=== PATIENT | female | born 1955 | race Caucasian/White ===

== ENCOUNTER 2020-09-13 09:58 | Outpatient (REF) | payer OTHER, SELFPAY ==
[2020-09-13 11:35] LABS: Digoxin 0.6 ng/mL (0.8-2.0)
[2020-09-13 11:50] LABS: Cholesterol 143 mg/dL; HDL Cholesterol 44 mg/dL; LDL Cholesterol Calculated 65 mg/dl; Triglycerides 173 mg/dL
[2020-09-13 11:56] LABS: Anion Gap 12 (12-20); Blood Urea Nitrogen 20 mg/dL (9-16); Calcium 8.9 mg/dL (8.4-10.2); Carbon Dioxide 28 mmol/L (22-29); Chloride 105 mmol/L (96-108); Estimated Glomerular Filt Rate 42; Glucose Random 133 mg/dL (60-115); Potassium 4.3 mmol/l (3.3-5.1); Sodium 141 mmol/L (135-145)
[2020-09-13 12:17] LABS: Thyroid Stimulating Hormone 2.43 mIU/mL (0.32-4.0)
== END 2020-09-13 09:59 | disposition home or self-care (01) ==
LOC: HO.HMGCX 09:58
PROVIDERS: PCP Internal Medicine; Referring Provider Internal Medicine Cardiovascular Disease; Visit Provider Internal Medicine
DX: I48.20 Chronic atrial fibrillation, unspecified (principal)
CPT/HCPCS: 80048; 80061; 80162; 84443

== ENCOUNTER 2020-12-04 13:45 | Outpatient (REF) | payer OTHER, SELFPAY ==
[2020-12-04 17:22] LABS: Anion Gap 16 (12-20); Blood Urea Nitrogen 24 mg/dL (9-16); Calcium 9.9 mg/dL (8.4-10.2); Carbon Dioxide 28 mmol/L (22-29); Chloride 105 mmol/L (96-108); Digoxin 0.8 ng/mL (0.8-2.0); Estimated Glomerular Filt Rate 40; Glucose Fasting 120 mg/dL (60-99); Potassium 4.8 mmol/l (3.3-5.1); Sodium 144 mmol/L (135-145)
== END 2020-12-04 13:46 | disposition home or self-care (01) ==
LOC: HO.HMGCLDS 13:45
PROVIDERS: PCP Internal Medicine; Visit Provider Internal Medicine Cardiovascular Disease
DX: I48.0 Paroxysmal atrial fibrillation (principal); E78.5 Hyperlipidemia, unspecified
CPT/HCPCS: 36415; 80048; 80162

== ENCOUNTER → 2020-12-10 13:38 | Outpatient (BNVA) | payer OTHER, SELFPAY | PROVIDERS: PCP Pediatrics; Visit Provider Internal Medicine Cardiovascular Disease | DX: I48.91 Unspecified atrial fibrillation (principal); I50.9 Heart failure, unspecified | CPT/HCPCS: 99212 ==

== ENCOUNTER → 2021-01-10 14:00 | Outpatient (REF) | payer OTHER, SELFPAY ==
--- NOTE | 2021-01-10 14:07 | CA_ITS ---
Transthoracic Echocardiogram Patient (Last, First, Middle): Sunitha Santana, Gender: Female Date of : 1955 Age: 65 Procedure Date: 01/10/2021 Procedure Type: Transthoracic Echocardiogram Location: OP Height: 175.26 cm Weight: 109.77 kg BSA: 2.24 m2 Heart Rate: bpm BP: 124 / 74 mmHg Gate Watchman: ARNALDO Referring MD: Abel Lopez MD Obgyn Hospitalist Physician: Abel Lopez MD Symptoms: I48.91 - Unspecified atrial fibrillation Study Quality: Fair ECG Rhythm: Atrial Fibrillation Conclusions: - 1. [id number] LV systolic dysfunction with LVEF of 40-45% with mild LVH 2. Severely dilated left atrium 3. Mildly dilated ascending aorta 4. Mild mitral regurgitation 5. Normal RV systolic pressure 6. No gross pericardial effusion Findings Left Ventricle Normal left ventricular cavity size. There is mildly increased left ventricular wall thickness. The left ventricular systolic function is mild to moderately decreased. The visually estimated ejection fraction is between 40-45%. Diastolic function is indeterminate on the basis of available data. Right Ventricle Normal right ventricular cavity size and systolic function. Atria The left atrium is severely dilated. Interatrial shunt cannot be excluded. The right atrium is mildly dilated. Aortic Valve There is mild calcification of the aortic valve. There is no aortic valve stenosis. There is no aortic valve regurgitation. Mitral Valve There is mild anterior and posterior mitral leaflet thickening. There is trace mitral valve regurgitation. There is no mitral valve stenosis. Pulmonic Valve The pulmonic valve was not well visualized. Tricuspid Valve Likely normal tricuspid valve structure and function. There is mild tricuspid valve regurgitation. The right ventricular systolic pressure is normal. The right ventricular systolic pressure is 25 mmHg. Normal right atrial pressure. There is no evidence of pulmonary hypertension. Great Vessels The pulmonary artery was not well visualized. There is mild dilatation of the ascending aorta measuring 4.00 cm. Venous The inferior vena cava is normal in size and collapses greater than 50% with inspiration. Pericardium/Pleural There is no evidence of pericardial effusion. Prior Study Comparison No significant change compared to prior study dated: 01/06/2020. Measurements 2D Linear Measurements IVSd: 1.61 0.6-0.9/0.6-1.0 cm LVIDd: 4.54 3.9-5.3/4.2-5.9 cm LVIDd Index: 2.03 2.4-3.2/2.2-3.1 cm/m2 LVIDs: 3.65 2.0-3.6 cm LVPWd: 1.15 0.7-1.1 cm Ao Root: 3.20 2.1-3.5 cm LA Diam: 4.50 2.7-3.8/3.0-4.0 cm LAIDs Index: 2.01 1.5-2.3 cm/m2 LV Mass: 307.26 67-162/88-224 g LV Mass Index: 137.17 43-95/49-115 g/m2 LVOT Diam: 2.10 3.0+(-)1.3 cm 2D Systolic Function EF 4C: 52.20 >55% EF 2C: 47.80 >55% EF BiP: 49.60 >55% Mitral Valve MV Pk E: 0.51 MV Decel Time: 127.00 E'Lateral: 6.97 E'Medial: 6.69 E/E' Med: 7.70 E/E' Lat: 7.30 PHT: 37.00 MVA PHT: 5.95 Decel [place]: 4.16 Aortic Valve AoV Pk Tacho: 0.95 AoV Pk Grad: 4.00 LVOT LVOT Pk Tacho: 0.72 LVOT Mn Tacho: 0.42 LVOT VTI: 0.11 LVOT Pk Grad: 2.00 LVOT Mn Grad: 1.00 LVOT Diam: 2.10 LVOT Area: 3.46 Diastolic Function MV Pk E: 0.51 E'Medial: 6.69 E/E' Med: 7.70 E' Laterial: 6.97 E/E' Lat: 7.30 Tricuspid Valve TR Pk Tacho: 2.35 TR Pk Grad: 22.00 RA Press: 3.00 RVSP: 25.00 Great Vessels Aorta Ao Root-2D: 3.20 2.0-3.7 cm Ao Asc: 4.00 2.1-3.4 cm Updated in Other Vendor System with Status of Final Abel Lopez MD electronically signed on 01/12/2021 10:29:18 AM with status of Final
== END ==
LOC: HO.CARD 14:00
PROVIDERS: PCP Internal Medicine; Visit Provider Internal Medicine Cardiovascular Disease
DX: I48.91 Unspecified atrial fibrillation (principal); I50.9 Heart failure, unspecified
CPT/HCPCS: 93306

== ENCOUNTER 2021-04-04 10:09 | Outpatient (REF) | payer OTHER, SELFPAY ==
[2021-04-04 12:15] LABS: Cholesterol 160 mg/dL; HDL Cholesterol 41 mg/dL; LDL Cholesterol Calculated 72 mg/dl; Triglycerides 237 mg/dL
[2021-04-04 12:19] LABS: Thyroid Stimulating Hormone 2.07 uIU/mL (0.32-4.0)
== END 2021-04-04 10:10 | disposition home or self-care (01) ==
LOC: HO.HMGCLDS 10:09
PROVIDERS: PCP Internal Medicine; Visit Provider Internal Medicine
DX: E11.9 Type 2 diabetes mellitus without complications (principal); E03.9 Hypothyroidism, unspecified
CPT/HCPCS: 36415; 80061; 84443

== ENCOUNTER → 2021-06-04 13:27 | Outpatient (BNVA) | payer OTHER, SELFPAY | PROVIDERS: PCP Internal Medicine; Referring Provider Internal Medicine; Visit Provider Internal Medicine Cardiovascular Disease | DX: I48.91 Unspecified atrial fibrillation (principal); I50.9 Heart failure, unspecified; I42.9 Cardiomyopathy, unspecified | CPT/HCPCS: 93005; 99212 ==

== ENCOUNTER 2021-06-24 09:09 | Outpatient (REF) | payer OTHER, SELFPAY ==
[2021-06-24 11:15] LABS: MANUAL DIFF FLAG NO
[2021-06-24 11:29] LABS: Basophils Absolute Auto 0.1 X10*3/uL (0.0-0.2); Basophils Percent Auto 0.5 % (0-2); Eosinophils Absolute Auto 0.3 X10*3/uL (0.0-0.4); Eosinophils Percent Auto 2.5 % (0-4); Hematocrit 43.4 % (37-47); Hemoglobin 13.5 g/dl (12.0-16.0); Imm Gran Abs Auto 0.05 X10*3/uL (0.00-0.03); Imm Gran Pct Auto 0.5 % (0.0-0.4); Lymphocytes Absolute Auto 2.2 X10*3/uL (1.2-4.9); Lymphocytes Percent Auto 22.6 % (20-40); Mean Corpuscular HGB Conc 31.1 g/dl (31.0-35.0); Mean Corpuscular Volume 83.6 fL (80-98); Mean Platelet Volume 10.4 fL (9.4-12.3); Monocytes Absolute Auto 0.7 X10*3/uL (0.1-1.2); Neutrophils Absolute Auto 6.6 X10*3/uL (2.0-8.3); Neutrophils Percent Auto 66.9 % (45-73); Platelet Count 317 X10*3/uL (160-400); Red Blood Count 5.19 X10*6/uL (4.20-5.50); Red Cell Distribution Width 16.3 % (11.0-16.0); White Blood Count 9.9 X10*3/uL (4.8-10.8)
[2021-06-24 11:34] LABS: B Type Natriuretic Peptide 125 pg/mL (<100)
[2021-06-24 11:35] LABS: Estimated Average Glucose 157 mg/dL; Hemoglobin A1c % 7.1 %
[2021-06-24 12:02] LABS: Thyroid Stimulating Hormone 3.66 uIU/mL (0.32-4.0)
[2021-06-24 12:23] LABS: Digoxin 0.6 ng/mL (0.8-2.0)
[2021-06-24 12:39] LABS: Alanine Aminotransferase 9 U/L (0-31); Alkaline Phosphatase 51 U/L (39-117); Anion Gap 15 (12-20); Aspartate Amino Transferase 17 U/L (5-31); Bilirubin Total 0.6 mg/dL (0.0-1.0); Blood Urea Nitrogen 32 mg/dL (9-16); Calcium 9.9 mg/dL (8.4-10.2); Carbon Dioxide 25 mmol/L (22-29); Chloride 106 mmol/L (96-108); Cholesterol 152 mg/dL; Estimated Glomerular Filt Rate 31; Glucose Fasting 139 mg/dL (60-99); HDL Cholesterol 43 mg/dL; LDL Cholesterol Calculated 74 mg/dl; Potassium 4.6 mmol/L (3.3-5.1); Sodium 141 mmol/L (135-145); Total Protein 6.4 g/dL (6.5-8.0); Triglycerides 175 mg/dL
[2021-06-24 14:36] LABS: Creatinine Urine 101.73 mg/dL; Microalbum/Creatinine Ratio Ur 106.1 ug/mg cr
== END 2021-06-24 09:10 | disposition home or self-care (01) ==
LOC: HO.HMGCLDS 09:09
PROVIDERS: Absent Provider Internal Medicine Cardiovascular Disease; PCP Internal Medicine; Visit Provider Internal Medicine
DX: Z00.00 Encounter for general adult medical examination without abnormal findings (principal); I42.9 Cardiomyopathy, unspecified; E11.9 Type 2 diabetes mellitus without complications; I48.20 Chronic atrial fibrillation, unspecified; E03.9 Hypothyroidism, unspecified
CPT/HCPCS: 36415; 80048; 80053; 80061; 80162; 82043; 83036; 83880; 84443; 85025

== ENCOUNTER 2021-07-24 09:58 | Outpatient (REF) | payer OTHER, SELFPAY ==
[2021-07-24 11:40] LABS: Anion Gap 13 (12-20); Blood Urea Nitrogen 28 mg/dL (9-16); Calcium 10.1 mg/dL (8.4-10.2); Carbon Dioxide 27 mmol/L (22-29); Chloride 106 mmol/L (96-108); Estimated Glomerular Filt Rate 35; Glucose Random 135 mg/dL (60-115); Potassium 4.8 mmol/L (3.3-5.1); Sodium 141 mmol/L (135-145)
== END 2021-07-24 09:59 | disposition home or self-care (01) ==
LOC: HO.HMGCLDS 09:58
PROVIDERS: PCP Internal Medicine; Visit Provider Internal Medicine
DX: N28.9 Disorder of kidney and ureter, unspecified (principal)
CPT/HCPCS: 36415; 80048

== ENCOUNTER 2021-11-21 13:40 | Outpatient (REF) | payer OTHER, SELFPAY ==
[2021-11-21 16:59] LABS: Cholesterol 157 mg/dL; HDL Cholesterol 45 mg/dL; LDL Cholesterol Calculated 67 mg/dl; Triglycerides 226 mg/dL
[2021-11-21 17:19] LABS: Thyroid Stimulating Hormone 2.19 uIU/mL (0.32-4.0)
== END 2021-11-21 13:41 | disposition home or self-care (01) ==
LOC: HO.HMGCLDS 13:40
PROVIDERS: PCP Internal Medicine; Visit Provider Internal Medicine
DX: E03.9 Hypothyroidism, unspecified (principal); E11.9 Type 2 diabetes mellitus without complications
CPT/HCPCS: 36415; 80061; 84443

== ENCOUNTER 2021-12-12 13:27 | Outpatient (REF) | payer OTHER, SELFPAY ==
[2021-12-12 14:51] LABS: MANUAL DIFF FLAG NO
[2021-12-12 15:08] LABS: Basophils Percent Auto 0.4 % (0-2); Eosinophils Absolute Auto 0.3 X10*3/uL (0.0-0.4); Eosinophils Percent Auto 2.6 % (0-4); Hematocrit 44.8 % (37.0-47.0); Imm Gran Abs Auto 0.04 X10*3/uL (0.00-0.03); Imm Gran Pct Auto 0.4 % (0.0-0.4); Lymphocytes Absolute Auto 2.9 X10*3/uL (1.2-4.9); Lymphocytes Percent Auto 25.7 % (20-40); Mean Corpuscular HGB Conc 31.3 g/dl (31.0-35.0); Mean Corpuscular Hemoglobin 27.2 pg (27.0-33.0); Mean Platelet Volume 9.9 fL (9.4-12.3); Monocytes Absolute Auto 0.7 X10*3/uL (0.1-1.2); Monocytes Percent Auto 6.6 % (2-11); Neutrophils Absolute Auto 7.2 x10*3/uL (2.0-8.3); Neutrophils Percent Auto 64.3 % (45-73); Platelet Count 297 X10*3/uL (160-400); Red Blood Count 5.15 X10*6/uL (4.20-5.50); Red Cell Distribution Width 14.5 % (11.0-16.0); White Blood Count 11.1 X10*3/uL (4.8-10.8)
[2021-12-12 15:28] LABS: Alanine Aminotransferase 11 U/L (0-31); Albumin Level 3.9 g/dL (3.5-5.0); Alkaline Phosphatase 54 U/L (39-117); Anion Gap 11 (12-20); Aspartate Amino Transferase 19 U/L (5-31); Bilirubin Total 0.7 mg/dL (0.0-1.0); Blood Urea Nitrogen 27 mg/dL (9-16); Carbon Dioxide 27 mmol/L (22-29); Chloride 107 mmol/L (96-108); Cholesterol 151 mg/dL; Estimated Glomerular Filt Rate 34; Glucose Fasting 105 mg/dL (60-99); HDL Cholesterol 39 mg/dL; LDL Cholesterol Calculated 59 mg/dl; Potassium 4.6 mmol/L (3.3-5.1); Sodium 140 mmol/L (135-145); Total Protein 6.5 g/dL (6.5-8.0); Triglycerides 265 mg/dL
[2021-12-12 15:31] LABS: Digoxin 0.7 ng/mL (0.8-2.0)
== END 2021-12-12 13:28 | disposition home or self-care (01) ==
LOC: HO.LAB 13:27
PROVIDERS: Internal Medicine; PCP Internal Medicine; Referring Provider Internal Medicine; Visit Provider Internal Medicine Cardiovascular Disease
DX: Z00.00 Encounter for general adult medical examination without abnormal findings (principal); I42.9 Cardiomyopathy, unspecified; I48.20 Chronic atrial fibrillation, unspecified; I11.0 Hypertensive heart disease with heart failure; E78.5 Hyperlipidemia, unspecified; E03.9 Hypothyroidism, unspecified; R53.83 Other fatigue; Z13.0 Encounter for screening for diseases of the blood and blood-forming organs and certain disorders involving the immune mechanism; Z87.891 Personal history of nicotine dependence; Z91.018 Allergy to other foods; Z79.84 Long term (current) use of oral hypoglycemic drugs; Z79.899 Other long term (current) drug therapy
CPT/HCPCS: 36415; 80048; 80053; 80061; 80162; 85025; 85027; 99212

== ENCOUNTER → 2022-01-30 12:49 | Outpatient (REF) | payer OTHER, SELFPAY ==
--- NOTE | 2022-01-30 12:52 | CA_ITS ---
Transthoracic Echocardiogram Patient (Last, First, Middle): Sunitha Santana, Gender: Female Date of : 1955 Age: 66 Procedure Date: 01/30/2022 Procedure Type: Transthoracic Echocardiogram Location: OP Height: 175.26 cm Weight: 105.69 kg BSA: 2.20 m2 Heart Rate: bpm BP: 130 / 75 mmHg Insolvency Practitioner: EL Referring MD: Abel Lopez MD Symptoms: I42.9 - Cardiomyopathy, unspecified Study Quality: Fair ECG Rhythm: Atrial Fibrillation Conclusions: - The left ventricular systolic function is low normal. The visually estimated ejection fraction is between 50-55%. - Mildly increased right ventricular cavity size. - The left atrium is severely dilated. Findings Left Ventricle Normal left ventricular cavity size. There is mildly increased left ventricular wall thickness. The left ventricular systolic function is low normal. The visually estimated ejection fraction is between 50-55%. There is no evidence of regional wall motion abnormalities. Diastolic function is indeterminate on the basis of available data. Right Ventricle Mildly increased right ventricular cavity size. There is normal right ventricular systolic function. Atria The left atrium is severely dilated. The right atrium is normal in size. Aortic Valve There is a normal trileaflet aortic valve. There is mild calcification of the aortic valve. There is no aortic valve stenosis. There is no aortic valve regurgitation. Mitral Valve The mitral valve appears normal. There is trace mitral valve regurgitation. There is no mitral valve stenosis. Pulmonic Valve The pulmonic valve was not well visualized. Tricuspid Valve There is mild tricuspid valve regurgitation. The pulmonary artery systolic pressure is normal. Great Vessels The aortic annulus, sinuses of valsalva, and asc aorta are normal in size. Venous The inferior vena cava is normal in size and collapses greater than 50% with inspiration. Pericardium/Pleural There is no evidence of pericardial effusion. Prior Study Comparison Changes noted compared to prior study dated: 01/10/2021. Improvement in LVEF. Measurements 2D Linear Measurements IVSd: 1.54 0.6-0.9/0.6-1.0 cm LVIDd: 4.55 3.9-5.3/4.2-5.9 cm LVIDd Index: 2.07 2.4-3.2/2.2-3.1 cm/m2 LVIDs: 3.29 2.0-3.6 cm LVPWd: 1.10 0.7-1.1 cm LA Diam: 4.60 2.7-3.8/3.0-4.0 cm LAIDs Index: 2.09 1.5-2.3 cm/m2 LV Mass: 288.60 67-162/88-224 g LV Mass Index: 131.18 43-95/49-115 g/m2 LVOT Diam: 2.10 3.0+(-)1.3 cm 2D Systolic Function EF 4C: 53.80 >55% EF 2C: 55.10 >55% EF BiP: 54.50 >55% Mitral Valve MV Pk E: 0.68 MV Decel Time: 231.00 E'Lateral: 12.20 E'Medial: 6.96 E/E' Med: 9.80 E/E' Lat: 5.60 PHT: 68.00 MVA PHT: 3.24 Decel [place]: 2.95 Aortic Valve AoV Pk Tacho: 1.10 AoV Mn Tacho: 0.74 AoV VTI: 0.24 AoV Pk Grad: 5.00 Aov Mn Grad: 3.00 KEIKO Cont.VTI: 2.24 LVOT LVOT Pk Tacho: 0.86 LVOT Mn Tacho: 0.56 LVOT VTI: 0.16 LVOT Pk Grad: 3.00 LVOT Mn Grad: 2.00 LVOT Diam: 2.10 LVOT Area: 3.46 Diastolic Function MV Pk E: 0.68 E'Medial: 6.96 E/E' Med: 9.80 E' Laterial: 12.20 E/E' Lat: 5.60 Right Ventricle TAPSE (mm): 22.60 TVS' Tacho: 10.10 Tricuspid Valve TR Pk Tacho: 2.36 TR Pk Grad: 22.00 RA Press: 3.00 RVSP: 25.00 Great Vessels Aorta Sinus of Valsalva: 3.51 2.0-3.[address] [place]: 3.19 1.7-3.4 cm Ao Asc: 3.70 2.1-3.4 cm Updated in Other Vendor System with Status of Final Mahin Queen MD electronically signed on 02/01/2022 12:01:36 PM with status of Final
== END ==
LOC: HO.CARD 12:49
PROVIDERS: PCP Internal Medicine; Visit Provider Internal Medicine Cardiovascular Disease
DX: I42.9 Cardiomyopathy, unspecified (principal)
CPT/HCPCS: 93306

== ENCOUNTER → 2022-06-10 10:06 | Outpatient (BNVA) | payer OTHER, SELFPAY | PROVIDERS: PCP Internal Medicine; Referring Provider Internal Medicine; Visit Provider Internal Medicine Cardiovascular Disease | DX: I48.20 Chronic atrial fibrillation, unspecified (principal); I48.91 Unspecified atrial fibrillation | CPT/HCPCS: 93005; 99212 ==

== ENCOUNTER 2022-07-17 09:11 | Outpatient (REF) | payer OTHER, SELFPAY ==
[2022-07-17 11:38] LABS: MANUAL DIFF FLAG NO
[2022-07-17 11:50] LABS: Basophils Absolute Auto 0.1 X10*3/uL (0.0-0.2); Basophils Percent Auto 0.7 % (0-2); Eosinophils Absolute Auto 0.2 X10*3/uL (0.0-0.4); Eosinophils Percent Auto 2.6 % (0-4); Hematocrit 45.5 % (37.0-47.0); Hemoglobin 14.6 g/dl (12.0-16.0); Imm Gran Abs Auto 0.04 X10*3/uL (0.00-0.03); Imm Gran Pct Auto 0.4 % (0.0-0.4); Lymphocytes Absolute Auto 2.5 X10*3/uL (1.2-4.9); Lymphocytes Percent Auto 27.3 % (20-40); Mean Corpuscular HGB Conc 32.1 g/dl (31.0-35.0); Mean Corpuscular Hemoglobin 27.7 pg (27.0-33.0); Mean Corpuscular Volume 86.3 fL (80.0-98.0); Mean Platelet Volume 10.3 fL (9.4-12.3); Monocytes Absolute Auto 0.7 X10*3/uL (0.1-1.2); Monocytes Percent Auto 7.2 % (2-11); Neutrophils Absolute Auto 5.7 x10*3/uL (2.0-8.3); Neutrophils Percent Auto 61.8 % (45-73); Platelet Count 271 X10*3/uL (160-400); Red Blood Count 5.27 X10*6/uL (4.20-5.50); Red Cell Distribution Width 14.2 % (11.0-16.0); White Blood Count 9.2 X10*3/uL (4.8-10.8)
[2022-07-17 11:52] LABS: Estimated Average Glucose 154 mg/dL
[2022-07-17 12:00] LABS: Alanine Aminotransferase 10 U/L (0-31); Albumin Level 3.9 g/dL (3.5-5.0); Alkaline Phosphatase 49 U/L (39-117); Anion Gap 17 (12-20); Aspartate Amino Transferase 17 U/L (5-31); Bilirubin Total 0.8 mg/dL (0.0-1.0); Blood Urea Nitrogen 31 mg/dL (9-16); Calcium 9.8 mg/dL (8.4-10.2); Carbon Dioxide 24 mmol/L (22-29); Chloride 106 mmol/L (96-108); Cholesterol 166 mg/dL; Estimated Glomerular Filt Rate 33; Glucose Fasting 146 mg/dL (60-99); HDL Cholesterol 42 mg/dL; LDL Cholesterol Calculated 78 mg/dl; Potassium 4.5 mmol/L (3.3-5.1); Sodium 142 mmol/L (135-145); Total Protein 6.2 g/dL (6.5-8.0); Triglycerides 234 mg/dL
[2022-07-17 12:15] LABS: Digoxin 0.7 ng/mL (0.8-2.0)
[2022-07-17 12:21] LABS: Thyroid Stimulating Hormone 2.88 uIU/mL (0.32-4.0)
[2022-07-17 16:20] LABS: Creatinine Urine 72.19 mg/dL; Microalbum/Creatinine Ratio Ur 23.5 ug/mg cr
== END 2022-07-17 09:12 | disposition home or self-care (01) ==
LOC: HO.HMGCLDS 09:11
PROVIDERS: Absent Provider Internal Medicine Cardiovascular Disease; PCP Internal Medicine; Visit Provider Internal Medicine
DX: Z00.00 Encounter for general adult medical examination without abnormal findings (principal); Z13.0 Encounter for screening for diseases of the blood and blood-forming organs and certain disorders involving the immune mechanism; I48.20 Chronic atrial fibrillation, unspecified; E11.69 Type 2 diabetes mellitus with other specified complication; E66.01 Morbid (severe) obesity due to excess calories; Z79.899 Other long term (current) drug therapy
CPT/HCPCS: 36415; 80048; 80053; 80061; 80162; 82043; 83036; 84443; 85025

== ENCOUNTER 2022-08-04 06:38 | Day surgery (SDC) | payer OTHER, SELFPAY ==
[2022-07-29 13:33] VITALS: BMI 34.1
--- NOTE | 2022-07-31 13:29 | MHC.SHP ---
Pre-Procedural Eval Section A Date of Service: 07/31/22 The patient is an INPATIENT: No Changes since office visit: No Cold of Flu in the past 2 weeks, No New Medical Problems, No Changes in Medication and No Patient answered all questions The History & Physical has been completed within 30 days and I have reviewed it.: Yes Section B Chief Complaint: Age-related nuclear cataract, left eye Allergies: Allergies Allergy/AdvReac Type Severity Reaction Status Date / Time onion [ONIONS] Allergy Mild ITCHING,HIV Verified 07/24/22 08:54 ES Plan Diagnosis/Plan: Unchanged I have reviewed the history and physical and performed a pertinent physical examination on my patient. No changes have occurred unless specified.
--- NOTE | 2022-08-01 09:20 | HO.ANESPROP2 ---
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) Preop exam for internal medicine (Acute) Obesity (Acute) Hypertension (Acute) Cardiomyopathy (Acute) Hyperlipidemia (Acute) Hypothyroidism (Acute) Atrial fibrillation (Acute) Heart failure (Acute) Past Medical History Medical History (Updated 07/29/22 @ 13:45 by Sherrie Lincoln RN) Atrial fibrillation Cardiomyopathy Heart failure History of cardioversion Hyperlipidemia Hypertension Hypothyroidism Obesity Sleep apnea Family History Family History Family/Other Medical history unknown Surgical History Surgical History (Updated 07/29/22 @ 13:39 by Sherrie Lincoln RN) H/O colonoscopy History of esophagogastroduodenoscopy (EGD) History of incisional hernia repair Hx of hernia repair Social History Social History Housing: House Alcohol intake: current Alcohol intake frequency: holidays/special occasions only Patient Tobacco Use Status: Former Tobacco user Tobacco use type: Cigarette e-Cigarette/Vaping Use: Never Used Second Hand Smoke Exposure: No Advance Directives: No Advance Directives Information Provided: Yes (brochure mailed) Advance Directives on File: No service: No Current occupational status: retired Cognitive needs: Yes (cane/ transport chair) Hearing needs: No Vision needs: Yes (reading glasses) Meds Allergies Allergy/AdvReac Type Severity Reaction Status Date / Time onion [ONIONS] Allergy Mild ITCHING,HIV Verified 07/24/22 08:54 ES Exam Exam Date and Time: August 01, 2022 0920 Height,Weight and Vital Signs: Height 5 ft 9 in Weight 104.78 kg Narrative Narrative: EKG 05/2022 atrial fibrillation with nonspecific ST changes ECHO 2021 Conclusions: - The left ventricular systolic function is low normal.? The ? ? visually estimated ejection fraction is between 50-55%.? - Mildly increased right ventricular cavity size.? - The left atrium is severely dilated. ? Assessment and Plan Assessment Anesthesia Assessment: Chart Reviewed Documented by User: Carl Matthew MD 08/04/22 08:16 [facility] Past Medical History Medical History (Updated 07/29/22 @ 13:45 by Sherrie Lincoln RN) Atrial fibrillation Cardiomyopathy Heart failure History of cardioversion Hyperlipidemia Hypertension Hypothyroidism Obesity Sleep apnea Family History Family History Family/Other Medical history unknown Family history of problems with anesthesia: No Surgical History Surgical History (Updated 07/29/22 @ 13:39 by Sherrie Lincoln RN) H/O colonoscopy History of esophagogastroduodenoscopy (EGD) History of incisional hernia repair Hx of hernia repair History of Problems with Anesthesia: No Social History Social History Housing: House Alcohol intake: current Alcohol intake frequency: holidays/special occasions only Patient Tobacco Use Status: Former Tobacco user Tobacco use type: Cigarette e-Cigarette/Vaping Use: Never Used Second Hand Smoke Exposure: No Advance Directives: No Advance Directives Information Provided: Yes (brochure mailed) Advance Directives on File: No service: No Current occupational status: retired Cognitive needs: Yes (cane/ transport chair) Hearing needs: No Vision needs: Yes (reading glasses) Meds Allergies Allergy/AdvReac Type Severity Reaction Status Date / Time onion [ONIONS] Allergy Mild ITCHING,HIV Verified 07/24/22 08:54 ES Exam Airway Mallampati Class: II TM Dist: >3cm Neck ROM: Full Denture: Upper and Lower Loose/Missing/Broken Teeth: Yes Heart: irreg irreg +[id number] Lungs: cta b/l Assessment and Plan Assessment Anesthesia Assessment: Anesthesia Plan Discussed Final Anesthetic Review Family History of Problems with Anesthesia: No History of Problems with Anesthesia: No NPO: Yes ASA Class: III Final Preanesthetic Review: No Changes in Pt Med Stat, Meds/Allgs Chart Reviewed, Consent Obtained/Reviewed and Anes Risks/Benef Reviewed Patient Risk: Intermediate Procedure Risk: Low Assessment/Block/Sedation in SS: Assess/Block/Sedation-SS Anesthetic Plan Anesthetic Plan: MAC: and Agree w/ Assess. and Plan Disposition: Standard PACU
[2022-08-04 07:53] VITALS: BP 114/71; PULSE 69; RESP 17; TEMP 36.4; O2SAT 94
[2022-08-04] MEDS: Tetracaine HCl/PF 0.5% Oph Sol 4 ML DROPS 1 DROP EYE-LEFT (07:58)
[2022-08-04] MEDS: Lactated Ringers 500 ML 50 ML IV (08:02)
[2022-08-04] MEDS: Cyclopentolate 1 % Ophth Sol 2 ML DRPBTL 1 DROP EYE-LEFT ×3 (08:03→08:11)
[2022-08-04] MEDS: Tropicamide 1 % Ophth Sol 3 ML BTL 1 DROP EYE-LEFT ×3 (08:04→08:12)
[2022-08-04 08:06] LABS: Glucose, Whole Blood 147 mg/dL (60-115)
[2022-08-04] MEDS: Phenylephrine HCL 2.5% Oph SoL 2 ML BOTTLE 1 DROP EYE-LEFT ×3 (08:06→08:14)
--- NOTE | 2022-08-04 08:58 | HO.PNOPHT ---
Ophthalmology Procedure Procedure Date of Service: 08/04/22 Ophthalmology Viscoelastic: Healsandy Duet Dual Pack Pro Ophthalmology Lenses: TECGERMÁN [id number] (18) Procedure Notes: PREOPERATIVE DIAGNOSIS: Decreased visual acuity left eye secondary to cataract POSTOPERATIVE DIAGNOSIS: Same PROCEDURE: Left cataract extraction with intraocular lens insertion SURGEON: Felix Wu M.D. ANESTHESIA: Topical/MAC ESTIMATED BLOOD LOSS: None COMPLICATIONS: None After obtaining informed consent, the patient was brought to the operation room suite and placed in the supine position. After adequate sedation per anesthesia, topical drops of Tetracaine were given to the left eye. The eye was then prepped and draped in the usual sterile fashion. The operating room microscope was then positioned over the operative eye and a lid speculum placed. A paracentesis was created. Viscoelastic was then instilled into the anterior chamber. A three plane incision was then created temporally, utilizing a 2.85 mm keratome. Capsulotomy forceps were then utilized to create a circular tear capsulotomy. Hydrodissection and hydrodelineation were carried out until adequate mobilization of the nucleus occurred. Phacoemulsification was then utilized to remove the dense central nucleus followed by removal of the cortical material utilizing the automated aspiration irrigation unit. Viscoat elastic was instilled into the posterior capsular bag followed by placement of a posterior chamber intraocular lens without difficulty. The residual Viscoat elastic was then removed utilizing the automated IA machine. The wound was check and found to be watertight. The patient tolerated the procedure well and the lid speculum was removed. Intracameral injection of Vigamox 0.1 mL followed by a subtenon injection of Kenalog-40 0.2 mL were administered. The patient will be seen in the a.m.
[2022-08-04 09:29] VITALS: PULSE 64; RESP 16; TEMP 36.1; O2SAT 97
== END 2022-08-04 09:36 | disposition home or self-care (01) ==
PROVIDERS: PCP Internal Medicine; Visit Provider Ophthalmology
PROC: (CPT 66985; principal; 2022-08-04 08:40)
DX: H25.12 Age-related nuclear cataract, left eye (principal); H54.7 Unspecified visual loss; I10 Essential (primary) hypertension; E11.9 Type 2 diabetes mellitus without complications; E03.9 Hypothyroidism, unspecified; D64.9 Anemia, unspecified; I48.19 Other persistent atrial fibrillation; Z79.01 Long term (current) use of anticoagulants; Z79.84 Long term (current) use of oral hypoglycemic drugs; Z79.899 Other long term (current) drug therapy; Z87.891 Personal history of nicotine dependence
CPT/HCPCS: 66984; 82947; J3010; J3300; V2632

== ENCOUNTER 2022-08-18 06:30 | Day surgery (SDC) | payer OTHER, SELFPAY ==
[2022-07-29 13:42] VITALS: BMI 34.1
--- NOTE | 2022-08-15 09:02 | MHC.SHP ---
Pre-Procedural Eval Section A Date of Service: 08/15/22 The patient is an INPATIENT: No Changes since office visit: No Cold of Flu in the past 2 weeks, No New Medical Problems, No Changes in Medication and No Patient answered all questions The History & Physical has been completed within 30 days and I have reviewed it.: Yes Section B Chief Complaint: Age-related nuclear cataract, right eye Allergies: Allergies Allergy/AdvReac Type Severity Reaction Status Date / Time onion [ONIONS] Allergy Mild ITCHING,HIV Verified 07/24/22 08:54 ES Plan Diagnosis/Plan: Unchanged I have reviewed the history and physical and performed a pertinent physical examination on my patient. No changes have occurred unless specified.
--- NOTE | 2022-08-15 09:50 | HO.ANESPROP2 ---
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) Preop exam for internal medicine (Acute) Obesity (Acute) Hypertension (Acute) Cardiomyopathy (Acute) Hyperlipidemia (Acute) Hypothyroidism (Acute) Atrial fibrillation (Acute) Heart failure (Acute) Past Medical History Medical History (Updated 07/29/22 @ 13:45 by Sherrie Lincoln RN) Atrial fibrillation Cardiomyopathy Heart failure History of cardioversion Hyperlipidemia Hypertension Hypothyroidism Obesity Sleep apnea Family History Family History Family/Other Medical history unknown Family history of problems with anesthesia: No Surgical History Surgical History (Updated 07/29/22 @ 13:39 by Sherrie Lincoln RN) H/O colonoscopy History of esophagogastroduodenoscopy (EGD) History of incisional hernia repair Hx of hernia repair History of Problems with Anesthesia: No Social History Social History Housing: House Alcohol intake: current Alcohol intake frequency: holidays/special occasions only Patient Tobacco Use Status: Former Tobacco user Tobacco use type: Cigarette e-Cigarette/Vaping Use: Never Used Second Hand Smoke Exposure: No Advance Directives: No Advance Directives Information Provided: Yes (brochure mailed) Advance Directives on File: No service: No Current occupational status: retired Cognitive needs: Yes (cane/ transport chair) Hearing needs: No Vision needs: Yes (reading glasses) Meds Allergies Allergy/AdvReac Type Severity Reaction Status Date / Time onion [ONIONS] Allergy Mild ITCHING,HIV Verified 07/24/22 08:54 ES Exam Exam Date and Time: August 15, 2022 0950 Height,Weight and Vital Signs: Height 5 ft 9 in Weight 104.78 kg Assessment and Plan Assessment Anesthesia Assessment: Chart Reviewed Final Anesthetic Review Family History of Problems with Anesthesia: No History of Problems with Anesthesia: No Documented by User: Angelina Sarmiento MD 08/18/22 07:49 HPI - Anesthesia Eval Consult details Narrative: 67yo F for Right Cataract Extraction IOL Insertion PCP cleared Left eye 08/04/22 with MAC: Fent 50 Eliquis for afib. 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 EF 50-55% Hyperlipidemia (Acute) Hypothyroidism (Acute) Atrial fibrillation (Acute) Heart failure (Acute) Past Medical History Medical History (Updated 07/29/22 @ 13:45 by Sherrie Lincoln RN) Atrial fibrillation Cardiomyopathy Heart failure History of cardioversion Hyperlipidemia Hypertension Hypothyroidism Obesity Sleep apnea Family History Family History Family/Other Medical history unknown Surgical History Surgical History (Updated 07/29/22 @ 13:39 by Sherrie Lincoln, RN) H/O colonoscopy History of esophagogastroduodenoscopy (EGD) History of incisional hernia repair Hx of hernia repair Social History Social History Housing: House Alcohol intake: current Alcohol intake frequency: holidays/special occasions only Patient Tobacco Use Status: Former Tobacco user Tobacco use type: Cigarette e-Cigarette/Vaping Use: Never Used Second Hand Smoke Exposure: No Advance Directives: No Advance Directives Information Provided: Yes (brochure mailed) Advance Directives on File: No service: No Current occupational status: retired Cognitive needs: Yes (cane/ transport chair) Hearing needs: No Vision needs: Yes (reading glasses) Meds Allergies Allergy/AdvReac Type Severity Reaction Status Date / Time onion [ONIONS] Allergy Mild ITCHING,HIV Verified 07/24/22 08:54 ES Exam Height,Weight and Vital Signs: Height 5 ft 9 in Weight 104.78 kg Vital Signs Temp Pulse Resp BP Pulse Ox O2 Del Method 08/18/22 07:19 97.0 F 62 16 127/60 98 Room Air Pertinent Lab Results Pertinent Lab Results: Lab Results 08/18/22 Range/Units 07:23 POC Glucose 142 H (60-115) mg/dL Narrative Narrative: Procedure Date:? 01/30/2022 Procedure Type:? Transthoracic Echocardiogram ECG Rhythm:? ? ? Atrial Fibrillation ?? Conclusions: - The left ventricular systolic function is low normal.? The ? ? visually estimated ejection fraction is between 50-55%.? - Mildly increased right ventricular cavity size.? - The left atrium is severely dilated. ? Airway Mallampati Class: II TM Dist: >3cm Neck ROM: Full Denture: Upper and Lower Heart: Irregularly irregular Lungs: CTAB Assessment and Plan Assessment Anesthesia Assessment: Anesthesia Plan Discussed Final Anesthetic Review NPO: Yes ASA Class: III Final Preanesthetic Review: No Changes in Pt Med Stat, Meds/Allgs Chart Reviewed, Consent Obtained/Reviewed and Anes Risks/Benef Reviewed Patient Risk: Intermediate Procedure Risk: Low Assessment/Block/Sedation in SS: Assess/Block/Sedation- Anesthetic Plan Anesthetic Plan: MAC: Disposition: Standard PACU
[2022-08-18 07:10] VITALS: BMI 34.0
[2022-08-18 07:19] VITALS: BP 127/60; PULSE 62; RESP 16; TEMP 36.1; O2SAT 98
[2022-08-18 07:31] LABS: Glucose, Whole Blood 142 mg/dL (60-115)
[2022-08-18] MEDS: Lactated Ringers 500 ML 50 ML IV (07:31)
[2022-08-18] MEDS: Tetracaine HCl/PF 0.5% Oph Sol 4 ML DROPS 1 DROP EYE-RIGHT (07:32)
[2022-08-18] MEDS: Phenylephrine HCL 2.5% Oph SoL 2 ML BOTTLE 1 DROP EYE-RIGHT ×3 (07:32→07:39)
[2022-08-18] MEDS: Tropicamide 1 % Ophth Sol 3 ML BTL 1 DROP EYE-RIGHT ×3 (07:33→07:39)
[2022-08-18] MEDS: Cyclopentolate 1 % Ophth Sol 2 ML DRPBTL 1 DROP EYE-RIGHT ×3 (07:34→07:40)
--- NOTE | 2022-08-18 08:18 | HO.PNOPHT ---
Ophthalmology Procedure Procedure Date of Service: 08/18/22 Ophthalmology Viscoelastic: Healsandy Duet Dual Pack Pro Ophthalmology Lenses: TECNIS [id number] (17.5) Procedure Notes: PREOPERATIVE DIAGNOSIS: Decreased visual acuity right eye secondary to cataract POSTOPERATIVE DIAGNOSIS: Same PROCEDURE: Right cataract extraction with intraocular lens insertion SURGEON: Felix Wu M.D. ANESTHESIA: Topical/MAC ESTIMATED BLOOD LOSS: None COMPLICATIONS: None After obtaining informed consent, the patient was brought to the operating room suite and placed in the supine position. After adequate sedation per anesthesia, topical drops of Tetracaine were given to the right eye. The eye was then prepped and draped in the usual sterile fashion. The operating room microscope was then positioned over the operative eye and a lid speculum placed. A paracentesis was created. Viscoelastic was then instilled into the anterior chamber. A three plane incision was then created temporally, utilizing a 2.85 mm keratome. Capsulotomy forceps were then utilized to create a circular tear capsulotomy. Hydrodissection and hydrodelineation were carried out until adequate mobilization of the nucleus occurred. Phacoemulsification was then utilized to remove the dense central nucleus followed by removal of the cortical material utilizing the automated aspiration irrigation unit. Viscoelastic was instilled into the posterior capsular bag followed by placement of a posterior chamber intraocular lens without difficulty. The residual Viscoelastic was then removed utilizing the automated IA machine. The wound was checked and found to be watertight. The patient tolerated the procedure well and the lid speculum was removed. Intracameral injection of Vigamox 0.1 mL followed by a subtenon injection of Kenalog-40 0.2 mL were administered. The patient will be seen in the a.m.
[2022-08-18 08:48] VITALS: BP 130/75; PULSE 57; RESP 17; TEMP 36.3; O2SAT 97
== END 2022-08-18 08:56 | disposition home or self-care (01) ==
PROVIDERS: PCP Internal Medicine; Visit Provider Ophthalmology
PROC: (CPT 66985; principal; 2022-08-18 08:20)
DX: H25.11 Age-related nuclear cataract, right eye (principal); H54.7 Unspecified visual loss; G47.33 Obstructive sleep apnea (adult) (pediatric); I42.9 Cardiomyopathy, unspecified; I50.9 Heart failure, unspecified; E78.5 Hyperlipidemia, unspecified; I10 Essential (primary) hypertension; E03.9 Hypothyroidism, unspecified; E11.69 Type 2 diabetes mellitus with other specified complication; E66.9 Obesity, unspecified; Z68.34 Body mass index [BMI] 34.0-34.9, adult; I48.91 Unspecified atrial fibrillation; Z79.01 Long term (current) use of anticoagulants; Z79.84 Long term (current) use of oral hypoglycemic drugs; Z79.899 Other long term (current) drug therapy; Z87.891 Personal history of nicotine dependence
CPT/HCPCS: 66984; 82947; J3010; J3300; V2632

== ENCOUNTER → 2022-12-11 13:14 | Outpatient (BNVA) | payer OTHER, SELFPAY | PROVIDERS: PCP Internal Medicine; Referring Provider Internal Medicine; Visit Provider Internal Medicine Cardiovascular Disease | DX: I48.91 Unspecified atrial fibrillation (principal); I50.9 Heart failure, unspecified | CPT/HCPCS: 93005; 99212 ==

== ENCOUNTER 2023-03-03 09:44 | Outpatient (REF) | payer OTHER, SELFPAY ==
[2023-03-03 12:10] LABS: Estimated Average Glucose 143 mg/dL; Hemoglobin A1c % 6.6 %
[2023-03-03 12:23] LABS: Digoxin 0.9 ng/mL (0.8-2.0)
[2023-03-03 12:35] LABS: Anion Gap 13 (12-20); Blood Urea Nitrogen 38 mg/dL (9-16); Calcium 9.5 mg/dL (8.4-10.2); Carbon Dioxide 25 mmol/L (22-29); Chloride 111 mmol/L (96-108); Cholesterol 147 mg/dL; Estimated Glomerular Filt Rate 21; Glucose Fasting 125 mg/dL (60-99); Glucose Random 126 mg/dL (60-115); HDL Cholesterol 36 mg/dL; LDL Cholesterol Calculated 67 mg/dl; Potassium 4.6 mmol/L (3.3-5.1); Sodium 144 mmol/L (135-145); Triglycerides 223 mg/dL
[2023-03-03 12:38] LABS: Thyroid Stimulating Hormone 1.32 uIU/mL (0.32-4.0)
== END 2023-03-03 09:45 | disposition home or self-care (01) ==
LOC: HO.HMGCLDS 09:44
PROVIDERS: Absent Provider Internal Medicine; PCP Internal Medicine; Visit Provider Internal Medicine Cardiovascular Disease
DX: E78.5 Hyperlipidemia, unspecified (principal); E03.9 Hypothyroidism, unspecified; I48.20 Chronic atrial fibrillation, unspecified; E11.65 Type 2 diabetes mellitus with hyperglycemia; Z79.899 Other long term (current) drug therapy
CPT/HCPCS: 36415; 80048; 80061; 80162; 82947; 83036; 84443

== ENCOUNTER 2023-03-06 14:46 | Outpatient (REF) | payer OTHER, SELFPAY ==
[2023-03-06 16:36] LABS: Hematocrit 43.8 % (37.0-47.0); Mean Corpuscular Hemoglobin 27.8 pg (27.0-33.0); Mean Corpuscular Volume 86.9 fL (80.0-98.0); Platelet Count 285 X10*3/uL (160-400); Red Blood Count 5.04 X10*6/uL (4.20-5.50); Red Cell Distribution Width 14.4 % (11.0-16.0); White Blood Count 9.2 X10*3/uL (4.8-10.8)
[2023-03-06 16:36] LABS: Appearance Urine Turbid; Color Urine Yellow; Glucose Urine UA Negative (Negative); Leukocyte Esterase Urine Moderate (2+) (Negative); Nitrite Urine Negative (Negative); Specific Gravity - Urine 1.015 (1.005-1.025); UMIC TRIGGER UACC YES; Urine Blood Large (3+) (Negative); Urine Ketones Negative (Negative); Urine Protein 30 (1+) mg/dL (Neg-Trace)
[2023-03-06 16:44] LABS: Alanine Aminotransferase 10 U/L (0-31); Albumin Level 3.7 g/dL (3.5-5.0); Alkaline Phosphatase 43 U/L (39-117); Aspartate Amino Transferase 19 U/L (5-31); Bilirubin Direct 0.3 mg/dL (0.0-0.5); Bilirubin Total 1.1 mg/dL (0.0-1.0)
[2023-03-06 16:48] LABS: Bacteria Urine None Seen (None Seen); Hyaline Casts Urine 0-2 /LPF (0-2); UACC Culture Trigger YES; WBC Urine 21-50 /HPF (0-5)
== END 2023-03-06 14:47 | disposition home or self-care (01) ==
LOC: HO.HMGCLDS 14:46
PROVIDERS: Absent Provider Internal Medicine; PCP Internal Medicine; Visit Provider Internal Medicine
DX: I10 Essential (primary) hypertension (principal); N39.0 Urinary tract infection, site not specified
CPT/HCPCS: 36415; 80076; 81001; 85027; 87086

== ENCOUNTER 2023-03-13 10:22 | Outpatient (REF) | payer OTHER, SELFPAY ==
[2023-03-13 12:32] LABS: Anion Gap 13 (12-20); Blood Urea Nitrogen 29 mg/dL (9-16); Calcium 9.6 mg/dL (8.4-10.2); Carbon Dioxide 26 mmol/L (22-29); Chloride 109 mmol/L (96-108); Estimated Glomerular Filt Rate 34; Glucose Random 106 mg/dL (60-115); Potassium 4.6 mmol/L (3.3-5.1); Sodium 143 mmol/L (135-145)
== END 2023-03-13 10:23 | disposition home or self-care (01) ==
LOC: HO.HMGCLDS 10:22
PROVIDERS: Absent Provider Internal Medicine Cardiovascular Disease; PCP Internal Medicine; Visit Provider Internal Medicine
DX: I42.9 Cardiomyopathy, unspecified (principal); N28.9 Disorder of kidney and ureter, unspecified
CPT/HCPCS: 36415; 80048

== ENCOUNTER 2023-04-08 11:14 | Outpatient (REF) | payer OTHER, SELFPAY ==
--- NOTE | ~2023-04-08 | MM_ITS ---
EXAMINATION: MM SCREENING DIGITAL BREAST TOMOSYNTHESIS, BILATERAL CLINICAL INFORMATION: Screening. Asymptomatic. The lifetime risk of breast cancer based on the Tyrer-Cuzick Model is 4%. COMPARISON: Outside mammography: 05/05/2019 ([facility]) TECHNIQUE: Digital breast tomosynthesis is performed in both the craniocaudal and mediolateral oblique views along with computer-aided detection (CAD). Synthesized 2D images are generated from the tomosynthesis. FINDINGS: There are scattered areas of fibroglandular density (ACR BI-RADS breast composition Category b). There are no significant masses, abnormal calcifications, or other abnormalities. Parenchymal pattern is similar to prior outside exam. There is no developing density or architectural abnormality. The axilla and skin contours are unremarkable. No significant changes. MM/MM tomosynthesis screening BI IMPRESSION: No mammographic evidence of malignancy. ASSESSMENT: BI-RADS 1: Negative RECOMMENDATION: Routine annual mammography screening. This patient's information was entered into a reminder system with a target due date for their next mammogram.
== END 2023-04-08 11:15 | disposition home or self-care (01) ==
LOC: HO.MAMMO 11:14
PROVIDERS: PCP Internal Medicine; Visit Provider Internal Medicine
DX: Z12.31 Encounter for screening mammogram for malignant neoplasm of breast (principal)
CPT/HCPCS: 77063; 77067

== ENCOUNTER → 2023-05-21 07:51 | Outpatient (REF) | payer OTHER, SELFPAY | LOC: HO.CARD 07:51 | PROVIDERS: PCP Internal Medicine; Visit Provider Internal Medicine Cardiovascular Disease | DX: I50.9 Heart failure, unspecified (principal) | CPT/HCPCS: 93306 ==

== ENCOUNTER 2023-06-02 13:40 | Outpatient (AMB) | payer OTHER, SELFPAY ==
[2023-06-02 13:46] VITALS: BP 118/72; PULSE 84; BMI 31.9
--- NOTE | 2023-06-02 13:46 | MHC.OFFVIS ---
Intake Vital Signs 06/02/23 13:46 Height 5 ft 9 in Weight 216 lb 0.848 oz BMI 31.9 BP 118/72 Blood Pressure Location Lt brachial Position Sitting Pulse 84 Intake Visit Reasons: 6 mth f/up echo Intake Note: 6 month follow-up feeling Virtual Recruiter Required: No Allergies onion [ONIONS] Allergy (Mild, Verified 04/28/23 13:57) ITCHING,HIVES Medication List - Last Reconciled 06/02/23 by Abel Lopez MD apixaban (Eliquis) 5 mg PO BID 90 days atorvastatin 40 mg PO DAILY betamethasone valerate 0.1% appl topical 2 times a day; blood sugar diagnostic (FreeStyle Test strips) To check blood sugars twice a day carvedilol 3.125 mg PO BID digoxin 125 mcg PO DAILY fenofibrate 160 mg PO DAILY furosemide 20 mg PO DAILY lancets (FreeStyle Lancets) To check blood sugars twice a day levothyroxine 125 mcg PO QAM 90 days lorazepam 1 mg PO BEDTIME PRN metformin 1,000 mg PO BID valsartan 40 mg PO QPM HPI HPI Comments History of Present Illness Details Tyra comes for follow-up. Recently she had elevated creatinine add digoxin and Lasix was discontinued. Since then her creatinine is improved again. She notices occasionally elevated heart rate when she noticed fast heart rate. Otherwise she denies any worsening symptoms of heart failure. No worsening leg edema, weight gain, orthopnea, PND. Denies lightheadedness, syncope. Denies bleeding issues or neurologic events. No exertional chest pain. Recent echocardiogram showed LVEF of 45% with mildly dilated ascending aorta and severely dilated left atrium without major valvular abnormality. [facility] Medical History Atrial fibrillation Cardiomyopathy Heart failure History of cardioversion Hyperlipidemia Hypertension Hypothyroidism Obesity Sleep apnea Surgical History H/O colonoscopy History of cataract surgery History of esophagogastroduodenoscopy (EGD) History of incisional hernia repair Hx of hernia repair Family History Family/Other Medical history unknown Social History Housing: House Alcohol intake: current Alcohol intake frequency: holidays/special occasions only Patient Tobacco Use Status: Former Tobacco user Tobacco use type: Cigarette e-Cigarette/Vaping Use: Never Used Second Hand Smoke Exposure: No service: No Current occupational status: retired Cognitive needs: Yes (cane/ transport chair) Hearing needs: No Vision needs: Yes (reading glasses) Review of Systems Const Denies chills, Denies fatigue, Denies fever(s), Denies frequent falls, Denies weakness, Denies weight gain and Denies weight loss ENT Denies dizziness Card Denies chest pain, Denies leg edema, Denies lightheadedness, Denies palpitations, Denies dyspnea, Denies dyspnea on exertion, Denies orthopnea and Denies other (loss of consciousness) Resp Denies cough, Denies dyspnea and Denies dyspnea on exertion GI Denies hematochezia and Denies change in stool character Musc Denies abnormal gait, Denies muscle weakness, Denies numbness, Denies radiating pain into limb and Denies tingling Neuro Denies abnormal gait, Denies dizziness, Denies frequent falls, Denies numbness, Denies tingling and Denies weakness Endo Denies fatigue and Denies palpitations Physical Exam Vital Signs: Last Vital Signs Pulse 84 06/02/23 13:46 BP 118/72 06/02/23 13:46 BMI result Body Mass Index 31.9 Const General: cooperative, comfortable, no acute distress, alert, awake and well groomed Nutritional Appearance: obese Orientation/consciousness: patient oriented x3 Limitations: ambulation with walker Neck Neck: Yes trachea midline, Yes supple and Yes no JVD Resp Effort & Inspection: normal respiratory effort Auscultation: clear to auscultation bilaterally Cardio Jugular venous distension: no JVD Rhythm: abnormal rhythm irregularly irregular Heart sounds: S1 normal heart sound present and S2 normal heart sound present GI Auscultation: normal bowel sounds Skin General skin exam: no rashes or lesions noted Neuro General: patient oriented x3 and no focal motor deficits Extrem General: Yes no clubbing, cyanosis or edema Psych Appearance: grossly normal Assessment & Plan Assessment & Plan (1) Atrial fibrillation: Code(s): I48.91 - Unspecified atrial fibrillation Plan: Chronic atrial fibrillation has failed rhythm control approach. She has significant left atrial enlargement unlikely to pursue rhythm control approach. Continue rate control. She is having intermittent symptoms of rapid heart rate after stopping digoxin. Whilst restart digoxin at 0.125 mg 3 times a week. Follow-up digoxin assay in 2 weeks along with BMP. Continue full oral anticoagulation, currently on Eliquis 5 mg b.i.d.. Renal function test should be pursued every couple months. (2) Cardiomyopathy: Comment: LVEF of 40-45% by echocardiogram, December 2020. Nonischemic most likely related to atrial fibrillation as well as untreated sleep apnea Code(s): I42.9 - Cardiomyopathy, unspecified Plan: Mild cardiomyopathy which has remained stable. No overt signs of heart failure. Can hold Lasix therapy at this point time. Continue rate control with atrial fibrillation. Continue neurohormonal modulation with carvedilol and valsartan therapy. Signs and symptoms of heart failure were discussed. Daily weight monitoring avoidance of salt loading was discussed. Diuretic as need be. Follow up in the clinic in 6 months time, sooner p.r.n.. Thank you for allowing me to partake in her care Orders: Orders Basic Metabolic Panel 2 Weeks I48.91 - Unspecified atrial fibrillation Digoxin 2 Weeks I48.20 - Chronic atrial fibrillation, unspecified, I48.91 - Unspecified atrial fibrillation Coding Level of Care Code Est Pt Level 4 (66274) Diagnoses Atrial fibrillation I48.91 Cardiomyopathy I42.9
== END 2023-06-02 14:05 | disposition home or self-care (01) ==
PROVIDERS: Visit Provider Internal Medicine Cardiovascular Disease
DX: I48.91 Unspecified atrial fibrillation (principal); I42.9 Cardiomyopathy, unspecified
CPT/HCPCS: 99214

== ENCOUNTER → 2023-06-02 13:40 | Outpatient (BNVA) | payer OTHER, SELFPAY | PROVIDERS: Visit Provider Internal Medicine Cardiovascular Disease | DX: I48.91 Unspecified atrial fibrillation (principal); I42.9 Cardiomyopathy, unspecified | CPT/HCPCS: 99212 ==

== ENCOUNTER 2023-06-17 09:08 | Outpatient (REF) | payer OTHER, SELFPAY ==
[2023-06-17 11:57] LABS: Estimated Average Glucose 117 mg/dL; Hemoglobin A1c % 5.7 %
[2023-06-17 12:04] LABS: Glucose Fasting 100 mg/dL (60-99)
[2023-06-17 12:26] LABS: Creatinine Urine 83.83 mg/dL; Microalbum/Creatinine Ratio Ur 201.5 ug/mg cr
== END 2023-06-17 09:09 | disposition home or self-care (01) ==
LOC: HO.HMGCLDS 09:08
PROVIDERS: Absent Provider Internal Medicine Cardiovascular Disease; PCP Internal Medicine; Visit Provider Internal Medicine
DX: E11.69 Type 2 diabetes mellitus with other specified complication (principal); E11.65 Type 2 diabetes mellitus with hyperglycemia; E66.01 Morbid (severe) obesity due to excess calories
CPT/HCPCS: 36415; 82043; 82947; 83036

== ENCOUNTER 2023-06-18 09:42 | Outpatient (REF) | payer OTHER, SELFPAY ==
[2023-06-18 13:43] LABS: Basophils Percent Auto 0.6 % (0-2); Eosinophils Absolute Auto 0.2 X10*3/uL (0.0-0.4); Eosinophils Percent Auto 3.1 % (0-4); Hematocrit 46.9 % (37.0-47.0); Hemoglobin 15.1 g/dl (12.0-16.0); Imm Gran Abs Auto 0.02 X10*3/uL (0.00-0.03); Imm Gran Pct Auto 0.3 % (0.0-0.4); Lymphocytes Absolute Auto 2.3 X10*3/uL (1.2-4.9); Lymphocytes Percent Auto 32.2 % (20-40); MANUAL DIFF FLAG NO; Mean Corpuscular HGB Conc 32.2 g/dl (31.0-35.0); Mean Corpuscular Hemoglobin 27.7 pg (27.0-33.0); Mean Corpuscular Volume 86.1 fL (80.0-98.0); Mean Platelet Volume 10.3 fL (9.4-12.3); Monocytes Absolute Auto 0.5 X10*3/uL (0.1-1.2); Monocytes Percent Auto 7.2 % (2-11); Neutrophils Percent Auto 56.6 % (45-73); Platelet Count 270 X10*3/uL (160-400); Red Blood Count 5.45 X10*6/uL (4.20-5.50); White Blood Count 7.1 X10*3/uL (4.8-10.8)
[2023-06-18 13:44] LABS: Appearance Urine Cloudy; Color Urine Yellow; Glucose Urine UA Negative (Negative); Leukocyte Esterase Urine Moderate (2+) (Negative); Nitrite Urine Negative (Negative); PH 5.5 (5.0-9.0); UMIC TRIGGER UA YES; Urine Blood Trace (Negative); Urine Ketones Negative (Negative); Urine Protein Negative (Neg-Trace)
[2023-06-18 14:04] LABS: Bacteria Urine None Seen (None Seen); Hyaline Casts Urine 0-2 /LPF (0-2); RBC Urine 0-2 /HPF (0-2); Squamous Epithelial Cell Urine 0-2 /HPF (0-2)
[2023-06-18 14:11] LABS: Anion Gap 18 (12-20); Blood Urea Nitrogen 32 mg/dL (9-16); Carbon Dioxide 20 mmol/L (22-29); Chloride 108 mmol/L (96-108); Estimated Glomerular Filt Rate 43; Glucose Random 104 mg/dL (60-115); Potassium 4.6 mmol/L (3.3-5.1); Sodium 141 mmol/L (135-145)
[2023-06-18 14:44] LABS: Microalbum/Creatinine Ratio Ur 33.3 ug/mg cr; Total Protein Urine Random 10 mg/dL (<12)
[2023-06-18 14:46] LABS: Digoxin 0.3 ng/mL (0.8-2.0)
[2023-06-18 14:57] LABS: Albumin Level 3.8 g/dL (3.5-5.0); Anion Gap 16 (12-20); Blood Urea Nitrogen 33 mg/dL (9-16); Calcium 9.9 mg/dL (8.4-10.2); Carbon Dioxide 21 mmol/L (22-29); Chloride 109 mmol/L (96-108); Estimated Glomerular Filt Rate 41; Magnesium 1.5 mg/dL (1.6-2.6); Phosphorus 3.9 mg/dL (2.7-4.5); Potassium 4.5 mmol/L (3.3-5.1); Sodium 141 mmol/L (135-145)
[2023-06-18 15:00] LABS: Vitamin D 25-OH Total 62.6 ng/mL (>30)
[2023-06-19 05:24] LABS: HBS Num1 0.03 mIU/mL (0-7.99); HBc Num1 0.11 S/CO (0.00-0.79); HBsAGNum1 0.32 S/CO (0.00-0.99); Hepatitis B Core Antibody Nonreactive (Nonreactive); Hepatitis B Surface Antigen Negative (Negative); ~HepC Num1 0.05 S/CO (0.00-0.79); ~Hepatitis B Surface Antibody NONREACTIVE (Nonreactive); ~Hepatitis C Antibody Nonreactive (Nonreactive)
[2023-06-22 10:59] LABS: Complement C3 61 mg/dL (83-193)
[2023-06-22 11:44] LABS: Prot Elec - Albumin 3.7 g/dL (3.8-4.8); Prot Elec - Alpha1 0.3 g/dL (0.2-0.3); Prot Elec - Alpha2 0.6 g/dL (0.5-0.9); Prot Elec - Beta 1 0.5 g/dL (0.4-0.6); Prot Elec - Beta 2 0.3 g/dL (0.2-0.5); Prot Elec - Gamma 0.7 g/dL (0.8-1.7); Prot Elec - Total Protein 6.1 g/dL (6.1-8.1)
[2023-06-22 12:42] LABS: Calcium (PTHI) 9.6 mg/dL (8.6-10.4); PTHI 46 pg/mL (16-77)
[2023-06-24 10:49] LABS: Anti Nuclear Antibody Screen NEGATIVE (NEGATIVE)
[2023-06-24 16:13] LABS: Kappa, Serum 199 mg/dL (176-443); Kappa/Lambda Ratio, Serum 2.16 (1.29-2.55); Lambda, Serum 92 mg/dL (91-240)
== END 2023-06-18 09:43 | disposition home or self-care (01) ==
LOC: HO.HMGCLDS 09:42
PROVIDERS: Internal Medicine Cardiovascular Disease; PCP Internal Medicine; Visit Provider Internal Medicine Nephrology
DX: I48.20 Chronic atrial fibrillation, unspecified (principal); E11.22 Type 2 diabetes mellitus with diabetic chronic kidney disease; N17.9 Acute kidney failure, unspecified; N18.32 Chronic kidney disease, stage 3b; R82.90 Unspecified abnormal findings in urine
CPT/HCPCS: 36415; 80048; 80051; 80162; 81001; 82040; 82043; 82306; 82310; 82565; 83735; 83883; 83970; 84100; 84156; 84165; 84520; 85025; 86038; 86160; 86704; 86706; 86803; 87086; 87340

== ENCOUNTER 2023-10-01 14:11 | Outpatient (AMB) | payer OTHER, SELFPAY ==
--- NOTE | 2023-10-01 14:15 | MHC.PC.OV ---
Vital Signs 10/01/23 14:17 Height 5 ft 9 in Weight 215 lb 2 oz BMI 31.8 BP 110/70 Blood Pressure Location Lt brachial Position Sitting Pulse 68 Pulse Source Pulse Oximeter Pulse Oximetry (%) 99 Oxygen Delivery Method Room Air Intake Visit Reasons: 6 MONTH F/U Intake Note: Patient is here to follow up on DM, HTN, Hyperlipidemia. 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: No Registered Pharmacy Technician: Not Required per policy Accompanied by: Self / Same As Patient Allergies onion [ONIONS] Allergy (Mild, Verified 10/01/23 14:51) ITCHING,HIVES Medication List - Last Reconciled 10/01/23 by Indra Heaton MD apixaban (Eliquis) 5 mg PO BID 90 days atorvastatin 40 mg PO DAILY betamethasone valerate 0.1% appl topical 2 times a day; blood sugar diagnostic ([employer]one Arts LaboratoriesStyle Test strips) To check blood sugars twice a day carvedilol 3.125 mg PO BID digoxin 125 mcg PO DAILY fenofibrate 160 mg PO DAILY furosemide 20 mg PO DAILY lancets (FreeStyle Lancets) To check blood sugars twice a day levothyroxine 125 mcg PO QAM 90 days lorazepam 1 mg PO BEDTIME PRN metformin 1,000 mg PO BID valsartan 40 mg PO QPM Tobacco use date assessed: 10/01/23 Fall risk assessment: No Falls in past year Last assessed Fall Risk: 10/01/23 Dental Screening Dental Screen Date: 10/01/23 Did you have a dental visit in the last 12 months?: No Did you have a dental problem in the last 6 months where you did not have access to dental care?: No Was dental information given to patient?: Patient has dentist HPI 6 MONTH F/U HPI Details 68-year-old female presents to the office to discuss her chronic medical conditions. Patient is at baseline state of health. She walked into the exam room using a walker. Able to function and do her activities of daily living independently. Compliant with medications. [facility] Medical History Sleep apnea History of cardioversion Obesity Hypertension Cardiomyopathy Hyperlipidemia Hypothyroidism Atrial fibrillation Heart failure Surgical History History of cataract surgery Hx of hernia repair History of incisional hernia repair History of esophagogastroduodenoscopy (EGD) H/O colonoscopy Family History Family/Other Medical history unknown Social History Housing: House Alcohol intake: current Alcohol intake frequency: holidays/special occasions only Patient Tobacco Use Status: Former Tobacco user Tobacco use type: Cigarette e-Cigarette/Vaping Use: Never Used Second Hand Smoke Exposure: No service: No Current occupational status: retired Cognitive needs: Yes (cane/ transport chair) Hearing needs: No Vision needs: Yes (reading glasses) Questionnaire PHQ-9 Over the last 2 weeks, how often have you been bothered by any of the following problems? Depression Screening Interpretation: Negative Depression Screening Done: Yes Source: Developed by Drs. Harpreet Quiñonez, Rochelle Domingo, Valentino Santana and colleagues, with an educational andrea from [employer]. Thrive Questionnaire Date Thrive assessed: 04/28/23 Currently or been in a relationship where the following occur: no concerns reported KRISTOFER-7 AMB Questionnaire KRISTOFER-7 Date KRISTOFER - 7 assessed: 04/28/23 Source: Developed by Drs. Harpreet Quiñonez, Rochelle Domingo, Valentino Santana and colleagues, with an educational andrea from [employer]. Physical exam (Primary Care) Vital Signs: Last Vital Signs Pulse 68 10/01/23 14:17 BP 110/70 10/01/23 14:17 Pulse Ox 99 10/01/23 14:17 Oxygen Delivery Method Room Air 10/01/23 14:17 Care Plan Goal for BP management: Blood pressure is stable. Continue current medications. BMI result Body Mass Index 31.8 BMI Assessment/Plan discussion: High (1 lb per week weight loss suggested.) BMI High, discussed plan: lifestyle, weight reduction and dietary Tobacco/Smoking Status: Tobacco use Status Tobacco use date assessed 10/01/23 10/01/23 14:25 Patient Tobacco Use Status Former Tobacco user 10/01/23 14:25 Tobacco use type Cigarette 10/01/23 14:25 e-Cigarette/Vaping Use Never Used 10/01/23 14:25 Depression Screening Interpretation: Negative Thrive Assessment: Date of Thrive Assessment Date Thrive assessed 04/28/23 10/01/23 14:25 Currently or been in a relationship where the following occur: no concerns reported Advance Care Planning discussion: Exists, not on file Date of discussion: 10/01/23 Who was present: Patient Const General: cooperative and healthy appearing Nutritional Appearance: well nourished Orientation/consciousness: patient oriented x3 Limitations: no limitations HENMT Head: Yes normal to inspection Eyes General: appearance normal, both eyes and all related structures Neck Neck: Yes normal visual inspection Chest Chest palpation & inspection: normal palpation of entire chest wall Resp Effort & Inspection: normal respiratory effort Neuro General: patient oriented x3 Results AMB Hemoglobin A1c AMB Hemoglobin A1c 5.7 % Last Edit by ROCIO Schroeder on 10/01/23 14:29 Results Reviewed Results Reviewed: Laboratory Last Values Hgb A1c (Clinic) 5.7 % (4.0-6.0) 10/01/23 14:15 Assessment and Plan Assessment & Plan (1) Type 2 diabetes mellitus with obesity: Code(s): E11.69 - Type 2 diabetes mellitus with other specified complication; E66.9 - Obesity, unspecified Plan A1c is in range. Continue medications at same dosage. Compliant with diet and exercise suggested. Up-to-date on all her screening procedures and immunizations. Orders: Orders AMB Hemoglobin A1c Today E11.69 - Type 2 diabetes mellitus with other specified complication, E66.9 - Obesity, unspecified Coding Level of Care Code Est Pt Level 4 (01627) Diagnoses Type 2 diabetes mellitus with obesity E11.69; E66.9 Additional Codes Vital Signs *Quality* - Advance Care Planning discussion: Exists, not on file ([id number])
[2023-10-01 14:17] VITALS: BP 110/70; PULSE 68; O2SAT 99; BMI 31.8
== END 2023-10-01 14:51 | disposition home or self-care (01) ==
PROVIDERS: Visit Provider Internal Medicine
DX: E11.69 Type 2 diabetes mellitus with other specified complication (principal); E66.9 Obesity, unspecified; Z68.31 Body mass index [BMI] 31.0-31.9, adult; Z00.00 Encounter for general adult medical examination without abnormal findings
CPT/HCPCS: 1123F; 83036; 99214

== ENCOUNTER 2023-12-10 11:06 | Outpatient (AMB) | payer OTHER, SELFPAY ==
[2023-12-10 11:22] VITALS: BP 124/80; PULSE 74; BMI 31.3
--- NOTE | 2023-12-10 11:22 | MHC.OFFVIS ---
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: No Allergies onion [ONIONS] Allergy (Mild, Verified 10/01/23 14:51) ITCHING,HIVES Medication List - Last Reconciled 12/10/23 by Abel Lopez MD apixaban (Eliquis) 5 mg PO BID 90 days atorvastatin 40 mg PO DAILY betamethasone valerate 0.1% appl topical 2 times a day; blood sugar diagnostic (FreeStyle Lite Strips) test twice per day blood sugar diagnostic (FreeStyle Test strips) To check blood sugars twice a day carvedilol 3.125 mg PO BID digoxin 125 mcg PO DAILY fenofibrate 160 mg PO DAILY furosemide 20 mg PO DAILY L.ac,bul,par,rha-B.ani,alejandrina-inu 10 billion cell -100 mg (Probitoic Digestive Support (6 strain)) caps PO lancets (FreeStyle Lancets) To check blood sugars twice a day levothyroxine 125 mcg PO QAM 90 days lorazepam 1 mg PO BEDTIME PRN metformin 1,000 mg PO BID multivitamin (Daily Multi-Vitamin tablet) 1 tab PO DAILY valsartan 40 mg PO QPM HPI HPI Comments History of Present Illness Details Sunitha comes for follow-up. She has been doing well. She says she takes her furosemide seldom. Otherwise she has been doing well. No worsening shortness of breath, orthopnea, PND, leg edema. No abdominal distension. Denies any prolonged fast heart rate or irregular heartbeat. No lightheadedness, syncope. Takes all her medications. No bleeding issues or neurologic events [facility] Medical History Sleep apnea History of cardioversion Obesity Hypertension Cardiomyopathy Hyperlipidemia Hypothyroidism Atrial fibrillation Heart failure Surgical History History of cataract surgery Hx of hernia repair History of incisional hernia repair History of esophagogastroduodenoscopy (EGD) H/O colonoscopy Family History Family/Other Medical history unknown Social History Housing: House Alcohol intake: current Alcohol intake frequency: holidays/special occasions only Patient Tobacco Use Status: Former Tobacco user Tobacco use type: Cigarette e-Cigarette/Vaping Use: Never Used Second Hand Smoke Exposure: No service: No Current occupational status: retired Cognitive needs: Yes (cane/ transport chair) Hearing needs: No Vision needs: Yes (reading glasses) Review of Systems Const Denies chills, Denies fatigue, Denies fever(s), Denies frequent falls, Denies weakness, Denies weight gain and Denies weight loss ENT Denies dizziness Card Denies chest pain, Denies leg edema, Denies lightheadedness, Denies palpitations, Denies dyspnea, Denies dyspnea on exertion, Denies orthopnea and Denies other (loss of consciousness) Resp Denies cough, Denies dyspnea and Denies dyspnea on exertion GI Denies hematochezia and Denies change in stool character Musc Denies abnormal gait, Denies muscle weakness, Denies numbness, Denies radiating pain into limb and Denies tingling Neuro Denies abnormal gait, Denies dizziness, Denies frequent falls, Denies numbness, Denies tingling and Denies weakness Endo Denies fatigue and Denies palpitations Physical Exam Vital Signs: Last Vital Signs Pulse 74 12/10/23 11:22 BP 124/80 12/10/23 11:22 BMI result Body Mass Index 31.3 Const General: cooperative, comfortable, no acute distress, alert, awake and well groomed Nutritional Appearance: obese Orientation/consciousness: patient oriented x3 Limitations: ambulation with walker Neck Neck: Yes trachea midline, Yes supple and Yes no JVD Resp Effort & Inspection: normal respiratory effort Auscultation: clear to auscultation bilaterally Cardio Jugular venous distension: no JVD Rhythm: abnormal rhythm irregularly irregular Heart sounds: S1 normal heart sound present and S2 normal heart sound present GI Auscultation: normal bowel sounds Skin General skin exam: no rashes or lesions noted Neuro General: patient oriented x3 and no focal motor deficits Extrem General: Yes no clubbing, cyanosis or edema Psych Appearance: grossly normal Office Procedures EKG Details: EKG shows atrial fibrillation with PVC with no significant ST T wave changes with controlled rate [id number], Complete Assessment & Plan Assessment & Plan (1) Atrial fibrillation: Code(s): I48.91 - Unspecified atrial fibrillation Plan: Chronic rate control atrial fibrillation which has helped her. Has failed rhythm control approach in the past. However with aggressive rate control she is done very well. Continue current rate control with carvedilol and digoxin. Digoxin assay should be performed every 6 months. This was discussed with her. Continue full oral anticoagulation, currently on Eliquis 5 mg b.i.d.. Semi annual renal function test should be pursued. (2) Cardiomyopathy: Comment: LVEF of 40-45% by echocardiogram, December 2020. Nonischemic most likely related to atrial fibrillation as well as untreated sleep apnea Code(s): I42.9 - Cardiomyopathy, unspecified Plan: Mild cardiomyopathy which has remained stable. Has done well without any progressive heart failure syndrome at this point time. LVEF has stabilized with rate control as well as current neurohormonal modulation. She has no signs or symptoms of heart failure. Continue daily weight monitoring avoidance of salt loading and using Lasix on a p.r.n. basis. Importance of neurohormonal modulation was discussed advised to call me with worsening symptoms. Follow-up echocardiogram in 6 months time. (3) Enlarged thoracic aorta: Code(s): I77.89 - Other specified disorders of arteries and arterioles Plan: Mildly enlarged thoracic aorta, does not require any surgical intervention at this point time. Continue aggressive blood pressure control which is currently well optimized. Also on statin therapy with target goal LDL less than 100 mg/dL being pursue through office. Continue aggressive management of diabetes. Follow-up echocardiogram 6 months time. Will follow up in the clinic in 6 months time, sooner p.r.n.. Thank you for allowing me to partake in the care Coding Level of Care Code Est Pt Level 4 (41290) Diagnoses Atrial fibrillation I48.91 Cardiomyopathy I42.9 Enlarged thoracic aorta I77.89 CPT Codes EKG - CPT: 33409-[id number], Complete ([id number])
== END 2023-12-10 11:46 | disposition home or self-care (01) ==
PROVIDERS: PCP Internal Medicine; Visit Provider Internal Medicine Cardiovascular Disease
DX: I48.91 Unspecified atrial fibrillation (principal); I42.9 Cardiomyopathy, unspecified; I77.89 Other specified disorders of arteries and arterioles
CPT/HCPCS: 93010; 99214

== ENCOUNTER → 2023-12-10 11:06 | Outpatient (BNVA) | payer OTHER, SELFPAY | PROVIDERS: PCP Internal Medicine; Visit Provider Internal Medicine Cardiovascular Disease | DX: I48.91 Unspecified atrial fibrillation (principal); I42.9 Cardiomyopathy, unspecified; I77.89 Other specified disorders of arteries and arterioles | CPT/HCPCS: 93005; 99212 ==

== ENCOUNTER 2024-01-26 12:22 | Outpatient (AMB) | payer OTHER, SELFPAY ==
--- NOTE | 2024-01-26 12:28 | A.OFFVIS_ITS ---
Intake Vital Signs 01/26/24 12:29 Height 5 ft 9 in Weight 216 lb 14.958 oz BMI 32.0 Intake Visit Reasons: Colonoscopy screening Intake Note: Pt presents to the office today for a colonoscopy screening. Pt states she is feeling well and denies any GI concerns at this time. Allergies onion [ONIONS] Allergy (Mild, Verified 01/26/24 12:31) ITCHING,HIVES Medication List - Last Reconciled 01/26/24 by Adilia Villegas PA-C apixaban (Eliquis) 5 mg PO BID 90 days atorvastatin 40 mg PO DAILY betamethasone valerate 0.1% appl topical 2 times a day; blood sugar diagnostic (FreeStyle Lite Strips) test twice per day blood sugar diagnostic (FreeStyle Test strips) To check blood sugars twice a day carvedilol 3.125 mg PO BID digoxin 125 mcg PO DAILY fenofibrate 160 mg PO DAILY furosemide 20 mg PO DAILY L.ac,bul,par,rha-B.ani,alejandrina-inu 10 billion cell -100 mg (Probitoic Digestive Support (6 strain)) caps PO lancets (FreeStyle Lancets) To check blood sugars twice a day levothyroxine 125 mcg PO QAM 90 days lorazepam 1 mg PO BEDTIME PRN metformin 1,000 mg PO BID multivitamin (Daily Multi-Vitamin tablet) 1 tab PO DAILY valsartan 40 mg PO QPM HPI HPI Comments History of Present Illness Details A 68 y/o female personal history of colon polyps referred for colonoscopy- last colonoscopy 2017 Dr. Renee no polyps at this time, previous colonoscopies with Dr. Varghese she has history of polyps History of surgery for hiatal hernia back in 05 10- Should recovered well EGD-2018- ulcer- treated, healed, completely resolved- no acid reflux, Constipation maintain-HFD is able to well managed Follows up with Dr. Lopez-for AFib has seen him recent continues with Eliquis- she has been taking for about the past 4 years She has no nausea, vomiting, acid reflux, hematemesis, hematochezia, abdominal pain fever She uses a rolling walker when she goes out however it home she is able to ambulate without PFSH Medical History Sleep apnea History of cardioversion Obesity Hypertension Cardiomyopathy Hyperlipidemia Hypothyroidism Atrial fibrillation Heart failure Surgical History History of cataract surgery Hx of hernia repair History of incisional hernia repair History of esophagogastroduodenoscopy (EGD) H/O colonoscopy Family History Family/Other Medical history unknown Social History Housing: House Alcohol intake: current Alcohol intake frequency: holidays/special occasions only Patient Tobacco Use Status: Former Tobacco user Tobacco use type: Cigarette e-Cigarette/Vaping Use: Never Used Second Hand Smoke Exposure: No service: No Current occupational status: retired Cognitive needs: Yes (cane/ transport chair) Hearing needs: No Vision needs: Yes (reading glasses) Review of Systems Const All systems reviewed & are unremarkable except as noted in HPI and below Card Denies chest pain, Denies rapid heart rate and Denies dyspnea Resp Denies dyspnea GI Denies abdominal pain, Reports constipation, Denies dyspepsia, Denies heartburn, Denies diarrhea, Denies nausea and Denies vomiting Physical Exam Vital Signs: BMI result Body Mass Index 32.0 Const General: cooperative, healthy appearing and comfortable Orientation/consciousness: patient oriented x3 Limitations: ambulation with walker Eyes Sclerae: sclerae normal Resp Effort & Inspection: normal respiratory effort and able to speak in complete sentences Auscultation: clear to auscultation bilaterally, no rales, no rhonchi and no wheezes Cardio Rate: regular rate Rhythm: regular rhythm Heart sounds: S1 normal heart sound present and S2 normal heart sound present GI Palpation (GI): Soft to palpation and nontender Auscultation: normal bowel sounds Skin General skin exam: no rashes or lesions noted Neuro General: patient oriented x3 Extrem General: Yes full ROM Psych Appearance: well kempt Mental Status: mental status grossly normal Speech and movement: Normal speech and movement present and Clear speech present Affect: normal affect Attitude: cooperative Thought process: Normal thought process present Thought content: Normal thought content present Assessment & Plan Assessment & Plan (1) History of colon polyps: Comment: Previous colon polyps, last colonoscopy 2018 no polyps Code(s): Z86.010 - Personal history of colonic polyps Plan: Polyp surveillance (2) Atrial fibrillation: Comment: Follows with Dr. 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 Plan: Typically discontinue 2 days prior to procedure Plan Colonoscopy- anesthesia consult ( pt req, as well) Mg prep DC Eliquis 2 days prior to procedure Omit metformin day before procedure No diabetes medications morning of procedure Orders: Orders Colonoscopy - GI Use Only Today I48.91 - Unspecified atrial fibrillation, Z79.01 - senior living (current) use of anticoagulants, Z86.010 - Personal history of colonic polyps Medications: New bisacodyl (Dulcolax (bisacodyl)) Day before procedure @ 12 noon Take 4 tablets by mouth followed by large glass of water 20 mg (4 x 5 mg) PO ONCE 1 day PRN 4 tabs 0RF colonoscopy prep Z12.11 - Encounter for screening for malignant neoplasm of colon polyethylene glycol 3350 (Miralax) Take as directed by mouth the day before your procedure. 238 grams PO ONCE 1 day PRN 238 grams 0RF laxative effect Patient Instructions: Very pleasant , alert, 68-year-old female AFIB- personal history colon polyps anticoagulation therapy Polyp surveillance colonoscopy MiraLax Gatorade prep reviewed literature given DC Eliquis 2 days prior to procedure-anticipation of polypectomy Omit metformin day before procedure No diabetes medications morning of procedure No major barriers to understanding were identified Encouraged to call with any questions or concerns-as well any change in health status Coding Level of Care Code New Pt Level 3 (41787) Diagnoses History of colon polyps Z86.010 Atrial fibrillation I48.91 Anticoagulant long-term use Z79.01 Time Spent (min) 30
[2024-01-26 12:29] VITALS: BMI 32.0
== END 2024-01-26 13:02 | disposition home or self-care (01) ==
PROVIDERS: PCP Internal Medicine; Referring Provider Internal Medicine; Visit Provider Physician Assistant
DX: Z01.818 Encounter for other preprocedural examination (principal); Z12.11 Encounter for screening for malignant neoplasm of colon; Z86.010 Personal history of colon polyps
CPT/HCPCS: S0285

== ENCOUNTER → 2024-01-26 12:22 | Outpatient (BNVA) | payer OTHER, SELFPAY | PROVIDERS: PCP Internal Medicine; Visit Provider Physician Assistant ==

== ENCOUNTER 2024-03-31 14:03 | Outpatient (AMB) | payer OTHER, SELFPAY ==
--- NOTE | 2024-03-31 14:31 | A.OFFPC_ITS ---
Vital Signs 03/31/24 14:33 Height 5 ft 9 in Weight 214 lb 8 oz BMI 31.7 BP 130/60 Blood Pressure Location Lt brachial Position Sitting Pulse 61 Pulse Source Pulse Oximeter Pulse Oximetry (%) 100 Oxygen Delivery Method Room Air Intake Visit Reasons: 6mth f/u Intake Note: Patient is here to follow up on DM, HTN, HLD,. 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 Medical Billing Representative: Not Required per policy Accompanied by: Self / Same As Patient Allergies onion [ONIONS] Allergy (Mild, Verified 03/31/24 15:05) ITCHING,HIVES Medication List - Last Reconciled 03/31/24 by Indra Heaton MD apixaban (Eliquis) 5 mg PO BID 90 days atorvastatin 40 mg PO DAILY betamethasone valerate 0.1% appl topical 2 times a day; bisacodyl (Dulcolax (bisacodyl)) 20 mg (4 x 5 mg) PO ONCE PRN 1 day blood sugar diagnostic (FreeStyle Lite Strips) test twice per day blood sugar diagnostic (FreeStyle Test strips) To check blood sugars twice a day carvedilol 3.125 mg PO BID digoxin 125 mcg PO DAILY fenofibrate 160 mg PO DAILY furosemide 20 mg PO DAILY L.ac,bul,par,rha-B.ani,alejandrina-inu 10 billion cell -100 mg (Probitoic Digestive Support (6 strain)) caps PO lancets (FreeStyle Lancets) To check blood sugars twice a day levothyroxine 125 mcg PO QAM 90 days lorazepam 1 mg PO BEDTIME PRN metformin 1,000 mg PO BID multivitamin (Daily Multi-Vitamin tablet) 1 tab PO DAILY polyethylene glycol 3350 (Miralax) 238 grams PO ONCE PRN 1 day valsartan 40 mg PO QPM Tobacco use date assessed: 03/31/24 Fall risk assessment: No Falls in past year Last assessed Fall Risk: 03/31/24 Dental Screening Dental Screen Date: 03/31/24 Did you have a dental visit in the last 12 months?: No Did you have a dental problem in the last 6 months where you did not have access to dental care?: No Was dental information given to patient?: No HPI 6mth f/u HPI Details 69-year-old female presents to the offic e to discuss her chronic medical conditions. Patient is compliant with medications and reporting no side effects. Able to function and do all activities of daily living. Patient does not drive. Able to do all the financial activities at home. Uses a walker to ambulate. [facility] Medical History Sleep apnea History of cardioversion Obesity Hypertension Cardiomyopathy Hyperlipidemia Hypothyroidism Atrial fibrillation Heart failure Surgical History History of cataract surgery Hx of hernia repair History of incisional hernia repair History of esophagogastroduodenoscopy (EGD) H/O colonoscopy Family History Family/Other Medical history unknown Social History Housing: House Alcohol intake: current Alcohol intake frequency: holidays/special occasions only Patient Tobacco Use Status: Former Tobacco user Tobacco use type: Cigarette e-Cigarette/Vaping Use: Never Used Second Hand Smoke Exposure: No service: No Current occupational status: retired Cognitive needs: Yes (cane/ transport chair) Hearing needs: No Vision needs: Yes (reading glasses) Questionnaire PHQ-9 Over the last 2 weeks, how often have you been bothered by any of the following problems? 1. Little interest or pleasure in doing things: not at all 2. Feeling down, depressed, or hopeless: not at all 3. Trouble falling or staying asleep, or sleeping too much: not at all 4. Feeling tired or having little energy: not at all 5. Poor appetite or overeating: not at all 6. Feeling bad about yourself - or that you are a failure or have let yourself or your family down: not at all 7. Trouble concentrating on things, such as reading the newspaper or watching television: not at all 8. Moving or speaking so slowly that other people could have noticed. Or the opposite - being so fidgety or restless that you have been moving around a lot more than usual: not at all 9. Thoughts that you would be better off or of hurting yourself in some way: not at all Total score: 0 Depression Screening Interpretation: Negative Depression Screening Done: Yes Source: Developed by Drs. Harpreet Quiñonez, Valentino Costa and colleagues, with an educational andrae from [employer]. Thrive Questionnaire Date Thrive assessed: 03/31/24 I am a: Patient What is your living situation today?: I have a steady place to live Within the past 12 months, did the food you bought not last and you didn't have the money to get more?: Never true Within the past 12 months, did you worry whether your food would run out before you got money to buy more?: Never true Do you have trouble paying for medicines?: No Do you have trouble getting transportation to medical appointments?: No Do you have trouble paying your heating and electricity bill?: No Do you have trouble taking care of your child, family member or friend?: No Do you have trouble with day-to-day activities such as bathing, preparing meals, shopping, managing finances, etc.?: No Are you currently unemployed and looking for a job?: No Are you interested in more education?: No Currently or been in a relationship where the following occur: no concerns reported THRIVE Score: 0 AUDIT C Alcohol Use Questionnaire (AUDIT-C) 1. How often do you have a drink containing alcohol?: Never Total Score: 0 KRISTOFER-7 AMB Questionnaire KRISTOFER-7 Date KRISTOFER - 7 assessed: 03/31/24 Feeling nervous, anxious, or on edge: 0 = Not at all Not being able to stop or control worryin = Not at all Worrying too much about different things: 0 = Not at all Trouble relaxin = Not at all Being so restless that it is hard to sit still: 0 = Not at all Becoming easily annoyed or irritable: 0 = Not at all Feeling afraid as if something awful might happen: 0 = Not at all Total KRISTOFER-7 score (0-4 normal; 5-9 mild; 10-14 moderate; 15-21 severe): 0 Source: Developed by Drs. Harpreet Quiñonez, Valentino Costa and colleagues, with an educational andrea from [employer]. Physical exam (Primary Care) Vital Signs: Last Vital Signs Pulse 61 03/31/24 14:33 BP 130/60 03/31/24 14:33 Pulse Ox 100 03/31/24 14:33 Oxygen Delivery Method Room Air 03/31/24 14:33 BMI result Body Mass Index 31.7 Tobacco/Smoking Status: Tobacco use Status Tobacco use date assessed 03/31/24 03/31/24 14:41 Patient Tobacco Use Status Former Tobacco user 03/31/24 14:31 Tobacco use type Cigarette 03/31/24 14:31 e-Cigarette/Vaping Use Never Used 03/31/24 14:31 PHQ-9: PHQ-9 Score PHQ-9: Total score 0 03/31/24 14:41 Depression Screening Interpretation: Negative Thrive Assessment: Date of Thrive Assessment Date Thrive assessed 03/31/24 03/31/24 14:41 Currently or been in a relationship where the following occur: no concerns reported Const General: cooperative and healthy appearing Nutritional Appearance: well nourished Orientation/consciousness: patient oriented x3 Limitations: no limitations HENMT Head: Yes normal to inspection Eyes General: appearance normal, both eyes and all related structures Neck Neck: Yes normal visual inspection Chest Chest palpation & inspection: normal palpation of entire chest wall Resp Effort & Inspection: normal respiratory effort Neuro General: patient oriented x3 Results AMB Hemoglobin A1c AMB Hemoglobin A1c 5.8 % Last Edit by ROCIO Schroeder on 03/31/24 14:44 Results Reviewed Results Reviewed: Laboratory Last Values Hgb A1c (Clinic) 5.8 % (4.0-6.0) 03/31/24 14:07 Assessment and Plan Assessment & Plan (1) Type 2 diabetes mellitus with obesity: Code(s): E11.69 - Type 2 diabetes mellitus with other specified complication; E66.9 - Obesity, unspecified Plan: A1c is in range. Continue current medications. (2) Obesity: Code(s): E66.9 - Obesity, unspecified (3) Hypertension: Code(s): I10 - Essential (primary) hypertension Plan: Blood pressure is in range. Continue current medications. (4) Cardiomyopathy: Comment: LVEF of 40-45% by echocardiogram, December 2020. Nonischemic most likely related to atrial fibrillation as well as untreated sleep apnea Code(s): I42.9 - Cardiomyopathy, unspecified (5) Hyperlipidemia: Code(s): E78.5 - Hyperlipidemia, unspecified (6) Atrial fibrillation: Comment: Follows with Dr. Lopez Code(s): I48.91 - Unspecified atrial fibrillation (7) Heart failure: Code(s): I50.9 - Heart failure, unspecified Orders: Orders AMB Hemoglobin A1c Today E11.69 - Type 2 diabetes mellitus with other specified complication, E66.9 - Obesity, unspecified Medications: Refilled metformin 1,000 mg PO BID 180 tabs 1RF Coding Level of Care Code Est Pt Level 4 (51228) Diagnoses Type 2 diabetes mellitus with obesity E11.69; E66.9 Obesity E66.9 Hypertension I10 Cardiomyopathy I42.9 Hyperlipidemia E78.5 Atrial fibrillation I48.91 Heart failure I50.9
[2024-03-31 14:33] VITALS: BP 130/60; PULSE 61; O2SAT 100; BMI 31.7
== END 2024-03-31 14:59 | disposition home or self-care (01) ==
PROVIDERS: PCP Internal Medicine; Visit Provider Internal Medicine
DX: E11.69 Type 2 diabetes mellitus with other specified complication (principal); I42.9 Cardiomyopathy, unspecified; I48.91 Unspecified atrial fibrillation; I50.9 Heart failure, unspecified; Z68.31 Body mass index [BMI] 31.0-31.9, adult; E66.9 Obesity, unspecified; I10 Essential (primary) hypertension; E78.5 Hyperlipidemia, unspecified
CPT/HCPCS: 83036; 99214

== ENCOUNTER 2024-04-27 10:27 | Outpatient (REF) | payer OTHER, SELFPAY ==
[2024-04-27 13:48] LABS: Anion Gap 9 (12-20); Blood Urea Nitrogen 39 mg/dL (9-16); Calcium 9.9 mg/dL (8.4-10.2); Carbon Dioxide 28 mmol/L (22-29); Chloride 108 mmol/L (96-108); Estimated Glomerular Filt Rate 36; Glucose Random 92 mg/dL (60-115); Potassium 4.4 mmol/L (3.3-5.1); Sodium 141 mmol/L (135-145)
[2024-04-27 14:39] LABS: Digoxin 0.4 ng/mL (0.8-2.0)
== END 2024-04-27 10:28 | disposition home or self-care (01) ==
LOC: HO.HMGCLDS 10:27
PROVIDERS: PCP Internal Medicine; Visit Provider Internal Medicine Cardiovascular Disease
DX: I48.20 Chronic atrial fibrillation, unspecified (principal); I48.91 Unspecified atrial fibrillation
CPT/HCPCS: 36415; 80048; 80162

== ENCOUNTER 2024-04-29 12:52 | Outpatient (AMB) | payer OTHER, SELFPAY ==
--- NOTE | 2024-04-29 12:53 | A.OFFPC_ITS ---
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: Not Required per policy Accompanied by: Self / Same As Patient Allergies onion [ONIONS] Allergy (Mild, Verified 04/29/24 12:53) ITCHING,HIVES Medication List - Last Reconciled 05/02/24 by Aris Downs MD apixaban (Eliquis) 5 mg PO BID 90 days atorvastatin 40 mg PO DAILY betamethasone valerate 0.1% appl topical 2 times a day; bisacodyl (Dulcolax (bisacodyl)) 20 mg (4 x 5 mg) PO ONCE PRN 1 day blood sugar diagnostic (FreeStyle Lite Strips) test twice per day blood sugar diagnostic (FreeStyle Test strips) To check blood sugars twice a day carvedilol 3.125 mg PO BID digoxin 125 mcg PO DAILY fenofibrate 160 mg PO DAILY furosemide 20 mg PO DAILY L.ac,bul,par,rha-B.ani,alejandrina-inu 10 billion cell -100 mg (Probitoic Digestive Support (6 strain)) caps PO lancets (FreeStyle Lancets) To check blood sugars twice a day levothyroxine 125 mcg PO QAM 90 days lorazepam 1 mg PO BEDTIME PRN metformin 1,000 mg PO BID multivitamin (Daily Multi-Vitamin tablet) 1 tab PO DAILY polyethylene glycol 3350 (Miralax) 238 grams PO ONCE PRN 1 day valsartan 40 mg PO QPM Tobacco use date assessed: 03/31/24 Fall risk assessment: No Falls in past year Last assessed Fall Risk: 04/29/24 Dental Screening Dental Screen Date: 03/31/24 HPI pe HPI Details afib htn hyperlip and hypothyr on rx; doing well and compliant; dm in good control PFSH Medical History Sleep apnea History of cardioversion Obesity Hypertension Cardiomyopathy Hyperlipidemia Hypothyroidism Atrial fibrillation Heart failure Surgical History History of cataract surgery Hx of hernia repair History of incisional hernia repair History of esophagogastroduodenoscopy (EGD) H/O colonoscopy Family History Family/Other Medical history unknown Social History Housing: House Alcohol intake: current Alcohol intake frequency: holidays/special occasions only Patient Tobacco Use Status: Former Tobacco user Tobacco use type: Cigarette e-Cigarette/Vaping Use: Never Used Second Hand Smoke Exposure: No service: No Current occupational status: retired Cognitive needs: Yes (cane/ transport chair) Hearing needs: No Vision needs: Yes (reading glasses) Questionnaire Thrive Questionnaire Date Thrive assessed: 03/31/24 KRISTOFER-7 AMB Questionnaire KRISTOFER-7 Date KRISTOFER - 7 assessed: 03/31/24 Source: Developed by Drs. Harpreet Quiñonez, Rochelle Domingo, Valentino Santana and colleagues, with an educational andrea from [employer]. Review of Systems Const Denies chills, Denies fatigue, Denies headache(s) and Denies weight loss Eyes Denies change in vision, Denies diplopia and Denies eye pain ENT Denies vertigo, Denies dizziness, Denies headache(s) and Denies nasal discharge Card Denies chest pain, Denies rapid heart rate and Denies dyspnea on exertion Resp Denies chest congestion, Denies cough, Denies pain with cough and Denies dyspnea on exertion GI Denies abdominal pain, Denies hematochezia and Denies change in bowel habits Musc Denies myalgias, Denies arthralgias and Denies joint swelling Skin/Breast Denies lesions and Denies unusual bruising Neuro Denies vertigo, Denies dizziness, Denies headache(s) and Denies focal weakness Endo Denies fatigue Physical exam (Primary Care) Vital Signs: Last Vital Signs Pulse 60 04/29/24 12:58 BP 134/84 04/29/24 12:58 Pulse Ox 98 04/29/24 12:58 Oxygen Delivery Method Room Air 04/29/24 12:58 BMI result Body Mass Index 32.0 Tobacco/Smoking Status: Tobacco use Status Tobacco use date assessed 03/31/24 04/29/24 12:54 Patient Tobacco Use Status Former Tobacco user 04/29/24 12:54 Tobacco use type Cigarette 04/29/24 12:54 e-Cigarette/Vaping Use Never Used 04/29/24 12:54 Thrive Assessment: Date of Thrive Assessment Date Thrive assessed 03/31/24 04/29/24 12:54 Const General: cooperative, healthy appearing and no acute distress Orientation/consciousness: oriented to person, oriented to place and oriented to time HENMT Head: Yes normal to inspection, Yes normocephalic and Yes atraumatic Mouth: Normal oral and palatal mucosa present and tongue normal Throat: Yes posterior oropharynx normal and Yes uvula midline Eyes General: appearance normal, both eyes and all related structures Neck Neck: Yes normal visual inspection, Yes full ROM and Yes no lymphadenopathy Thyroid: Thyroid normal Carotids: normal carotid upstroke Chest Chest palpation & inspection: normal inspection of the chest Resp Effort & Inspection: normal respiratory effort and able to speak in complete sentences Auscultation: clear to auscultation bilaterally Cardio Jugular venous distension: no JVD Palpation: normal PMI Rate: regular rate Rhythm: regular rhythm Heart sounds: S1 normal heart sound present and S2 normal heart sound present GI Inspection: Yes normal to inspection Palpation (GI): Soft to palpation and No hepatosplenomegaly present Auscultation: normal bowel sounds General: Yes no CVA tenderness Back/Spine/Pelvis Back: no CVA tenderness Skin General skin exam: no rashes or lesions noted Neuro General: oriented to person, oriented to place and oriented to time Extrem General: Yes normal to inspection and Yes full ROM Assessment and Plan Assessment & Plan (1) Physical exam: Code(s): Z00.00 - Encounter for general adult medical examination without abnormal findings Plan: stable (2) Type 2 diabetes mellitus with obesity: Code(s): E11.69 - Type 2 diabetes mellitus with other specified complication; E66.9 - Obesity, unspecified Plan: stable; same rx (3) Hypertension: Code(s): I10 - Essential (primary) hypertension Plan: stable; same rx (4) Hyperlipidemia: Code(s): E78.5 - Hyperlipidemia, unspecified Plan: stable; same rx (5) Hypothyroidism: Code(s): E03.9 - Hypothyroidism, unspecified Plan: stable; same rx (6) Atrial fibrillation: Comment: Follows with Dr. Lopez Code(s): I48.91 - Unspecified atrial fibrillation Plan: stable; same rx Orders: Orders Complete Blood Count Auto Diff 04/29/24 Z13.0 - Encounter for screening for diseases of the blood and blood-forming organs and certain disorders involving the immune mechanism Comprehensive [place]. Panel Fast 04/29/24 Z13.9 - Encounter for screening, unspecified Hemoglobin A1c 04/29/24 R73.9 - Hyperglycemia, unspecified Lipid Panel 04/29/24 Z13.220 - Encounter for screening for lipoid disorders Thyroid Stimulating Hormone 04/29/24 Z13.29 - Encounter for screening for other suspected endocrine disorder Coding Level of Care Code Est Pt Prev Care >65y(48681) Diagnoses Physical exam Z00.00 Type 2 diabetes mellitus with obesity E11.69; E66.9 Hypertension I10 Hyperlipidemia E78.5 Hypothyroidism E03.9 Atrial fibrillation I48.91
[2024-04-29 12:58] VITALS: BP 134/84; PULSE 60; O2SAT 98; BMI 32.0
== END 2024-04-29 13:26 | disposition home or self-care (01) ==
PROVIDERS: PCP Internal Medicine; Visit Provider Internal Medicine
DX: Z00.00 Encounter for general adult medical examination without abnormal findings (principal); E11.69 Type 2 diabetes mellitus with other specified complication; I48.91 Unspecified atrial fibrillation; I10 Essential (primary) hypertension; E78.5 Hyperlipidemia, unspecified; E03.9 Hypothyroidism, unspecified
CPT/HCPCS: 99397

== ENCOUNTER 2024-05-05 10:01 | Outpatient (AMB) | payer OTHER, SELFPAY ==
[2024-05-05 10:05] VITALS: BP 110/60; PULSE 73; TEMP 36.3; O2SAT 95; BMI 31.2
--- NOTE | 2024-05-05 10:05 | MHC.OFFWIV ---
Intake Vital Signs 05/05/24 10:05 Height 5 ft 9 in Weight 211 lb BMI 31.2 BP 110/60 Blood Pressure Location Lt brachial Position Sitting Pulse 73 Pulse Source Pulse Oximeter Temp 97.3 F Temp Source Temporal Artery Scan Pulse Oximetry (%) 95 Oxygen Delivery Method Room Air Intake Visit Reasons: EP ? Sinus infection, headache Intake Note: pt is here today for sinus infection and headache started 4 days ago Patient Tobacco Use Status: Former Tobacco user Allergies onion [ONIONS] Allergy (Mild, Verified 05/05/24 10:21) ITCHING,HIVES Do you need a note to return to daycare/school/sports/work: Yes HPI HPI Comments History of Present Illness Details Patient is a 69-year-old female complaining of sinus pain and headache for 4 days. She says she has a phlegmy cough and a sore throat. She denies any fevers, nausea vomiting or diarrhea. She denies any sick contacts. She states she is going to [place] for 5 days and wanted to try to take something to feel better before she left. [facility] Medical History Sleep apnea History of cardioversion Obesity Hypertension Cardiomyopathy Hyperlipidemia Hypothyroidism Atrial fibrillation Heart failure Surgical History History of cataract surgery Hx of hernia repair History of incisional hernia repair History of esophagogastroduodenoscopy (EGD) H/O colonoscopy Family History Family/Other Medical history unknown Social History Housing: House Alcohol intake: current Alcohol intake frequency: holidays/special occasions only Patient Tobacco Use Status: Former Tobacco user Tobacco use type: Cigarette e-Cigarette/Vaping Use: Never Used Second Hand Smoke Exposure: No service: No Current occupational status: retired Cognitive needs: Yes (cane/ transport chair) Hearing needs: No Vision needs: Yes (reading glasses) Review of Systems Const All systems reviewed & are unremarkable except as noted in HPI and below Physical Exam Vital Signs: Last Vital Signs Temp 97.3 F 05/05/24 10:05 Pulse 73 05/05/24 10:05 BP 110/60 05/05/24 10:05 Pulse Ox 95 05/05/24 10:05 Oxygen Delivery Method Room Air 05/05/24 10:05 BMI result Body Mass Index 31.2 Const General: cooperative, healthy appearing, comfortable and no acute distress Orientation/consciousness: patient oriented x3 Limitations: no limitations HEENT Head: Yes normal to inspection Ears: external ears normal General nose exam: Normal external nose present, Normal nares present and No nasal discharge present Face and sinus: Yes normal facial exam and Yes sinuses nontender Mouth: Normal oral and palatal mucosa present and moist mucous membranes Throat: Yes posterior oropharynx normal Eyes General: appearance normal, both eyes and all related structures Neck Neck: Yes normal visual inspection Resp Effort & Inspection: normal respiratory effort, able to speak in complete sentences, Actively coughing, no respiratory distress, not tachypneic, no tripod positioning and no use of accessory muscles Skin General skin exam: no rashes or lesions noted Neuro General: patient oriented x3 Extrem General: Yes normal to inspection and Yes no clubbing, cyanosis or edema Assessment & Plan Assessment & Plan (1) Upper respiratory tract infection: Code(s): J06.9 - Acute upper respiratory infection, unspecified Qualifiers: URI type: unspecified URI Qualified Code(s): J06.9 - Acute upper respiratory infection, unspecified Plan: Agreed with patient to send prescription to pharmacy in case her symptoms do not get better in the next 1-2 days. As she is traveling, she wanted to have something with her to start to take if she did not feel better. Recommended increasing fluid intake and using hot tea with honey and [id number] medication to treat her symptoms. Plan See above Medications: New doxycycline hyclate 100 mg PO BID 10 tabs 0RF Coding Level of Care Code Est Pt Level 3 (97895) Diagnoses Upper respiratory tract infection, unspecified type J06.9 URI type: unspecified URI
== END 2024-05-05 11:09 | disposition home or self-care (01) ==
PROVIDERS: PCP Internal Medicine; Visit Provider Physician Assistant
DX: J06.9 Acute upper respiratory infection, unspecified (principal)
CPT/HCPCS: 99213

== ENCOUNTER 2024-05-20 09:51 | Outpatient (REF) | payer OTHER, SELFPAY ==
[2024-05-20 13:19] LABS: MANUAL DIFF FLAG NO
[2024-05-20 13:34] LABS: Estimated Average Glucose 120 mg/dL; Hemoglobin A1C 148.3686 umol/L; Hemoglobin A1c % 5.8 % (<6.0)
[2024-05-20 13:48] LABS: Basophils Absolute Auto 0.1 X10*3/uL (0.0-0.2); Basophils Percent Auto 0.8 % (0-2); Eosinophils Absolute Auto 0.2 X10*3/uL (0.0-0.4); Hematocrit 43.3 % (37.0-47.0); Hemoglobin 13.9 g/dl (12.0-16.0); Imm Gran Abs Auto 0.03 X10*3/uL (0.00-0.03); Imm Gran Pct Auto 0.5 % (0.0-0.4); Lymphocytes Absolute Auto 2.1 X10*3/uL (1.2-4.9); Lymphocytes Percent Auto 31.1 % (20-40); Mean Corpuscular HGB Conc 32.1 g/dl (31.0-35.0); Mean Corpuscular Hemoglobin 28.3 pg (27.0-33.0); Mean Platelet Volume 10.4 fL (9.4-12.3); Monocytes Absolute Auto 0.5 X10*3/uL (0.1-1.2); Monocytes Percent Auto 7.5 % (2-11); Neutrophils Absolute Auto 3.8 x10*3/uL (2.0-8.3); Neutrophils Percent Auto 57.1 % (45-73); Platelet Count 290 X10*3/uL (160-400); Red Blood Count 4.92 X10*6/uL (4.20-5.50); Red Cell Distribution Width 14.8 % (11.0-16.0); White Blood Count 6.7 X10*3/uL (4.8-10.8)
[2024-05-20 13:55] LABS: Alanine Aminotransferase 12 U/L (0-31); Albumin Level 3.6 g/dL (3.5-5.0); Alkaline Phosphatase 48 U/L (39-117); Anion Gap 12 (12-20); Aspartate Amino Transferase 22 U/L (5-31); Bilirubin Total 1.1 mg/dL (0.0-1.0); Blood Urea Nitrogen 27 mg/dL (9-16); Calcium 9.6 mg/dL (8.4-10.2); Carbon Dioxide 26 mmol/L (22-29); Chloride 108 mmol/L (96-108); Cholesterol 118 mg/dL (<200); Estimated Glomerular Filt Rate 38; Glucose Fasting 100 mg/dL (60-99); HDL Cholesterol 45 mg/dL (>40); LDL Cholesterol Calculated 50 mg/dL (<100); Potassium 4.4 mmol/L (3.3-5.1); Sodium 142 mmol/L (135-145); Total Protein 6.2 g/dL (6.5-8.0); Triglycerides 115 mg/dL (<150)
[2024-05-20 13:59] LABS: Thyroid Stimulating Hormone 0.43 uIU/mL (0.32-4.0)
== END 2024-05-20 09:52 | disposition home or self-care (01) ==
LOC: HO.HMGCLDS 09:51
PROVIDERS: PCP Internal Medicine; Referring Provider Internal Medicine Nephrology; Visit Provider Internal Medicine
DX: E11.65 Type 2 diabetes mellitus with hyperglycemia (principal); E11.22 Type 2 diabetes mellitus with diabetic chronic kidney disease; I12.9 Hypertensive chronic kidney disease with stage 1 through stage 4 chronic kidney disease, or unspecified chronic kidney disease; N18.32 Chronic kidney disease, stage 3b; Z13.29 Encounter for screening for other suspected endocrine disorder; Z13.220 Encounter for screening for lipoid disorders; Z13.0 Encounter for screening for diseases of the blood and blood-forming organs and certain disorders involving the immune mechanism
CPT/HCPCS: 36415; 80053; 80061; 83036; 84443; 85025

== ENCOUNTER → 2024-05-30 10:53 | Outpatient (REF) | payer OTHER, SELFPAY ==
--- NOTE | 2024-05-30 10:55 | CA_ITS ---
Transthoracic Echocardiogram Patient (Last, First, Middle): Sunitha Santana, Gender: Female Date of : 1955 Age: 69 Procedure Date: 05/30/2024 Procedure Type: Transthoracic Echocardiogram Location: OP Height: 175.26 cm Weight: 97.52 kg BSA: 2.13 m2 Heart Rate: bpm BP: 94 / 60 mmHg Windows Deployment Technician: EL Referring MD: Abel Lopez MD Clam Shucker: Abel Lopez MD Symptoms: I42.9 - Cardiomyopathy, unspecified Study Quality: Adequate ECG Rhythm: Atrial Fibrillation Conclusions: - 1. Low normal LV ejection fraction 50-55% with mild LVH 2. Severe left atrial enlargement 3. Cardiac valvular Doppler is grossly within normal limits 4. Mildly elevated right ventricular systolic pressure 5. Mildly dilated ascending aorta at 4 cm 6. Trivial pericardial effusion Findings Left Ventricle Normal left ventricular cavity size. There is mildly increased left ventricular wall thickness. The left ventricular systolic function is low normal. The visually estimated ejection fraction is between 50-55%. Diastolic function is indeterminate on the basis of available data. Right Ventricle Mildly increased right ventricular cavity size. There is low normal right ventricular systolic function. Atria The left atrium is severely dilated. There is lipomatous hypertrophy of the interatrial septum. There is no evidence of interatrial shunt. The right atrium is moderately dilated. Aortic Valve There is mild calcification of the aortic valve. There is no aortic valve stenosis. There is no aortic valve regurgitation. Mitral Valve There is mild anterior and posterior mitral leaflet thickening. There is mild mitral annular calcification. There is trace mitral valve regurgitation. There is no mitral valve stenosis. Pulmonic Valve The pulmonic valve is likely normal. There is trace pulmonic valve regurgitation. Tricuspid Valve Normal tricuspid valve structure. There is mild tricuspid valve regurgitation. Mildly elevated right atrial pressure. Mild pulmonary hypertension is present. Great Vessels The pulmonary artery was not well visualized. There is mild dilatation of the ascending aorta measuring 4.00 cm. Small plaque is seen in the sino tubular ridge. Venous The inferior vena cava is moderately dilated and collapses greater than 50% with inspiration. Pericardium/Pleural There is a trivial circumferential pericardial effusion. Prior Study Comparison Changes noted compared to prior study dated: 05/21/2023. LV function as marginally improved Measurements 2D Linear Measurements IVSd: 1.29 0.6-0.9/0.6-1.0 cm LVIDd: 3.75 3.9-5.3/4.2-5.9 cm LVIDd Index: 1.76 2.4-3.2/2.2-3.1 cm/m2 LVIDs: 2.51 2.0-3.6 cm LVPWd: 1.29 0.7-1.1 cm LA Diam: 4.50 2.7-3.8/3.0-4.0 cm LAIDs Index: 2.11 1.5-2.3 cm/m2 LV Mass: 208.94 67-162/88-224 g LV Mass Index: 98.09 43-95/49-115 g/m2 LVOT Diam: 2.30 3.0+(-)1.3 cm 2D Systolic Function EF 4C: 50.70 >55% EF 2C: 54.40 >55% EF BiP: 52.00 >55% Mitral Valve MV Pk E: 0.80 MV Decel Time: 189.00 E'Lateral: 8.86 E'Medial: 6.92 E/E' Med: 11.50 E/E' Lat: 9.00 PHT: 55.00 MVA PHT: 4.00 Decel [place]: 4.28 Aortic Valve AoV Pk Tacho: 1.31 AoV Mn Tacho: 0.89 AoV VTI: 0.23 AoV Pk Grad: 7.00 Aov Mn Grad: 4.00 KEIKO Cont.VTI: 2.86 LVOT LVOT Pk Tacho: 1.01 LVOT Mn Tacho: 0.64 LVOT VTI: 0.16 LVOT Pk Grad: 4.00 LVOT Mn Grad: 2.00 LVOT Diam: 2.30 LVOT Area: 4.15 Diastolic Function MV Pk E: 0.80 E'Medial: 6.92 E/E' Med: 11.50 E' Laterial: 8.86 E/E' Lat: 9.00 Right Ventricle TAPSE (mm): 21.80 TVS' Tacho: 11.30 Tricuspid Valve TR Pk Tacho: 2.87 TR Pk Grad: 33.00 RA Press: 8.00 RVSP: 41.00 Great Vessels Aorta Sinus of Valsalva: 3.46 2.0-3.[address] [place]: 3.26 1.7-3.4 cm Ao Asc: 4.00 2.1-3.4 cm Updated in Other Vendor System with Status of Final Abel Lopez MD electronically signed on 05/31/2024 4:16:38 PM with status of Final
== END ==
LOC: HO.CARD 10:53
PROVIDERS: PCP Internal Medicine; Visit Provider Internal Medicine Cardiovascular Disease
DX: I42.9 Cardiomyopathy, unspecified (principal)
CPT/HCPCS: 93306

== ENCOUNTER → 2024-05-30 10:55 | Outpatient (BNV) | payer OTHER, SELFPAY | PROVIDERS: PCP Internal Medicine; Visit Provider Internal Medicine Cardiovascular Disease | DX: I36.1 Nonrheumatic tricuspid (valve) insufficiency (principal); I35.8 Other nonrheumatic aortic valve disorders; I34.81 Nonrheumatic mitral (valve) annulus calcification | CPT/HCPCS: 93306 ==

== ENCOUNTER 2024-06-02 06:23 | Day surgery (SDC) | payer OTHER, SELFPAY ==
[2024-05-31 09:20] VITALS: BMI 31.9
--- NOTE | 2024-06-01 09:36 | P.CONAN_ITS ---
Documented by User: Loyda Swain NP 06/01/24 09:39 HPI - Anesthesia Eval Consult details Narrative: 69yo F for Colonoscopy Eliquis for Afib. Follow[place] [facility]. Last office visit 11/2023. Stable for routine 6 month follow up. [facility] Active Problems Active Problems: All Active Problems Anticoagulant long-term use (Acute) History of colon polyps (Acute) Enlarged thoracic aorta (Acute) Upper respiratory tract infection (Acute) Physical exam (Acute) UTI (urinary tract infection) (Acute) Acute renal insufficiency (Acute) Type 2 diabetes mellitus with obesity (Acute) Preop exam for internal medicine (Acute) Obesity (Acute) Hypertension (Acute) Cardiomyopathy (Acute) Hyperlipidemia (Acute) Hypothyroidism (Acute) Atrial fibrillation (Acute) Heart failure (Acute) Past Medical History Medical History Sleep apnea History of cardioversion Obesity Hypertension Cardiomyopathy Hyperlipidemia Hypothyroidism Atrial fibrillation Heart failure Family History Family History Family/Other Medical history unknown Family history of problems with anesthesia: No Surgical History Surgical History History of cataract surgery Hx of hernia repair History of incisional hernia repair History of esophagogastroduodenoscopy (EGD) H/O colonoscopy History of Problems with Anesthesia: No Social History Social History Housing: House Alcohol intake: current Alcohol intake frequency: does not drink Patient Tobacco Use Status: Former Tobacco user Tobacco use type: Cigarette e-Cigarette/Vaping Use: Never Used Second Hand Smoke Exposure: No Are you DNR?: No Advance Directives: No Advance Directives Information Provided: Yes service: No Current occupational status: retired Cognitive needs: Yes (cane/ transport chair) Hearing needs: No Vision needs: Yes (reading glasses) Meds Allergies Allergy/AdvReac Type Severity Reaction Status Date / Time onion [ONIONS] Allergy Mild ITCHING,HIV Verified 05/05/24 10:21 ES Home Medications ?Medication ?Instructions ?Recorded ?Confirmed ?Last Taken ?Type L.acid,bul,para,rham-B.anim,long cap PO 12/10/23 05/02/24 Unknown History 10 billion cell-inulin 100 mg capsule (Probitoic Digestive Support (6 strain)) multivitamin (Daily Multi-Vitamin 1 tab PO DAILY 12/10/23 05/02/24 Unknown History tablet) Exam Height,Weight and Vital Signs: Height 5 ft 9 in Weight 97.976 kg Pertinent Lab Results Pertinent Lab Results: Laboratory Tests 05/20/24 10:00 WBC 6.7 Hgb 13.9 Hct 43.3 Plt Count 290 Sodium 142 Potassium 4.4 Chloride 108 Carbon Dioxide 26 BUN 27 H Creatinine 1.37 Narrative Narrative: ECHO 05/2024 Conclusions: - 1. Low normal LV ejection fraction 50-55% with mild LVH 2. Severe left atrial enlargement 3. Cardiac valvular Doppler is grossly within normal limits 4. Mildly elevated right ventricular systolic pressure 5. Mildly dilated ascending aorta at 4 cm 6. Trivial pericardial effusion EKG 11/2023 atrial fibrillation with PVC with no significant ST T wave changes with controlled rate Assessment and Plan Assessment Anesthesia Assessment: Chart Reviewed Final Anesthetic Review Family History of Problems with Anesthesia: No History of Problems with Anesthesia: No Documented by User: Charlene Samson MD 06/02/24 07:34 [facility] Past Medical History Medical History Sleep apnea History of cardioversion Obesity Hypertension Cardiomyopathy Hyperlipidemia Hypothyroidism Atrial fibrillation Heart failure Family History Family History Family/Other Medical history unknown Surgical History Surgical History History of cataract surgery Hx of hernia repair History of incisional hernia repair History of esophagogastroduodenoscopy (EGD) H/O colonoscopy Social History Social History Housing: House Alcohol intake: current Alcohol intake frequency: does not drink Patient Tobacco Use Status: Former Tobacco user Tobacco use type: Cigarette e-Cigarette/Vaping Use: Never Used Second Hand Smoke Exposure: No Are you DNR?: No Advance Directives: No Advance Directives Information Provided: Yes service: No Current occupational status: retired Cognitive needs: Yes (cane/ transport chair) Hearing needs: No Vision needs: Yes (reading glasses) Meds Allergies Allergy/AdvReac Type Severity Reaction Status Date / Time onion [ONIONS] Allergy Mild ITCHING,HIV Verified 05/05/24 10:21 ES Home Medications ?Medication ?Instructions ?Recorded ?Confirmed ?Last Taken ?Type L.acid,bul,para,rham-B.anim,long cap PO 12/10/23 05/02/24 Unknown History 10 billion cell-inulin 100 mg capsule (Probitoic Digestive Support (6 strain)) multivitamin (Daily Multi-Vitamin 1 tab PO DAILY 12/10/23 05/02/24 Unknown History tablet) Exam Airway Mallampati Class: II TM Dist: >3cm Neck ROM: Limited Heart: rrr Lungs: cta Assessment and Plan Assessment Anesthesia Assessment: Anesthesia Plan Discussed Final Anesthetic Review NPO: Yes ASA Class: III Final Preanesthetic Review: No Changes in Pt Med Stat, Meds/Allgs Chart Reviewed, Consent Obtained/Reviewed and Anes Risks/Benef Reviewed Patient Risk: Intermediate Procedure Risk: Low Anesthetic Plan Anesthetic Plan: MAC: Disposition: Standard PACU
[2024-06-02] VITALS (12 sets, daily range): BP systolic 49–149; BP diastolic 21–85; PULSE 70–82; RESP 16–18; TEMP 36.1–36.9; O2SAT 93–98
[2024-06-02 06:49] LABS: Glucose, Whole Blood 87 mg/dL (60-115)
[2024-06-02] MEDS: 0.9 % Sodium Chloride 1,000 ML 100 ML IVCONT (07:01)
--- NOTE | 2024-06-02 07:42 | MHC.SHP ---
Pre-Procedural Eval Section A - 24 Hr Update-Section A only Date of Service: 06/02/24 Section B - Complete if H&P > 30 days Chief Complaint: Personal history of colonic polyps Relevant Family History (Specify if Yes): No Relevant Social History: None Present Medications: see Short Stay Collaborative assessment Medical History: Significant History (Sleep apnea History of cardioversion Obesity Hypertension Cardiomyopathy Hyperlipidemia Hypothyroidism Atrial fibrillation Heart failure) History of Previous Operations: Relevant previous surgery/procedure and date(s) (History of cataract surgery Hx of hernia repair History of incisional hernia repair History of esophagogastroduodenoscopy (EGD) H/O colonoscopy) Allergies: Allergies Allergy/AdvReac Type Severity Reaction Status Date / Time onion [ONIONS] Allergy Mild ITCHING,HIV Verified 05/05/24 10:21 ES Review of Systems Sugical H&P ROS: Negative: Constitution, Cardiovascular, Respiratory, Neurological, Psychiatric, Hem-Onc, Allergic/Immunologic, Gastrointestinal, Genitourinary, Musculoskeletal, Integumentary, Endocrine and Eyes/Ears/Nose/Throat Exam Surgical H&P Exam: Normal: HEENT, Normal: Heart, Normal: Lungs, Normal: Extremities, Normal: Abdomen, Normal: Skin and Normal: Neurological Plan Diagnosis/Plan: Unchanged I have reviewed the history and physical and performed a pertinent physical examination on my patient. No changes have occurred unless specified. Time Spent With Patient Time: Total time managing care of this patient today ____ minutes.
--- NOTE | 2024-06-02 07:43 | HO.OPN-COLON ---
Colonoscopy Operative Note Operative Note Date of Service: 06/02/24 Narrative: Operative Information Procedure Description: Colonoscopy Indication: screening Anesthesia: MAC COLONOSCOPY Instrument: Olympus variable stiffness pediatric scope 190L Colonoscopy Monitoring: Vital signs and clinical assessment, continuous EKG monitoring, Pulse oximetry, Carbon Dioxide monitoring and blood pressure monitoring were done throughout the procedure. Colon withdrawal time was 20 minutes. Procedure: The patient was placed in the left lateral decubitis position and pre-procedure medications were administered. After a digital rectal examination of the ano-rectum, the video colonoscope was inserted into the rectum and advanced through the colon to the cecum/TI. The colonoscope was slowly withdrawn in a retrograde panoramic fashion and the colon mucosa was carefully examined including a retroflexed view of the rectum. Findings and interventions are described below. Procedure Difficulty: moderate Findings: Terminal Ileum-normal Cecum:normal Ascending Colon: 10 mm sessile polyp lifted with eleview and then removed with cold snare, with one clip applied for hemostasis, several diverticula seen Transverse Colon -normal Descending Colon:normal Sigmoid Colon: moderate diverticulosis, x 2 sessile polyps 4-6 mm removed with cold snare Rectum: Retroflexion with small internal hemorrhoids seen, grade I Anorectum - normal Intervention: cold snare and eleview injection (EMR) and cold forceps Colon preparation: Seminary Bowel Preparation Scale Right colon; 2 Transverse colon: 2 Left colon; 2 (0 = Unprepared colon segment with mucosa not seen due to solid stool that cannot be cleared. 1 = Portion of mucosa of the colon segment seen, but other areas of the colon segment not well seen due to staining, residual stool and/or opaque liquid. 2 = Minor amount of residual staining, small fragments of stool and/or opaque liquid, but mucosa of colon segment seen well. 3 = Entire mucosa of colon segment seen well with no residual staining, small fragments of stool or opaque liquid) Impression and Post Procedure Diagnosis: diverticulosis colon polyps internal hemorrhoids Plan: High fiber diet leaflet Avoid straining at stool, epsom salts and sitz bath, anusol supps or cream Repeat Colonoscopy in 5 years or earlier if clinically indicated Above findings were reviewed with the patient and relevant handouts were provided if indicated.
--- NOTE | 2024-06-02 09:21 | PC.NURSE ---
All notes regarding PACU care are listed in pacu vital signs assessment
== END 2024-06-02 10:00 | disposition home or self-care (01) ==
PROVIDERS: PCP Internal Medicine; Visit Provider Internal Medicine Gastroenterology
PROC: 0DJD8ZZ Inspection of Lower Intestinal Tract, Via Natural or Artificial Opening Endoscopic (ICD-10-PCS; CPT 45378; principal; 2024-06-02 07:30)
DX: Z12.11 Encounter for screening for malignant neoplasm of colon (principal); Z86.010 Personal history of colon polyps; D12.2 Benign neoplasm of ascending colon; D12.5 Benign neoplasm of sigmoid colon; K57.30 Diverticulosis of large intestine without perforation or abscess without bleeding; K64.0 First degree hemorrhoids; I11.0 Hypertensive heart disease with heart failure; I50.9 Heart failure, unspecified; I42.9 Cardiomyopathy, unspecified; E78.5 Hyperlipidemia, unspecified; E03.9 Hypothyroidism, unspecified; I48.91 Unspecified atrial fibrillation; G47.33 Obstructive sleep apnea (adult) (pediatric); Z79.01 Long term (current) use of anticoagulants; Z79.899 Other long term (current) drug therapy; Z79.84 Long term (current) use of oral hypoglycemic drugs; Z99.89 Dependence on other enabling machines and devices; Z98.890 Other specified postprocedural states; Z87.891 Personal history of nicotine dependence
CPT/HCPCS: 45385; 45381; 82947; 88305; J0330; J2250; J2704

== ENCOUNTER → 2024-06-02 06:23 | Outpatient (BNV) | payer OTHER, SELFPAY | PROVIDERS: PCP Internal Medicine; Visit Provider Internal Medicine Gastroenterology | DX: Z12.11 Encounter for screening for malignant neoplasm of colon (principal); D12.2 Benign neoplasm of ascending colon; D12.5 Benign neoplasm of sigmoid colon; K57.90 Diverticulosis of intestine, part unspecified, without perforation or abscess without bleeding | CPT/HCPCS: 45381; 45385 ==

== ENCOUNTER 2024-06-09 13:06 | Outpatient (AMB) | payer OTHER, SELFPAY ==
--- NOTE | 2024-06-09 13:08 | A.OFFVIS_ITS ---
Vital Signs 06/09/24 13:10 Height 5 ft 9 in Weight 211 lb 10.3 oz BMI 31.3 BP 120/80 Blood Pressure Location Lt brachial Position Sitting Pulse 77 Intake Visit Reasons: 6 months after echo Intake Note: 6 month follow-up echo feeling good Interventional Neuroradiologist Required: No Allergies onion [ONIONS] Allergy (Mild, Verified 05/05/24 10:21) ITCHING,HIVES Medication List - Last Reconciled 06/09/24 by Abel Lopez MD apixaban (Eliquis) 5 mg PO BID 90 days atorvastatin 40 mg PO DAILY betamethasone valerate 0.1% appl topical 2 times a day; bisacodyl (Dulcolax (bisacodyl)) 20 mg (4 x 5 mg) PO ONCE PRN 1 day blood sugar diagnostic (FreeStyle Lite Strips) test twice per day blood sugar diagnostic (FreeStyle Test strips) To check blood sugars twice a day carvedilol 3.125 mg PO BID digoxin 125 mcg PO DAILY doxycycline hyclate 100 mg PO BID fenofibrate 160 mg PO DAILY furosemide 20 mg PO DAILY L.ac,bul,par,rha-B.ani,alejandrina-inu 10 billion cell -100 mg (Probitoic Digestive Support (6 strain)) caps PO lancets (FreeStyle Lancets) To check blood sugars twice a day levothyroxine 125 mcg PO QAM 90 days lorazepam 1 mg PO BEDTIME PRN metformin 1,000 mg PO BID multivitamin (Daily Multi-Vitamin tablet) 1 tab PO DAILY polyethylene glycol 3350 (Miralax) 238 grams PO ONCE PRN 1 day valsartan 40 mg PO QPM HPI Comments Details: Sunitha comes for follow-up. She has been doing well from cardiac perspective. She denies any worsening heart failure symptoms. No worsening leg edema, weight gain, abdominal distension. Continues to have shortness of breath related to reduced exercise capacity. No side effects to her medications. No bleeding issues or neurologic events. Recent echocardiogram shows low normal LV ejection fraction 50-55% with severe left atrial enlargement. [facility] Medical History Sleep apnea History of cardioversion Obesity Hypertension Cardiomyopathy Hyperlipidemia Hypothyroidism Atrial fibrillation Heart failure Surgical History History of cataract surgery Hx of hernia repair History of incisional hernia repair History of esophagogastroduodenoscopy (EGD) H/O colonoscopy Family History Family/Other Medical history unknown Social History Housing: House Alcohol intake: current Alcohol intake frequency: does not drink Patient Tobacco Use Status: Former Tobacco user Tobacco use type: Cigarette e-Cigarette/Vaping Use: Never Used Second Hand Smoke Exposure: No service: No Current occupational status: retired Cognitive needs: Yes (cane/ transport chair) Hearing needs: No Vision needs: Yes (reading glasses) Review of Systems Const Denies chills, Denies fatigue, Denies fever(s), Denies frequent falls, Denies weakness, Denies weight gain and Denies weight loss ENT Denies dizziness Card Denies chest pain, Denies leg edema, Denies lightheadedness, Denies palpitations, Denies dyspnea, Denies dyspnea on exertion, Denies orthopnea and Denies other (loss of consciousness) Resp Denies cough, Denies dyspnea and Denies dyspnea on exertion GI Denies hematochezia and Denies change in stool character Musc Denies abnormal gait, Denies muscle weakness, Denies numbness, Denies radiating pain into limb and Denies tingling Neuro Denies abnormal gait, Denies dizziness, Denies frequent falls, Denies numbness, Denies tingling and Denies weakness Endo Denies fatigue and Denies palpitations Physical Exam Vital Signs: Last Vital Signs Pulse 77 06/09/24 13:10 BP 120/80 06/09/24 13:10 BMI result Body Mass Index 31.3 Const General: cooperative, comfortable, no acute distress, alert, awake and well groomed Nutritional Appearance: obese Orientation/consciousness: patient oriented x3 Limitations: ambulation with walker Neck Neck: Yes trachea midline, Yes supple and Yes no JVD Resp Effort & Inspection: normal respiratory effort Auscultation: clear to auscultation bilaterally Cardio Jugular venous distension: no JVD Rhythm: abnormal rhythm irregularly irregular Heart sounds: S1 normal heart sound present and S2 normal heart sound present GI Auscultation: normal bowel sounds Skin General skin exam: no rashes or lesions noted Neuro General: patient oriented x3 and no focal motor deficits Extrem General: Yes no clubbing, cyanosis or edema Psych Appearance: grossly normal Assessment & Plan Assessment & Plan (1) Heart failure: Code(s): I50.9 - Heart failure, unspecified Category: Medical Plan: Heart failure with now preserved ejection fraction. LV ejection fraction is improved with better rate control with digoxin and carvedilol.. Continue both. No signs or symptoms of heart failure. Heart failure symptoms have improved and currently takes Lasix only about once a month. Advised to monitor for signs and symptoms of heart failure. Continue current neurohormonal modulation with carvedilol and valsartan. Advised to call me with worsening symptoms. (2) Atrial fibrillation: Comment: Follows with Dr. Lopez Code(s): I48.91 - Unspecified atrial fibrillation Category: Medical Plan: Chronic long-lasting atrial fibrillation has failed rhythm control approach is significant left atrial enlargement unlikely to pursue rhythm control approach. Has done well with rate control with carvedilol and digoxin. Continue the same. Quarterly digoxin assay should be performed. Continue full oral anticoagulation, currently on Eliquis. (3) Enlarged thoracic aorta: Code(s): I77.89 - Other specified disorders of arteries and arterioles Category: Medical Plan: Mildly enlarged thoracic aorta. Will continue monitor on a yearly basis. Continue aggressive blood pressure control which is currently well optimized. Will follow up in the clinic in 6 months time, sooner p.r.n.. Thank you for allowing me to partake in her care Medications: Resumed digoxin 125 mcg PO DAILY 90 tabs 2RF furosemide 20 mg PO DAILY 45 tabs 2RF I50.9 - Heart failure, unspecified Coding Level of Care Code Est Pt Level 4 (29963) Diagnoses Heart failure I50.9 Atrial fibrillation I48.91 Enlarged thoracic aorta I77.89
[2024-06-09 13:10] VITALS: BP 120/80; PULSE 77; BMI 31.3
== END 2024-06-09 13:35 | disposition home or self-care (01) ==
PROVIDERS: PCP Internal Medicine; Visit Provider Internal Medicine Cardiovascular Disease
DX: I50.9 Heart failure, unspecified (principal); I48.91 Unspecified atrial fibrillation; I77.89 Other specified disorders of arteries and arterioles
CPT/HCPCS: 99214

== ENCOUNTER → 2024-06-09 13:06 | Outpatient (BNVA) | payer OTHER, SELFPAY | PROVIDERS: PCP Internal Medicine; Visit Provider Internal Medicine Cardiovascular Disease | DX: I11.0 Hypertensive heart disease with heart failure (principal); I50.30 Unspecified diastolic (congestive) heart failure; I48.91 Unspecified atrial fibrillation; I77.89 Other specified disorders of arteries and arterioles | CPT/HCPCS: 99212 ==

== ENCOUNTER 2024-07-14 14:20 | Outpatient (AMB) | payer OTHER, SELFPAY ==
--- NOTE | 2024-07-14 14:22 | MHC.PC.OV ---
Vital Signs 07/14/24 14:23 Height 5 ft 9 in Weight 211 lb 6 oz BMI 31.2 BP 110/70 Blood Pressure Location Lt brachial Position Sitting Pulse 65 Pulse Source Pulse Oximeter Pulse Oximetry (%) 96 Oxygen Delivery Method Room Air Intake Visit Reasons: 3mth f/u Intake Note: Patient is here to follow up on DM, HTN, HLD, Afib. Asset Protection Representative Required: No Tattoo Technician: Not Required per policy Accompanied by: Self / Same As Patient Allergies onion [ONIONS] Allergy (Mild, Verified 07/14/24 15:28) ITCHING,HIVES Medication List - Last Reconciled 07/14/24 by Indra Heaton MD apixaban (Eliquis) 5 mg PO BID 90 days atorvastatin 40 mg PO DAILY betamethasone valerate 0.1% appl topical 2 times a day; blood sugar diagnostic (FreeStyle Lite Strips) test twice per day blood sugar diagnostic (FreeStyle Test strips) To check blood sugars twice a day carvedilol 3.125 mg PO BID digoxin 125 mcg PO DAILY fenofibrate 160 mg PO DAILY furosemide 20 mg PO DAILY L.ac,bul,par,rha-B.ani,alejandrina-inu 10 billion cell -100 mg (Probitoic Digestive Support (6 strain)) caps PO lancets (FreeStyle Lancets) To check blood sugars twice a day levothyroxine 125 mcg PO QAM 90 days lorazepam 1 mg PO BEDTIME PRN metformin 1,000 mg PO BID multivitamin (Daily Multi-Vitamin tablet) 1 tab PO DAILY valsartan 40 mg PO QPM Tobacco use date assessed: 07/14/24 Fall risk assessment: No Falls in past year Last assessed Fall Risk: 07/14/24 Dental Screening Dental Screen Date: 03/31/24 HPI 3mth f/u HPI Details 69-year-old female presents to the office to discuss her chronic medical conditions. Patient is at baseline state of health. 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 Patient feels slightly unsteady in the morning and symptoms improved during the day. She uses a walker to ambulate more in abundance of caution. Able to drive if need be. Patient is independent with her activities of daily living. Able to cook, clean and bathe independently. [facility] Medical History Sleep apnea History of cardioversion Obesity Hypertension Cardiomyopathy Hyperlipidemia Hypothyroidism Atrial fibrillation Heart failure Surgical History History of cataract surgery Hx of hernia repair History of incisional hernia repair History of esophagogastroduodenoscopy (EGD) H/O colonoscopy Family History Family/Other Medical history unknown Social History Housing: House Alcohol intake: current Alcohol intake frequency: does not drink Patient Tobacco Use Status: Former Tobacco user Tobacco use type: Cigarette e-Cigarette/Vaping Use: Never Used Second Hand Smoke Exposure: No service: No Current occupational status: retired Cognitive needs: Yes (cane/ transport chair) Hearing needs: No Vision needs: Yes (reading glasses) Questionnaire Thrive Questionnaire Date Thrive assessed: 03/31/24 KRISTOFER-7 AMB Questionnaire KRISTOFER-7 Date KRISTOFER - 7 assessed: 03/31/24 Source: Developed by Drs. Harpreet Quiñonez, Rochelle Domingo, Valentino Santana and colleagues, with an educational andrea from [employer]. Physical exam (Primary Care) Vital Signs: Last Vital Signs Pulse 65 07/14/24 14:23 BP 110/70 07/14/24 14:23 Pulse Ox 96 07/14/24 14:23 Oxygen Delivery Method Room Air 07/14/24 14:23 Care Plan Goal for BP management: Blood pressure is stable. Continue current medications. BMI result Body Mass Index 31.2 BMI Assessment/Plan discussion: High Tobacco/Smoking Status: Tobacco use Status Tobacco use date assessed 07/14/24 07/14/24 14:29 Patient Tobacco Use Status Former Tobacco user 07/14/24 14:29 Tobacco use type Cigarette 07/14/24 14:29 e-Cigarette/Vaping Use Never Used 07/14/24 14:29 Thrive Assessment: Date of Thrive Assessment Date Thrive assessed 03/31/24 07/14/24 14:29 Advance Care Planning discussion: Exists, not on file Date of discussion: 07/14/24 Who was present: Patient Forms completed: Health Care Proxy and MOLST Const General: cooperative and healthy appearing Nutritional Appearance: well nourished Orientation/consciousness: patient oriented x3 Limitations: no limitations HENMT Head: Yes normal to inspection Eyes General: appearance normal, both eyes and all related structures Neck Neck: Yes normal visual inspection Chest Chest palpation & inspection: normal palpation of entire chest wall Resp Effort & Inspection: normal respiratory effort Neuro General: patient oriented x3 Extrem Other: Right and left knee: No joint line tenderness. Bilateral crepitus positive. Full range of motion. Assessment and Plan Assessment & Plan (1) Type 2 diabetes mellitus with obesity: Code(s): E11.69 - Type 2 diabetes mellitus with other specified complication; E66.9 - Obesity, unspecified Plan: A1c is in range. Continue medications at same dosage. (2) Hypertension: Code(s): I10 - Essential (primary) hypertension Plan: Blood pressure is in range. Continue medications at same dosage. (3) Atrial fibrillation: Comment: Follows with Dr. Lopez Code(s): I48.91 - Unspecified atrial fibrillation Plan: Condition is stable. On oral anticoagulation. (4) Osteoarthritis: Code(s): M19.90 - Unspecified osteoarthritis, unspecified site Plan: X-ray of the right and left knee ordered. Stretching exercises and strengthening of the knee exercises suggested. Orders: Orders MM screening mammo BI Today Z12.31 - Encounter for screening mammogram for malignant neoplasm of breast XR knee LT 3V Today S83.92XA - Sprain of unspecified site of left knee, initial encounter XR knee RT 3V Today S83.91XA - Sprain of unspecified site of right knee, initial encounter Coding Level of Care Code Est Pt Level 4 (81106) Complex EM visit Add On G2211 Diagnoses Type 2 diabetes mellitus with obesity E11.69; E66.9 Hypertension I10 Atrial fibrillation I48.91 Osteoarthritis M19.90 Additional Codes Vital Signs *Quality* - Advance Care Planning discussion: Exists, not on file ([id number])
[2024-07-14 14:23] VITALS: BP 110/70; PULSE 65; O2SAT 96; BMI 31.2
== END 2024-07-14 15:38 | disposition home or self-care (01) ==
PROVIDERS: PCP Internal Medicine; Visit Provider Internal Medicine
DX: E11.69 Type 2 diabetes mellitus with other specified complication (principal); I48.91 Unspecified atrial fibrillation; Z68.31 Body mass index [BMI] 31.0-31.9, adult; E66.9 Obesity, unspecified; I10 Essential (primary) hypertension; M19.90 Unspecified osteoarthritis, unspecified site; Z00.00 Encounter for general adult medical examination without abnormal findings
CPT/HCPCS: 1123F; 83036; 99214

== ENCOUNTER 2024-08-25 11:32 | Outpatient (REF) | payer OTHER, SELFPAY ==
--- NOTE | ~2024-08-25 | MM_ITS ---
EXAMINATION: MM SCREENING DIGITAL BREAST TOMOSYNTHESIS, BILATERAL CLINICAL INFORMATION: Screening. Asymptomatic. COMPARISON: Mammography: Comparison is made with available priors TECHNIQUE: Digital breast mammography with tomosynthesis is performed in both the craniocaudal and mediolateral oblique views along with computer-aided detection (CAD). FINDINGS: The breasts are heterogeneously dense, which may obscure small masses (ACR BI-RADS breast composition Category c). There are no significant masses, abnormal calcifications, or other abnormalities. MM/MM tomosynthesis screening BI IMPRESSION: No mammographic evidence of malignancy. ASSESSMENT: BI-RADS BI-RADS 1 - Negative RECOMMENDATION: Routine annual mammography screening. 1 year F/U This examination should not preclude the clinical evaluation of a suspicious palpable abnormality. This patient's information was entered into a reminder system with a target due date for their next mammogram. Electronically signed by: Miriam Barry DO 09/06/2024 12:14 PM EDT
== END 2024-08-25 11:33 | disposition home or self-care (01) ==
LOC: HO.MAMMO 11:32
PROVIDERS: PCP Internal Medicine; Visit Provider Internal Medicine
DX: Z12.31 Encounter for screening mammogram for malignant neoplasm of breast (principal)
CPT/HCPCS: 77063; 77067

== ENCOUNTER → 2024-08-25 11:45 | Outpatient (BNV) | payer OTHER, SELFPAY | PROVIDERS: PCP Internal Medicine; Visit Provider Internal Medicine | DX: Z12.31 Encounter for screening mammogram for malignant neoplasm of breast (principal) | CPT/HCPCS: 77063; 77067 ==

== ENCOUNTER 2024-09-30 13:32 | Outpatient (REF) | payer OTHER, SELFPAY | END 2024-09-30 13:33 | disposition home or self-care (01) | LOC: HO.XRAY 13:32 | PROVIDERS: PCP Internal Medicine; Visit Provider Internal Medicine | DX: S83.91XA Sprain of unspecified site of right knee, initial encounter (principal); S83.92XA Sprain of unspecified site of left knee, initial encounter | CPT/HCPCS: 73562 ==

== ENCOUNTER 2024-10-06 08:52 | Outpatient (AMB) | payer OTHER, SELFPAY ==
--- NOTE | 2024-10-06 09:02 | MHC.PC.OV ---
Vital Signs 10/06/24 09:03 Height 5 ft 9 in Weight 207 lb 8 oz BMI 30.6 BP 130/90 H Blood Pressure Location Lt brachial Position Sitting Pulse 74 Pulse Source Pulse Oximeter Pulse Oximetry (%) 96 Oxygen Delivery Method Room Air Intake Visit Reasons: 6mth f/u-see comm Intake Note: Patient is here to follow up on DM, HTN, HLD, Afib. 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: Present Accompanied by: Spouse Allergies onion [ONIONS] Allergy (Mild, Verified 10/13/24 16:30) ITCHING,HIVES Medication List - Last Reconciled 10/13/24 by Indra Heaton MD apixaban (Eliquis) 5 mg PO BID 90 days atorvastatin 40 mg PO DAILY betamethasone valerate 0.1% appl topical 2 times a day; blood sugar diagnostic (FreeStyle Lite Strips) test twice per day blood sugar diagnostic (FreeStyle Test strips) To check blood sugars twice a day carvedilol 3.125 mg PO BID digoxin 125 mcg PO DAILY fenofibrate 160 mg PO DAILY furosemide 20 mg PO DAILY L.ac,bul,par,rha-B.ani,alejandrina-inu 10 billion cell -100 mg (Probitoic Digestive Support (6 strain)) caps PO lancets (FreeStyle Lancets) To check blood sugars twice a day levothyroxine 125 mcg PO QAM 90 days lorazepam 1 mg PO BEDTIME PRN metformin 1,000 mg PO BID multivitamin (Daily Multi-Vitamin tablet) 1 tab PO DAILY valsartan 40 mg PO QPM Tobacco use date assessed: 10/06/24 Fall risk assessment: No Falls in past year Last assessed Fall Risk: 10/06/24 Dental Screening Dental Screen Date: 03/31/24 HPI 6mth f/u-see comm HPI Details 69-year-old female presents to the office to discuss her chronic medical conditions. Patient is compliant with medications and reporting no side effects. Able to function and do all activities of daily living. [facility] Medical History Sleep apnea History of cardioversion Obesity Hypertension Cardiomyopathy Hyperlipidemia Hypothyroidism Atrial fibrillation Heart failure Surgical History History of cataract surgery Hx of hernia repair History of incisional hernia repair History of esophagogastroduodenoscopy (EGD) H/O colonoscopy Family History Family/Other Medical history unknown Social History Housing: House Alcohol intake: current Alcohol intake frequency: does not drink Patient Tobacco Use Status: Former Tobacco user Tobacco use type: Cigarette e-Cigarette/Vaping Use: Never Used Second Hand Smoke Exposure: No service: No Current occupational status: retired Cognitive needs: Yes (cane/ transport chair) Hearing needs: No Vision needs: Yes (reading glasses) Questionnaire Thrive Questionnaire Date Thrive assessed: 03/31/24 AUDIT C Alcohol Use Questionnaire (AUDIT-C) 2. How many drinks containing alcohol do you have on a typical day when you are drinking?: 1 or 2 3. How often do you have six or more drinks on one occasion?: Never Total Score: 0 KRISTOFER-7 AMB Questionnaire KRISTOFER-7 Date KRISTOFER - 7 assessed: 03/31/24 Source: Developed by Drs. Harpreet Quiñonez, Rochelle Domingo, Valentino Santana and colleagues, with an educational andrea from [employer]. Physical exam (Primary Care) Vital Signs: Last Vital Signs Pulse 74 10/06/24 09:03 BP 130/90 H 10/06/24 09:03 Pulse Ox 96 10/06/24 09:03 Oxygen Delivery Method Room Air 10/06/24 09:03 BMI result Body Mass Index 30.6 Tobacco/Smoking Status: Tobacco use Status Tobacco use date assessed 10/06/24 10/06/24 09:08 Patient Tobacco Use Status Former Tobacco user 10/06/24 09:08 Tobacco use type Cigarette 10/06/24 09:08 e-Cigarette/Vaping Use Never Used 10/06/24 09:08 Thrive Assessment: Date of Thrive Assessment Date Thrive assessed 03/31/24 10/06/24 09:08 Const General: cooperative and healthy appearing Nutritional Appearance: well nourished Orientation/consciousness: patient oriented x3 Limitations: no limitations HENMT Head: Yes normal to inspection Eyes General: appearance normal, both eyes and all related structures Neck Neck: Yes normal visual inspection Chest Chest palpation & inspection: normal palpation of entire chest wall Resp Effort & Inspection: normal respiratory effort Neuro General: patient oriented x3 Results AMB Hemoglobin A1c AMB Hemoglobin A1c 5.6 % Last Edit by ROCIO Schroeder on 10/06/24 09:17 Results Reviewed Results Reviewed: Laboratory Last Values Hgb A1c (Clinic) 5.6 % (4.0-6.0) 10/06/24 09:02 Coding Level of Care Code Est Pt Level 4 (76565) Complex EM visit Add On G2211 Diagnoses Hypertension I10 Hyperlipidemia E78.5 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 Continue medications at same dosage. (2) Hyperlipidemia: Code(s): E78.5 - Hyperlipidemia, unspecified Category: Medical Plan: LDL in range. Continue medications at same dosage. (3) Type 2 diabetes mellitus with obesity: Code(s): E11.69 - Type 2 diabetes mellitus with other specified complication; E66.9 - Obesity, unspecified Category: Medical Plan: Condition is stable. Orders: Orders AMB Hemoglobin A1c 10/06/24 E11.69 - Type 2 diabetes mellitus with other specified complication, E66.9 - Obesity, unspecified
[2024-10-06 09:03] VITALS: BP 130/90; PULSE 74; O2SAT 96; BMI 30.6
== END 2024-10-06 09:33 | disposition home or self-care (01) ==
PROVIDERS: PCP Internal Medicine; Visit Provider Internal Medicine
DX: I10 Essential (primary) hypertension (principal); E11.69 Type 2 diabetes mellitus with other specified complication; E66.9 Obesity, unspecified; Z68.30 Body mass index [BMI] 30.0-30.9, adult; E78.5 Hyperlipidemia, unspecified

== ENCOUNTER → 2024-10-06 08:52 | Outpatient (BNVA) | payer OTHER, SELFPAY | PROVIDERS: PCP Internal Medicine; Visit Provider Internal Medicine | DX: I10 Essential (primary) hypertension (principal); E78.5 Hyperlipidemia, unspecified; E11.69 Type 2 diabetes mellitus with other specified complication; E66.9 Obesity, unspecified; Z68.30 Body mass index [BMI] 30.0-30.9, adult; Z71.3 Dietary counseling and surveillance | CPT/HCPCS: 83036; 99212 ==

== ENCOUNTER 2024-12-12 12:17 | Outpatient (AMB) | payer OTHER, SELFPAY ==
[2024-12-12 12:30] VITALS: BP 120/62; PULSE 75; BMI 29.9
--- NOTE | 2024-12-12 12:30 | A.OFFVIS_ITS ---
Vital Signs 12/12/24 12:30 Height 5 ft 9 in Weight 202 lb 13.204 oz BMI 29.9 BP 120/62 Blood Pressure Location Lt brachial Position Sitting Pulse 75 Pulse Source Monitor Intake Visit Reasons: 6m follow up Allergies onion [ONIONS] Allergy (Mild, Verified 10/13/24 16:30) ITCHING,HIVES Medication List - Last Reconciled 12/12/24 by Abel Lopez MD apixaban (Eliquis) 5 mg PO BID 90 days atorvastatin 40 mg PO DAILY betamethasone valerate 0.1% appl topical 2 times a day; blood sugar diagnostic (FreeStyle Lite Strips) test twice per day blood sugar diagnostic (FreeStyle Test strips) To check blood sugars twice a day carvedilol 3.125 mg PO BID digoxin 125 mcg PO DAILY fenofibrate 160 mg PO DAILY furosemide 20 mg PO DAILY PRN L.ac,bul,par,rha-B.ani,alejandrina-inu 10 billion cell -100 mg (Probitoic Digestive Support (6 strain)) caps PO lancets (FreeStyle Lancets) To check blood sugars twice a day levothyroxine 125 mcg PO QAM 90 days lorazepam 1 mg PO BEDTIME PRN metformin 1,000 mg PO BID multivitamin (Daily Multi-Vitamin tablet) 1 tab PO DAILY valsartan 40 mg PO QPM HPI Comments Details: Sunitha comes for follow-up. No hospitalization last 6 months. She has remained stable. Denies any worsening shortness of breath, orthopnea, PND, leg edema. Takes all her medications. No prolonged palpitation irregular heartbeat. She does complain of feeling fatigued which has been a long-term complaint but says she pushes herself to remain active through that. She takes all her medications. No bleeding issues or neurologic events. No exertional chest pain. No lightheadedness, syncope. [facility] Medical History Sleep apnea History of cardioversion Obesity Hypertension Cardiomyopathy Hyperlipidemia Hypothyroidism Atrial fibrillation Heart failure Surgical History History of cataract surgery Hx of hernia repair History of incisional hernia repair History of esophagogastroduodenoscopy (EGD) H/O colonoscopy Family History Family/Other Medical history unknown Social History Housing: House Alcohol intake: current Alcohol intake frequency: does not drink Patient Tobacco Use Status: Former Tobacco user Tobacco use type: Cigarette e-Cigarette/Vaping Use: Never Used Second Hand Smoke Exposure: No service: No Current occupational status: retired Cognitive needs: Yes (cane/ transport chair) Hearing needs: No Vision needs: Yes (reading glasses) Review of Systems Const Denies weakness ENT Denies dizziness Card Denies chest pain, Denies chest pain with activity, Denies syncope, Denies rapid heart rate, Denies pedal edema, Denies edema, Denies leg edema, Denies lightheadedness, Denies palpitations, Denies dyspnea, Denies dyspnea on exertion and Denies orthopnea Resp Denies cough, Denies dyspnea and Denies dyspnea on exertion GI Denies hematochezia and Denies change in stool character Musc Denies abnormal gait, Denies muscle cramps, Denies muscle weakness, Denies numbness, Denies radiating pain into limb and Denies tingling Neuro Denies abnormal gait, Denies dizziness, Denies syncope, Denies numbness, Denies tingling and Denies weakness Endo Denies palpitations Physical Exam Vital Signs: Last Vital Signs Pulse 75 12/12/24 12:30 BP 120/62 12/12/24 12:30 BMI result Body Mass Index 29.9 Const General: cooperative, comfortable, no acute distress, alert, awake and well groomed Nutritional Appearance: obese Orientation/consciousness: patient oriented x3 Limitations: ambulation with walker Neck Neck: Yes trachea midline, Yes supple and Yes no JVD Resp Effort & Inspection: normal respiratory effort Auscultation: clear to auscultation bilaterally Cardio Jugular venous distension: no JVD Rhythm: abnormal rhythm irregularly irregular Heart sounds: S1 normal heart sound present and S2 normal heart sound present GI Auscultation: normal bowel sounds Skin General skin exam: no rashes or lesions noted Neuro General: patient oriented x3 and no focal motor deficits Extrem General: Yes no clubbing, cyanosis or edema Psych Appearance: grossly normal Office Procedures EKG Details: EKG shows atrial fibrillation rightward axis otherwise no significant changes [id number], Complete Assessment & Plan Assessment & Plan (1) Atrial fibrillation: Comment: Follows with Dr. Lopez Code(s): I48.91 - Unspecified atrial fibrillation Category: Medical Plan: Atrial fibrillation with good rate control on current therapy with digoxin and carvedilol. Has done well with rate control approach with no progressive heart failure syndrome and LV ejection fraction has improved. Continue aggressive rate control approach. Has failed rhythm control approach with cardioversion including amiodarone therapy. Has significant left atrial enlargement likelihood of achieving rhythm control is extremely low. Discussed with her. Continue full oral anticoagulation, currently on Eliquis 5 mg b.i.d.. Continue semi annual renal function test and digoxin assay. (2) Cardiomyopathy: Comment: LVEF of 40-45% by echocardiogram, December 2020. Nonischemic most likely related to atrial fibrillation as well as untreated sleep apnea Code(s): I42.9 - Cardiomyopathy, unspecified Category: Medical Plan: Cardiomyopathy process in the past with improved LV EF on current neurohormonal modulation with carvedilol and rate control as well as valsartan therapy. Continue the same. Currently no signs or symptoms of heart failure. Continue Lasix as need be. Heart failure symptoms were discussed. Daily weight monitoring avoidance salt loading was discussed (3) Enlarged thoracic aorta: Code(s): I77.89 - Other specified disorders of arteries and arterioles Category: Medical Plan: Mildly enlarged thoracic aorta. No interventions required. Continue monitor by echocardiogram. Continue aggressive blood pressure control which is currently well optimized. Continue statin therapy with target goal LDL less than 100 mg/dL. Will follow up in the clinic in 6 months time, sooner p.r.n.. Thank you for allowing me to partake in his care Orders: Orders Digoxin Today I48.20 - Chronic atrial fibrillation, unspecified, I48.91 - Unspe cified atrial fibrillation Basic Metabolic Panel Today I48.91 - Unspecified atrial fibrillation Complete Blood Count no Diff Today I48.91 - Unspecified atrial fibrillation Medications: Changed From furosemide 20 mg PO DAILY 45 tabs 2RF I50.9 - Heart failure, unspecified To furosemide 20 mg PO DAILY PRN I50.9 - Heart failure, unspecified Coding Level of Care Code Est Pt Level 4 (99995) Complex EM visit Add On G2211 Diagnoses Atrial fibrillation I48.91 Cardiomyopathy I42.9 Enlarged thoracic aorta I77.89 CPT Codes EKG - CPT: 75224-[id number], Complete ([id number])
--- OUTSIDE RECORDS SUMMARY | 2024-12-12 17:08 | XMS_ITS | Clinical Summary ---
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 Name Role Phone Indra Heaton MD Primary Care Provider + Allergies No known active allergies Medications valsartan (DIOVAN) 40 MG tablet 03/17/2023 Active metFORMIN (GLUCOPHAGE) 1000 MG tablet 03/18/2023 Acti ve LORazepam (ATIVAN) 1 MG tablet 03/26/2023 Active levothyroxine (SYNTHROID, LEVOTHROID) 125 MCG tablet 03/17/2023 Active fenofibrate (TRIGLIDE) 160 MG tablet 03/17/2023 Active carvedilol (COREG) 3.125 MG tablet 03/17/2023 Active atorvastatin (LIPITOR) 40 MG tablet 03/17/2023 Active Eliquis 5 MG tablet 03/18/2023 Active Multiple Vitamin (multivitamin) tablet Take 1 tablet by mouth 1 (one) time each day Active saccharomyces boulardii (FLORASTOR) 250 MG capsule Take 250 mg by mouth in the morning and 250 mg in the evening. Active furosemide (LASIX) 20 MG tablet Take 20 mg by mouth in the morning and 20 mg in the evening. Active Active Problems Problem Noted Date Diagnosed Date Type 2 diabetes mellitus wit h diabetic chronic kidney disease 05/30/2024 Hyperlipidemia 05/21/2023 Essential (primary) hypertension 05/21/2023 Sleep apnea 05/21/2023 Hypothyroidism 05/21/2023 Acute nontraumatic kidney injury 05/21/2023 Stage 3b chronic kidney disease 05/21/2023 Social History Tobacco Use Types Packs/Day Years Used Date Smoking Tobacco: Every Day Cigarettes Smokeless Tobacco: Never Tobacco Cessation:Ready to Q uit: Not Asked; Counseling Given: Not Answered Alcohol Use Standard Drinks/Week Comments Not Currently 0 (1 standard drink = 0.6 oz pur e alcohol) Comments Unknown Sex and Gender Information Value Date Recorded Sex Assigned at Not on file Legal Sex Female 2:10 PM EDT Gender Identity Not on file Sexual Orientation Not on file Last Filed Vital Signs Vital Sign Reading Time Taken Comments Blood Pressure 120/60 05/30/2024 4:08 PM EDT Pulse 74 05/30/2024 4:08 PM EDT Temperature - - Respiratory Rate - - Oxygen Saturation 98% 05/30/2024 4:08 PM EDT Inhaled Oxygen Concentration - - Weight 97 kg (213 lb 12.8 oz) 05/30/2024 4:08 PM EDT Height - - Body Mass Index - - Plan of Treatment Health Maintenance Due Date Last Done Comments Breast Cancer Screening 1955 Pneumococcal Vaccine: 65+ Ye ars (1 of 2 - PCV) 1961 Colorectal Cancer Screening: Annual FOBT 2002 Colorectal Cancer Screening: Colonoscopy 2002 Colorectal Cancer Screening: Sigmoidoscopy 2002 Diabetes: Ophthalmology Exam 05/21/2023 Diabetes: Pedal Pulse Checked 05/21/2023 Diabetes: Sensory Foot Exam 05/21/2023 Diabetes: Visual Foot Exam 05/21/2023 Influenza Vaccine (#1) 2024 Diabetes: Hemoglobin A1C 08/20/2024 05/20/2024 Hepatitis B Vaccine Aged Out No longe r eligible based on patient's age to complete this topic Procedures Procedure Name Priority Date/Time Associated Diagnosis Comments EXT RESULT ENTRY Routine 05/20/2024 from Last 3 Months or Most Recently Relevant to Health Maintenance Results * (ABNORMAL) EXT RESULT ENTRY (05/20/2024) WBC 6.7 3.3 - 10.0 10*3/ML Red Blood Cell Count 4.92 Hemoglobin 13.9 12.0 - 16.0 Hematocrit 43.3 36.0 - 46.0 Platelets 290 150 - 399 10*3/UL MCV 88.0 82.0 - 108.0 Sodium 142 137 - 147 Potassium 4.4 3.4 - 5.5 Chloride 108.0 99.0 - 108.0 Anion Gap 12 <=30 MMOL/L BUN 27(A) 4 - 21 mg/dL Creatinine 1.37(A) 0.50 - 1.10 mg/dL Albumin 3.6 3.5 - 5.0 g/dL Calcium 9.6 8.7 - 10.7 mg/dL eGFR Non-Afr Prydeinig 38 Hemoglobin A1C 5.8 4.0 - 6.0 05/20/2024 Historical Provider LAB BLOOD ORDERABLES Darya l Result from Last 3 Months or Most Recently Relevant to Health Maintenance Insurance [facility] Care Teams Continuous Washer Operator Relationship Specialty Start Date End Date Indra Heaton MD [address] [place] [address] PCP - General Internal Medicine 03/05/23
== END 2024-12-12 12:51 | disposition home or self-care (01) ==
PROVIDERS: PCP Internal Medicine; Visit Provider Internal Medicine Cardiovascular Disease
DX: I48.91 Unspecified atrial fibrillation (principal); I42.9 Cardiomyopathy, unspecified; I77.89 Other specified disorders of arteries and arterioles
CPT/HCPCS: 93010; 99214

== ENCOUNTER → 2024-12-12 12:26 | Outpatient (BNVA) | payer OTHER, SELFPAY | PROVIDERS: PCP Internal Medicine; Visit Provider Internal Medicine Cardiovascular Disease | DX: I48.91 Unspecified atrial fibrillation (principal); I42.9 Cardiomyopathy, unspecified; I77.89 Other specified disorders of arteries and arterioles | CPT/HCPCS: 93005; 99212 ==

== ENCOUNTER 2025-04-13 07:53 | Outpatient (AMB) | payer OTHER, SELFPAY ==
--- OUTSIDE RECORDS SUMMARY | 2025-04-13 07:55 | XMS_ITS | Clinical Summary ---
Author Organization [facility] Facility Address [address] [address] Care Team Providers Care Clinical Research Spec Name Role Phone Indra Heaton MD Primary [...] 05/21/2023 Stage 3b chronic kidney disease 05/21/2023 Encounters Date Type Department Care Team Description 01/28/2025 Orders Only [facility] [address] [place] [id number] Jonn Guerra MD Stage 3b chronic kidney disease (HCC); Type 2 diabetes mellitus with diabetic chronic kidney disease (HCC); Essential (primary) hypertension from Last 3 Months Social History Tobacco Use Types Packs/Day Years [...] Comments Breast Cancer Screening 1955 Pneumococcal Vaccine: 50+ Ye ars (1 of 2 - PCV) [birth year]1972 Colorectal Cancer Screening: Annual FOBT 2002 Colorectal Cancer Screening: Colonoscopy 2002 Colorectal Cancer Screening: Sigmoidoscopy 2002 Diabetes: Ophthalmology Exam 05/21/2023 Diabetes: Pedal Pulse Checked 05/21/2023 Diabetes: Sensory Foot Exam 05/21/2023 Diabetes: Visual Foot Exam 05/21/2023 Diabetes: Hemoglobin A1C 08/20/2024 05/20/2024 Influenza Vaccine (Season Ended) 2025 Hepatitis B Vaccine Aged Out No longe [...] 9.6 8.7 - 10.7 mg/dL eGFR Non-Afr Libyan 38 Hemoglobin A1C 5.8 4.0 - 6.0 05/20/2024 Historical Provider LAB BLOOD ORDERABLES Darya l Result from Last 3 Months or Most Recently Relevant to Health Maintenance Insurance [facility] Care Teams Clinical Research Spec Relationship Specialty Start Date End Date Indra Heaton MD [address] , [address] [place] [address] PCP - General Internal Medicine 03/05/23
--- NOTE | 2025-04-13 08:09 | MHC.PC.OV ---
Vital Signs 04/13/25 08:10 Height 5 ft 9 in Weight 199 lb 2 oz BMI 29.4 BP 110/68 Blood Pressure Location Lt brachial Position Sitting Pulse 71 Pulse Source Pulse Oximeter Temp 97.1 F Temp Source Temporal Artery Scan Pulse Oximetry (%) 96 Oxygen Delivery Method Room Air Intake Visit Reasons: 6mth f/u Intake Note: Patient is here to follow up on DM, HTN, HLD. Biodiesel Product Manager Required: No Preparation Supervisor Canning: Present Accompanied by: Spouse Allergies onion [ONIONS] Allergy (Mild, Verified 04/13/25 08:10) ITCHING,HIVES Tobacco use date assessed: 04/13/25 Fall risk assessment: No Falls in past year Last assessed Fall Risk: 04/13/25 Dental Screening Dental Screen Date: 04/13/25 Did you have a dental visit in the last 12 months?: No Did you have a dental problem in the last 6 months where you did not have access to dental care?: No Was dental information given to patient?: Patient declined [facility] Medical History Sleep apnea History of cardioversion Obesity Hypertension Cardiomyopathy Hyperlipidemia Hypothyroidism Atrial fibrillation Heart failure Surgical History History of cataract surgery Hx of hernia repair History of incisional hernia repair History of esophagogastroduodenoscopy (EGD) H/O colonoscopy (~06/02/24) Family History Family/Other Medical history unknown Social History Housing: House Alcohol intake: current Alcohol intake frequency: does not drink Patient Tobacco Use Status: Former Tobacco user Tobacco use type: Cigarette e-Cigarette/Vaping Use: Never Used Second Hand Smoke Exposure: Yes service: No Current occupational status: retired Cognitive needs: Yes (cane/ transport chair) Hearing needs: No Vision needs: Yes (reading glasses) Questionnaire PHQ-9 Over the last 2 weeks, how often have you been bothered by any of the following problems? 1. Little interest or pleasure in doing things: not at all 2. Feeling down, depressed, or hopeless: not at all 3. Trouble falling or staying asleep, or sleeping too much: not at all 4. Feeling tired or having little energy: not at all 5. Poor appetite or overeating: not at all 6. Feeling bad about yourself - or that you are a failure or have let yourself or your family down: not at all 7. Trouble concentrating on things, such as reading the newspaper or watching television: not at all 8. Moving or speaking so slowly that other people could have noticed. Or the opposite - being so fidgety or restless that you have been moving around a lot more than usual: not at all 9. Thoughts that you would be better off or of hurting yourself in some way: not at all Total score: 0 Depression Screening Interpretation: Negative Depression Screening Done: Yes Source: Developed by Drs. Harpreet Quiñonez, Rochelle Domingo, Valentino Santana and colleagues, with an educational andrea from [employer]. Thrive Questionnaire Date Thrive assessed: 04/06/25 I am a: Patient What is your living situation today?: I have a steady place to live Within the past 12 months, did the food you bought not last and you didn't have the money to get more?: Never true Within the past 12 months, did you worry whether your food would run out before you got money to buy more?: Never true Do you have trouble paying for medicines?: No Do you have trouble getting transportation to medical appointments?: No Do you have trouble paying your heating and electricity bill?: No Do you have trouble taking care of your child, family member or friend?: No Do you have trouble with day-to-day activities such as bathing, preparing meals, shopping, managing finances, etc.?: No Are you currently unemployed and looking for a job?: No Are you interested in more education?: No Please select the resources that you would like help with: None Currently or been in a relationship where the following occur: No concerns reported THRIVE Score: 0 AUDIT C Alcohol Use Questionnaire (AUDIT-C) 1. How often do you have a drink containing alcohol?: Monthly or less 2. How many drinks containing alcohol do you have on a typical day when you are drinking?: 1 or 2 3. How often do you have six or more drinks on one occasion?: Never Total Score: 1 KRISTOFER-7 AMB Questionnaire KRISTOFER-7 Date KRISTOFER - 7 assessed: 04/13/25 Feeling nervous, anxious, or on edge: 1 = Several days Not being able to stop or control worryin = Several days Worrying too much about different things: 1 = Several days Trouble relaxin = Several days Being so restless that it is hard to sit still: 0 = Not at all Becoming easily annoyed or irritable: 0 = Not at all Feeling afraid as if something awful might happen: 1 = Several days Total KRISTOFER-7 score (0-4 normal; 5-9 mild; 10-14 moderate; 15-21 severe): 5 Source: Developed by Drs. Harpreet Quiñonez, Rochelle Domingo, Valentino Santana and colleagues, with an educational andrea from [employer]. Physical exam (Primary Care) Vital Signs: Last Vital Signs Temp 97.1 F 04/13/25 08:10 Pulse 71 04/13/25 08:10 BP 110/68 04/13/25 08:10 Pulse Ox 96 04/13/25 08:10 Oxygen Delivery Method Room Air 04/13/25 08:10 BMI result Body Mass Index 29.4 Tobacco/Smoking Status: Tobacco use Status Tobacco use date assessed 04/13/25 04/13/25 08:25 Patient Tobacco Use Status Former Tobacco user 04/13/25 08:25 Tobacco use type Cigarette 04/13/25 08:25 e-Cigarette/Vaping Use Never Used 04/13/25 08:25 PHQ-9: PHQ-9 Score PHQ-9: Total score 0 04/13/25 08:25 Depression Screening Interpretation: Negative Thrive Assessment: Date of Thrive Assessment Date Thrive assessed 04/06/25 04/13/25 08:25 Currently or been in a relationship where the following occur: No concerns reported Results AMB Hemoglobin A1c AMB Hemoglobin A1c 5.6 % Last Edit by ROCIO Schroeder on 04/13/25 08:27 Results Reviewed Results Reviewed: Laboratory Last Values Hgb A1c (Clinic) 5.6 % (4.0-6.0) 04/13/25 08:06 Coding Level of Care Code Est Pt Level 4 (09779) Complex EM visit Add On G2211 Diagnoses Hypertension I10 Assessment & Plan Assessment & Plan (1) Hypertension: Code(s): I10 - Essential (primary) hypertension Category: Medical Plan: BP is in range. Plan History of Present Illness - The patient is a 70-year-old female presenting with a medication issue. - She has been on Levothyroxine (Mylan brand) for thyroid management for several years, and the brand is no longer available. - Advised by her eye doctor to avoid changing medication brands. - Reports Type 2 Diabetes Mellitus with HbA1c at 6.8, indicating slightly high blood glucose levels. - Suffers from chronic arthritis with knee pain. - Describes a past incident of acute pain in the left big toe, followed by redness and lack of toenail growth, currently non-painful. Social History Review of Systems - Endocrine: Reports a thyroid disorder. - Musculoskeletal: Reports knee pain due to arthritis. - Endocrine: Reports Type 2 Diabetes Mellitus. - Dermatological: Reports a past episode of redness near the left big toe with no current pain. - Neurological: Denies current pain in the left big toe. Physical Exam General: Cooperative and healthy appearing Nutritional Appearance: Well nourished Orientation/consciousness: Patient oriented x3 Limitations: No limitations Head: Normal to inspection General: Appearance normal, both eyes and all related structures Neck: Normal visual inspection Chest: Normal palpation of entire chest wall Respiratory: N ormal respiratory effort Neurology: Patient oriented x3, reports past sensation of needle-like pain in left big toe, currently non-painful, with localized redness noted previously. Results - Labs: HbA1c level of 6.8 Plan 1. Thyroid Disorder - A new prescription for Levothyroxine will be provided, specifying no brand substitution. 2. Type 2 Diabetes Mellitus - Increase Metformin dosage to address elevated HbA1c. - Blood work ordered for monitoring and management adjustments. 3. Arthritis - Continue current pain management strategies and monitor symptoms. Discussion Notes During the consultation, I addressed the patient's concern about the discontinuation of the Mylan brand of Levothyroxine. I agreed to provide a prescription for a new brand, ensuring no substitution, to maintain medication consistency as advised by the patient's eye doctor. We discussed the slightly elevated HbA1c level, and I recommended increasing the Metformin dosage to improve glycemic control. Blood work will be ordered to monitor her diabetes management. For her arthritis, we discussed ongoing management and the need to report any changes in pain levels. The patient was informed of the benign nature of her toe issue, likely a local reaction, and reassured that it is not currently causing pain. Follow-up is scheduled for six months. Patient Instructions - Continue taking all prescribed medications as directed. - Monitor blood sugar levels at home and report any significant changes. - Follow the new Levothyroxine prescription instructions carefully. - Increase Metformin dosage as recommended. - Monitor knee pain and report any changes. - Schedule follow-up blood work as instructed. - Seek medical attention if new symptoms arise or existing symptoms worsen. Orders: Orders Basic Metabolic Panel Today I10 - Essential (primary) hypertension AMB Hemoglobin A1c Today E11.69 - Type 2 diabetes mellitus with other specified complication, E66.9 - Obesity, unspecified Complete Blood Count no Diff Today I10 - Essential (primary) hypertension Liver Panel Today I10 - Essential (primary) hypertension Lipid Panel Today I10 - Essential (primary) hypertension Thyroid Stimulating Hormone Today I10 - Essential (primary) hypertension UA and rflx microscopic Today I10 - Essential (primary) hypertension Medications: Changed From levothyroxine MYLAN BRAND ONLY 125 mcg PO QAM 90 days 90 tabs 3RF To levothyroxine 125 mcg PO QAM 90 tabs 1RF 90 days
[2025-04-13 08:10] VITALS: BP 110/68; PULSE 71; TEMP 36.2; O2SAT 96; BMI 29.4
== END 2025-04-13 08:44 | disposition home or self-care (01) ==
LOC: HO.HMCH 07:53
PROVIDERS: PCP Internal Medicine; Visit Provider Internal Medicine
DX: E11.69 Type 2 diabetes mellitus with other specified complication (principal); E66.9 Obesity, unspecified; Z68.29 Body mass index [BMI] 29.0-29.9, adult; I10 Essential (primary) hypertension

== ENCOUNTER → 2025-04-13 07:53 | Outpatient (BNVA) | payer OTHER, SELFPAY | PROVIDERS: PCP Internal Medicine; Visit Provider Internal Medicine | DX: I10 Essential (primary) hypertension (principal); E07.9 Disorder of thyroid, unspecified; E11.9 Type 2 diabetes mellitus without complications; Z79.899 Other long term (current) drug therapy | CPT/HCPCS: 83036; 96127; 99212 ==

== ENCOUNTER → 2025-06-07 10:27 | Outpatient (REF) | payer OTHER, SELFPAY ==
--- NOTE | 2025-06-07 10:33 | CA_ITS ---
Transthoracic Echocardiogram Patient (Last, First, Middle): Sunitha Santana, Gender: Female Date of : 1955 Age: 70 Procedure Date: 06/07/2025 Procedure Type: Transthoracic Echocardiogram Location: OP Height: 175.26 cm Weight: 90.27 kg BSA: 2.06 m2 Heart Rate: bpm BP: 114 / 65 mmHg Central Service Tech: /RC Referring MD: Abel Lopez MD Venue Coordinator: Abel Lopez MD Symptoms: I42.9 - Cardiomyopathy, unspecified Study Quality: Good ECG Rhythm: Atrial Fibrillation Conclusions: - 1. Normal LV ejection fraction of 60 65% 2. Severe biatrial enlargement 3. Mild mitral regurgitation 4. Normal RV systolic pressure 5. Mildly dilated ascending aorta at 4 cm 6. No gross pericardial effusion Findings Left Ventricle Normal left ventricular size, thickness, and systolic function. The visually estimated ejection fraction is between 60-65%. Diastolic function is indeterminate on the basis of available data. Right Ventricle Normal right ventricular cavity size and systolic function. Atria Severe biatrial enlargement. There is lipomatous hypertrophy of the interatrial septum. There is no evidence of interatrial shunt. Aortic Valve Normal aortic valve structure and function. There is no aortic valve stenosis. There is no aortic valve regurgitation. Mitral Valve There is mild anterior and posterior mitral leaflet thickening. There is mild mitral valve regurgitation. There is no mitral valve stenosis. Pulmonic Valve The pulmonic valve is likely normal. There is trace pulmonic valve regurgitation. Tricuspid Valve Normal tricuspid valve structure. There is mild tricuspid valve regurgitation. The right ventricular systolic pressure is normal. The right ventricular systolic pressure is 32 mmHg. Normal right atrial pressure. There is no evidence of pulmonary hypertension. Great Vessels The pulmonary artery was not well visualized. There is mild dilatation of the ascending aorta measuring 4.00 cm. Venous The inferior vena cava is normal in size and collapses greater than 50% with inspiration. Pericardium/Pleural There is no evidence of pericardial effusion. Prior Study Comparison No significant change compared to prior study dated: 05/30/2024. Measurements 2D Linear Measurements IVSd: 1.37 0.6-0.9/0.6-1.0 cm LVIDd: 4.04 3.9-5.3/4.2-5.9 cm LVIDd Index: 1.96 2.4-3.2/2.2-3.1 cm/m2 LVIDs: 2.63 2.0-3.6 cm LVPWd: 1.37 0.7-1.1 cm Ao Root: 3.40 2.1-3.5 cm LA Diam: 3.90 2.7-3.8/3.0-4.0 cm LAIDs Index: 1.89 1.5-2.3 cm/m2 LV Mass: 255.56 67-162/88-224 g LV Mass Index: 124.06 43-95/49-115 g/m2 LVOT Diam: 2.30 3.0+(-)1.3 cm Mitral Valve E'Lateral: 9.46 E'Medial: 6.53 PHT: 57.00 MVA PHT: 3.86 Aortic Valve AoV Pk Tacho: 1.22 AoV Mn Tacho: 0.77 AoV VTI: 0.20 AoV Pk Grad: 6.00 Aov Mn Grad: 3.00 KEIKO Cont.VTI: 2.32 LVOT LVOT Pk Tacho: 0.76 LVOT Mn Tacho: 0.43 LVOT VTI: 0.11 LVOT Pk Grad: 2.00 LVOT Mn Grad: 1.00 LVOT Diam: 2.30 LVOT Area: 4.15 Diastolic Function E'Medial: 6.53 E' Laterial: 9.46 Right Ventricle TAPSE (mm): 28.00 TVS' Tacho: 12.00 Tricuspid Valve TR Pk Tacho: 2.70 TR Pk Grad: 29.00 RA Press: 3.00 RVSP: 32.00 Great Vessels Aorta Ao Root-2D: 3.40 2.0-3.7 cm Ao Asc: 4.00 2.1-3.4 cm Pulmonary Valve PV Pk Tacho: 1.22 Peak PV Grad: 6.00 Updated in Other Vendor System with Status of Final Abel Lopez MD electronically signed on 06/07/2025 2:36:05 PM with status of Final
[2025-06-07 11:31] LABS: Hematocrit 38.8 % (37.0-47.0); Hemoglobin 12.5 g/dl (12.0-16.0); Mean Corpuscular HGB Conc 32.2 g/dl (31.0-35.0); Mean Corpuscular Hemoglobin 28.7 pg (27.0-33.0); Mean Corpuscular Volume 89.0 fL (80.0-98.0); NRBC Abs Auto 0.000 X10*3/uL (0.0-0.012); NRBC Pct Auto 0.0 /100WBC (0.0-0.2); Platelet Count 380 X10*3/uL (160-400); Red Blood Count 4.36 X10*6/uL (4.20-5.50); White Blood Count 9.8 X10*3/uL (4.8-10.8)
--- OUTSIDE RECORDS SUMMARY | 2025-06-07 11:34 | XMS_ITS | Clinical Summary ---
Author Organization [facility] Facility Address [address] [address] Care Team Providers Care Desk Maker Name Role Phone Indra Heaton MD Primary [...] Diabetes: Hemoglobin A1C 08/20/2024 05/20/2024 Influenza Vaccine (#1) 2025 Hepatitis B Vaccine Aged Out No [...] 9.6 8.7 - 10.7 mg/dL eGFR Non-Afr [place] 38 Hemoglobin A1C 5.8 4.0 - 6.0 05/20/2024 Historical Provider LAB BLOOD ORDERABLES Darya l Result from Last 3 Months or Most Recently Relevant to Health Maintenance Insurance [facility] Care Teams Desk Maker Relationship Specialty Start Date End Date Indra Heaton MD [address] [facility] [address] [place] [address] PCP - General Internal Medicine 03/05/23
--- OUTSIDE RECORDS SUMMARY | 2025-06-07 11:34 | XMS_ITS | Patient Health Record ---
Author Organization [facility] Address [address] [place] [address] Care Team Providers Care Engineering Geologist Name Role Phone ARI RENO Primary Care Provider Emerson Nagy Jr Unavailable SHEEBA WIGGINS Unavailable Unavailable Reason For Referral No Information Medications Medication SIG (Take, Route, Frequency, Duration) Notes Start Date End Date Status Multivitamin Adults - as directed Orally Active Omeprazole 40 MG 1 capsule Orally Onc e a day for 30 day(s) Active LORazepam 0.5 MG 1 tablet as needed Orally Once at hs and 1/2 tab as needed Active Fenofibrate 160 MG 1 tablet with food Orally Once a day for 30 day(s) Active Iron 325 (65 Fe) MG 1 tablet Orally Once a day for 30 day(s) Active Eliquis 5 MG as directed Orally t wice a day Active Probiotic - as directed Orally Active Lipitor 40 MG 1 tablet Orally Once a day for 30 day(s) Active metFORMIN HCl 1000 MG 1 tablet with a me al Orally twice a day Active Metoprolol Succinate 25 MG 1 capsule Ora lly twice a day Active Lasix 20 MG 1 tablet Orally Once a day for 30 day(s) Active Levothyroxine Sodium 125 MCG 1 tablet on an empty stomach in the morning Orally Once a day for 30 day(s) Active Immunizations Vaccine Route Administration Date Status Comme nts Influenza Unknown 07/17/2018 Administered Social History Tobacco Use: Social History Observation Description Date Details (start date - stop date) Former Smoker NA - NA Tobacco Use/Smoking Question Answer Notes Patient is a former smoker When did you stop smoking? 25 plus years Alcohol Screen Question Answer Notes Did you have a drink contain ing alcohol in the past year? Yes How often did you have a dri nk containing alcohol in the past year? Monthly or less (1 point) How many drinks did you have on a typical day when you were drinking in the past year? 1 or 2 drinks (0 point) How often did you have 6 or more drinks on one occasion in the past year? Never (0 point) Points 1 Interpretation Negative Plan Of Treatment No Information Insurance Providers Payer Name Payer Address Payer Phone Subscriber Number Group Number Insured Name Patient Relationship to Insured Coverage Start Date Coverage End Date [facility] (REFERRA L NEEDED) [address] [place] [phone] [id number] JORGE GRIMALDO Self - patient is the insured Medical (General) History Medical History History ICD Code Afib diabetes mellitus hypertension depression anxiety arthritis knees hx of bleeding ulcer c-diff 01/2019 Surgical History Surgery Date(Month/Year) section x2 hernia laperscopy x2 then 3rd hernia rep air
[2025-06-07 12:15] LABS: Digoxin 0.5 ng/mL (0.8-2.0)
[2025-06-07 12:22] LABS: Alanine Aminotransferase 15 U/L (0-31); Albumin Level 3.3 g/dL (3.5-5.0); Alkaline Phosphatase 62 U/L (39-117); Anion Gap 11 (12-20); Aspartate Amino Transferase 37 U/L (5-31); Blood Urea Nitrogen 52 mg/dL (9-16); Calcium 9.1 mg/dL (8.4-10.2); Carbon Dioxide 20 mmol/L (22-29); Chloride 114 mmol/L (96-108); Cholesterol 94 mg/dL (<200); Estimated Glomerular Filt Rate 30; HDL Cholesterol 32 mg/dL (>40); Potassium 5.1 mmol/L (3.3-5.1); Sodium 140 mmol/L (135-145); Total Protein 6.3 g/dL (6.5-8.0); Triglycerides 152 mg/dL (<150)
[2025-06-07 12:38] LABS: Thyroid Stimulating Hormone 1.15 uIU/mL (0.32-4.0)
== END ==
LOC: HO.CARD 10:27
PROVIDERS: Absent Provider Internal Medicine; PCP Internal Medicine; Visit Provider Internal Medicine Cardiovascular Disease
DX: I10 Essential (primary) hypertension (principal); I42.9 Cardiomyopathy, unspecified; I48.20 Chronic atrial fibrillation, unspecified
CPT/HCPCS: 36415; 80048; 80061; 80076; 80162; 84443; 85027; 93306

== ENCOUNTER → 2025-06-07 10:33 | Outpatient (BNV) | payer OTHER, SELFPAY | PROVIDERS: Absent Provider Internal Medicine; PCP Internal Medicine; Visit Provider Internal Medicine Cardiovascular Disease | DX: I51.7 Cardiomegaly (principal); I34.0 Nonrheumatic mitral (valve) insufficiency; I36.1 Nonrheumatic tricuspid (valve) insufficiency; I77.810 Thoracic aortic ectasia | CPT/HCPCS: 93306 ==

== ENCOUNTER 2025-06-12 13:29 | Outpatient (AMB) | payer OTHER, SELFPAY ==
[2025-06-12 13:31] VITALS: BP 120/80; PULSE 77; BMI 28.3
--- NOTE | 2025-06-12 13:31 | MHC.OFFVIS ---
Vital Signs 06/12/25 13:31 Height 5 ft 9 in Weight 191 lb 12.835 oz BMI 28.3 BP 120/80 Blood Pressure Location Lt brachial Position Sitting Pulse 77 Intake Visit Reasons: 6m follow up Intake Note: 6 month follow-up hearts doing ok c/o muscle pain statins Business Operations Coordinator Required: No Allergies onion (ONIONS) Allergy (Mild, Verified 04/13/25 08:10) ITCHING,HIVES Medication List - Last Reconciled 06/12/25 by Abel Lopez MD apixaban (Eliquis) 5 mg PO BID atorvastatin 40 mg PO DAILY betamethasone valerate 0.1% appl topical 2 times a day; blood sugar diagnostic (FreeStyle Lite Strips) test twice per day blood sugar diagnostic (FreeStyle Test strips) To check blood sugars twice a day carvedilol 3.125 mg PO BID digoxin 125 mcg PO .3x a week fenofibrate 160 mg PO DAILY furosemide 20 mg PO DAILY PRN L.ac,bul,par,rha-B.ani,alejandrina-inu 10 billion cell -100 mg (Probitoic Digestive Support (6 strain)) caps PO lancets (FreeStyle Lancets) To check blood sugars twice a day levothyroxine 125 mcg PO QAM 90 days lorazepam 1 mg PO BEDTIME PRN metformin 1,000 mg PO BID multivitamin (Daily Multi-Vitamin tablet) 1 tab PO DAILY valsartan 40 mg PO QPM HPI Comments Details: Sunitha comes for follow-up. Overall from heart perspective she has no clear complaints however she says that she has diffuse muscle aches and muscle weakness in the morning when she tries to get out of bed and thinks this is statin related. Her last LDL is 32 mg/dL. She has no orthopnea, PND, leg edema. Takes all her medications. No prolonged palpitation irregular heartbeat. Most recent echocardiogram shows preserved LV ejection fraction with mildly enlarged thoracic aorta with severe biatrial enlargement, unchanged from before. No bleeding issues or neurologic events. [facility] Medical History Sleep apnea History of cardioversion Obesity Hypertension Cardiomyopathy Hyperlipidemia Hypothyroidism Atrial fibrillation Heart failure Surgical History History of cataract surgery Hx of hernia repair History of incisional hernia repair History of esophagogastroduodenoscopy (EGD) H/O colonoscopy (~06/02/24) Family History Family/Other Medical history unknown Social History Housing: House Alcohol intake: current Alcohol intake frequency: does not drink Patient Tobacco Use Status: Former Tobacco user Tobacco use type: Cigarette e-Cigarette/Vaping Use: Never Used Second Hand Smoke Exposure: Yes service: No Current occupational status: retired Cognitive needs: Yes (cane/ transport chair) Hearing needs: No Vision needs: Yes (reading glasses) Review of Systems Const Denies chills, Denies fatigue, Denies fever(s), Denies frequent falls, Denies weakness, Denies weight gain and Denies weight loss ENT Denies dizziness Card Denies chest pain, Denies leg edema, Denies lightheadedness, Denies palpitations, Denies dyspnea, Denies dyspnea on exertion, Denies orthopnea and Denies other (loss of consciousness) Resp Denies cough, Denies dyspnea and Denies dyspnea on exertion GI Denies hematochezia and Denies change in stool character Musc Denies abnormal gait, Denies muscle weakness, Denies numbness, Denies radiating pain into limb and Denies tingling Neuro Denies abnormal gait, Denies dizziness, Denies frequent falls, Denies numbness, Denies tingling and Denies weakness Endo Denies fatigue and Denies palpitations Physical Exam Vital Signs: Last Vital Signs Pulse 77 06/12/25 13:31 BP 120/80 06/12/25 13:31 BMI result Body Mass Index 28.3 Const General: cooperative, comfortable, no acute distress, alert, awake and well groomed Nutritional Appearance: obese Orientation/consciousness: patient oriented x3 Limitations: ambulation with walker Neck Neck: Yes trachea midline, Yes supple and Yes no JVD Resp Effort & Inspection: normal respiratory effort Auscultation: clear to auscultation bilaterally Cardio Jugular venous distension: no JVD Rhythm: abnormal rhythm irregularly irregular Heart sounds: S1 normal heart sound present and S2 normal heart sound present GI Auscultation: normal bowel sounds Skin General skin exam: no rashes or lesions noted Neuro General: patient oriented x3 and no focal motor deficits Extrem General: Yes no clubbing, cyanosis or edema Psych Appearance: grossly normal Assessment & Plan Assessment & Plan (1) Cardiomyopathy: Comment: LVEF of 40-45% by echocardiogram, December 2020. Nonischemic most likely related to atrial fibrillation as well as untreated sleep apnea Code(s): I42.9 - Cardiomyopathy, unspecified Category: Medical Plan: Cardiomyopathy process with heart failure syndrome which is kind of suppressed currently with rate control with improved LV ejection fraction. Continue current aggressive rate control and continue neurohormonal modulation with carvedilol as well as valsartan. LV ejection fraction has improved. She is currently on low-dose diuretic therapy. Daily weight monitoring avoidance salt loading was discussed. Signs and symptoms of heart failure were discussed. Additional diuretics as need be. (2) Atrial fibrillation: Comment: Follows with Dr. Lopez Code(s): I48.91 - Unspecified atrial fibrillation Category: Medical Plan: Chronic rate control atrial fibrillation requiring dual therapy. She has significant biatrial enlargement and has failed rhythm control approach. Continue pursue rate control approach. Continue full oral anticoagulation, currently on Eliquis 5 mg b.i.d.. Semi annual digoxin assay as well as basic metabolic profile needs to be performed. (3) Enlarged thoracic aorta: Code(s): I77.89 - Other specified disorders of arteries and arterioles Category: Medical Plan: Mildly enlarged thoracic aorta. This has remained stable. No interventions required from surgical perspective. Continue aggressive blood pressure control which is currently well optimized. Follow up in 1 year's time. (4) Muscle ache: Code(s): M79.10 - Myalgia, unspecified site Plan: Patient was significant muscle weakness and muscle aches in the morning hours which she thinks might be related to statin therapy. I think this is probably related to her spine issues. However it is reasonable to give a statin holiday for 4 weeks to see if her symptoms improve. If her muscle symptoms improved with statin holiday will consider alternative therapy and/or lesser dose of statin therapy. Her target goal LDL is less than 100 mg/dL. Will follow up in the clinic in 6 months time, sooner p.r.n.. Thank you for allowing me to partake in her care Medications: Changed From digoxin 125 mcg PO DAILY 90 tabs 3RF To digoxin 125 mcg PO .3x a week Coding Level of Care Code Est Pt Level 4 (93403) Complex EM visit Add On G2211 Diagnoses Cardiomyopathy I42.9 Atrial fibrillation I48.91 Enlarged thoracic aorta I77.89 Muscle ache M79.10
--- OUTSIDE RECORDS SUMMARY | 2025-06-12 14:10 | XMS_ITS | Patient Health Record ---
Author Organization [facility] Address [address] [place] [address] Care Team Providers Care Distributor Of Directories Name Role Phone ARI RENO Primary Care Provider Emerson Nagy Jr Unavailable [phone] SHEEBA WIGGINS Unavailable Unavailable Reason For Referral [...] Insured Coverage Start Date Coverage End Date [facility] HEALTH PL[facility] (REFERRA L NEEDED) [address] [place] [phone] [id number] JORGE GRIMALDO Self - patient is the insured Medical (General) History Medical History History ICD Code Afib diabetes mellitus hypertension depression anxiety arthritis knees hx of bleeding ulcer c-diff 01/2019 Surgical History Surgery Date(Month/Year) section x2 hernia laperscopy x2 then 3rd hernia rep air
--- OUTSIDE RECORDS SUMMARY | 2025-06-12 14:10 | XMS_ITS | Clinical Summary ---
Author Organization [facility] Facility Address [address] [address] Care Team Providers Care Certified Family Mediator Name Role Phone Indra Heaton MD Primary [...] 9.6 8.7 - 10.7 mg/dL eGFR Non-Afr Ethiopian 38 Hemoglobin A1C 5.8 4.0 - 6.0 05/20/2024 Historical Provider LAB BLOOD ORDERABLES Darya l Result from Last 3 Months or Most Recently Relevant to Health Maintenance Insurance [facility] Care Teams Certified Family Mediator Relationship Specialty Start Date End Date Indra Heaton MD [address] [facility] [address] [place] [address] PCP - General Internal Medicine 03/05/23
== END 2025-06-12 14:57 | disposition home or self-care (01) ==
LOC: HO.HCS 13:30
PROVIDERS: PCP Internal Medicine; Visit Provider Internal Medicine Cardiovascular Disease
DX: I42.9 Cardiomyopathy, unspecified (principal); I48.91 Unspecified atrial fibrillation; I77.89 Other specified disorders of arteries and arterioles; M79.10 Myalgia, unspecified site
CPT/HCPCS: 99214

== ENCOUNTER 2025-06-12 13:29 | Outpatient (REF) | payer OTHER, SELFPAY ==
[2025-06-12 14:49] LABS: Appearance Urine Turbid; Glucose Urine UA Negative (Negative); PH 5.0 (5.0-9.0); Specific Gravity - Urine 1.015 (1.005-1.025); UMIC TRIGGER UA YES
[2025-06-12 14:59] LABS: Other Crystals Urine Present
== END 2025-06-12 13:30 | disposition home or self-care (01) ==
LOC: HO.LNP 13:29
PROVIDERS: PCP Internal Medicine; Visit Provider Internal Medicine Cardiovascular Disease
DX: I42.9 Cardiomyopathy, unspecified (principal); I48.91 Unspecified atrial fibrillation; M79.10 Myalgia, unspecified site; I77.89 Other specified disorders of arteries and arterioles; Z79.899 Other long term (current) drug therapy; Z79.01 Long term (current) use of anticoagulants
CPT/HCPCS: 81001; 99212

== ENCOUNTER 2025-08-16 10:37 | Outpatient (AMB) | payer OTHER, SELFPAY ==
--- NOTE | 2025-08-16 10:57 | MHC.PC.OV ---
Vital Signs 08/16/25 10:59 Height 5 ft 9 in Weight 194 lb BMI 28.6 BP 130/60 Blood Pressure Location Lt brachial Position Sitting Pulse 70 Pulse Source Pulse Oximeter Temp 96.9 F Temp Source Temporal Artery Scan Pulse Oximetry (%) 97 Oxygen Delivery Method Room Air Intake Visit Reasons: follow up Intake Note: Patient is here to follow up on DM, HTN, HLD. Prorate Clerk Required: No Battery Container Finishing Hand: Present Accompanied by: Spouse Allergies onion (ONIONS) Allergy (Mild, Verified 08/16/25 10:59) ITCHING,HIVES Tobacco use date assessed: 08/16/25 Fall risk assessment: No Falls in past year Last assessed Fall Risk: 08/16/25 Dental Screening Dental Screen Date: 04/13/25 [facility] Medical History Sleep apnea History of cardioversion Obesity Hypertension Cardiomyopathy Hyperlipidemia Hypothyroidism Atrial fibrillation Heart failure Surgical History History of cataract surgery Hx of hernia repair History of incisional hernia repair History of esophagogastroduodenoscopy (EGD) H/O colonoscopy (~06/02/24) Family History Family/Other Medical history unknown Social History Housing: House Alcohol intake: current Alcohol intake frequency: does not drink Patient Tobacco Use Status: Former Tobacco user Tobacco use type: Cigarette e-Cigarette/Vaping Use: Never Used Second Hand Smoke Exposure: Yes service: No Current occupational status: retired Cognitive needs: Yes (cane/ transport chair) Hearing needs: No Vision needs: Yes (reading glasses) Questionnaire Thrive Questionnaire Date Thrive assessed: 04/06/25 I am a: Patient What is your living situation today?: I have a steady place to live Within the past 12 months, did the food you bought not last and you didn't have the money to get more?: Never true Within the past 12 months, did you worry whether your food would run out before you got money to buy more?: Never true Do you have trouble paying for medicines?: No Do you have trouble getting transportation to medical appointments?: No Do you have trouble paying your heating and electricity bill?: No Do you have trouble taking care of your child, family member or friend?: No Do you have trouble with day-to-day activities such as bathing, preparing meals, shopping, managing finances, etc.?: No Are you currently unemployed and looking for a job?: No Are you interested in more education?: No Please select the resources that you would like help with: None Currently or been in a relationship where the following occur: No concerns reported THRIVE Score: 0 KRISTOFER-7 AMB Questionnaire KRISTOFER-7 Date KRISTOFER - 7 assessed: 04/13/25 Source: Developed by Drs. Harpreet Quiñonez, Rochelle Domingo, Valentino Santana and colleagues, with an educational andrea from [employer]. Physical exam (Primary Care) Tobacco/Smoking Status: Tobacco use Status Tobacco use date assessed 04/13/25 04/13/25 08:25 Patient Tobacco Use Status Former Tobacco user 04/13/25 08:25 Tobacco use type Cigarette 04/13/25 08:25 e-Cigarette/Vaping Use Never Used 04/13/25 08:25 Thrive Assessment: Date of Thrive Assessment Date Thrive assessed 04/06/25 06/05/25 13:29 Currently or been in a relationship where the following occur: No concerns reported Results AMB Hemoglobin A1c AMB Hemoglobin A1c 5.4 % Last Edit by ROCIO Schroeder on 08/16/25 11:29 Coding Assessment & Plan Assessment & Plan Orders: Orders AMB Hemoglobin A1c Today E11.69 - Type 2 diabetes mellitus with other specified complication, E66.9 - Obesity, unspecified
[2025-08-16 10:59] VITALS: BP 130/60; PULSE 70; TEMP 36.1; O2SAT 97; BMI 28.6
--- OUTSIDE RECORDS SUMMARY | 2025-08-16 12:12 | XMS_ITS | Patient Health Record ---
Author Organization [facility] Address [address] [place] [address] Care Team Providers Care Assistant Spa Manager Name Role Phone ARI RENO Primary Care [...] Insured Coverage Start Date Coverage End Date [facility] HEALTH PLAN (REFERRA L NEEDED) [address] [place] [phone] [id number] JORGE GRIMALDO Self - patient is the insured Medical (General) History Medical History History ICD Code Afib diabetes mellitus hypertension depression anxiety arthritis knees hx of bleeding ulcer c-diff 01/2019 Surgical History Surgery Date(Month/Year) section x2 hernia laperscopy x2 then 3rd hernia rep air
--- OUTSIDE RECORDS SUMMARY | 2025-08-16 12:12 | XMS_ITS | Clinical Summary ---
Author Organization [facility] Facility Address [address] [address] Care Team Providers Care Environmental Health Inspector Name Role Phone Indra Heaton MD Primary [...] 9.6 8.7 - 10.7 mg/dL eGFR Non-Afr Spanish 38 Hemoglobin A1C 5.8 4.0 - 6.0 05/20/2024 Historical Provider LAB BLOOD ORDERABLES Darya l Result from Last 3 Months or Most Recently Relevant to Health Maintenance Insurance [facility] Care Teams Environmental Health Inspector Relationship Specialty Start Date End Date Indra Heaton MD [address] [facility] [address] [place] [address] PCP - General Internal Medicine 03/05/23
== END 2025-08-16 11:44 | disposition home or self-care (01) ==
LOC: HO.HMCH 10:38
PROVIDERS: PCP Internal Medicine; Visit Provider Internal Medicine
DX: E11.69 Type 2 diabetes mellitus with other specified complication (principal); E66.9 Obesity, unspecified

== ENCOUNTER → 2025-08-16 10:37 | Outpatient (BNVA) | payer OTHER, SELFPAY | PROVIDERS: PCP Internal Medicine; Visit Provider Internal Medicine | DX: E11.69 Type 2 diabetes mellitus with other specified complication (principal); E66.9 Obesity, unspecified; I50.9 Heart failure, unspecified; Z68.28 Body mass index [BMI] 28.0-28.9, adult | CPT/HCPCS: 83036; 99212 ==

== ENCOUNTER 2025-08-31 11:42 | Outpatient (REF) | payer OTHER, SELFPAY ==
--- NOTE | ~2025-08-31 | MM_ITS ---
EXAMINATION: MM SCREENING DIGITAL BREAST TOMOSYNTHESIS, BILATERAL CLINICAL INFORMATION: Screening. Asymptomatic. COMPARISON: August 25, 2024 and April 08, 2023 TECHNIQUE: Digital breast tomosynthesis is performed in mediolateral oblique and craniocaudal views along with computer-aided detection (CAD). Synthesized 2D images are generated from the tomosynthesis. Best possible images according to technologist's notes. FINDINGS: BREAST COMPOSITION: The breasts are heterogeneously dense, which may obscure small masses. BILATERAL BREASTS: No significant masses, suspicious calcifications or other abnormalities are seen in either breast. MM/MM tomosynthesis screening BI IMPRESSION: BILATERAL BREASTS: Negative, no mammographic evidence of malignancy. Normal interval follow-up is recommended in 12 months. ASSESSMENT: BI-RADS: Category 1: Negative RECOMMENDATION: Routine annual mammography screening. FOLLOW-UP: 1 year F/U This examination should not preclude the clinical evaluation of a suspicious palpable abnormality. This patient's information was entered into a reminder system with a target due date for their next mammogram. Electronically signed by: Ajay Trinidad MD 09/03/2025 01:02 PM EDT
== END 2025-08-31 11:43 | disposition home or self-care (01) ==
LOC: HO.HKASLDS 11:42
PROVIDERS: PCP Internal Medicine; Visit Provider Internal Medicine
DX: Z12.31 Encounter for screening mammogram for malignant neoplasm of breast (principal)
CPT/HCPCS: 77063; 77067

== ENCOUNTER → 2025-08-31 12:00 | Outpatient (BNV) | payer OTHER, SELFPAY | PROVIDERS: PCP Internal Medicine; Visit Provider Radiology Body Imaging | DX: Z12.31 Encounter for screening mammogram for malignant neoplasm of breast (principal) | CPT/HCPCS: 77063; 77067 ==

== ENCOUNTER 2025-09-27 13:17 | Outpatient (AMB) | payer OTHER, SELFPAY ==
--- NOTE | 2025-09-27 13:21 | MHC.PC.OV ---
Vital Signs 09/27/25 13:22 Height 5 ft 9 in Weight 191 lb 2 oz BMI 28.2 BP 130/70 Blood Pressure Location Lt brachial Position Sitting Pulse 67 Pulse Source Pulse Oximeter Temp 96.9 F Temp Source Temporal Artery Scan Pulse Oximetry (%) 98 Oxygen Delivery Method Room Air Intake Visit Reasons: 6mth f/u Intake Note: Patient is here to follow up on DM, HTN, HLD. Assistant Customer Service Manager Required: No Organ Pipe Voicer: Not Required per policy Accompanied by: Self / Same As Patient Allergies onion (ONIONS) Allergy (Mild, Verified 09/27/25 13:22) ITCHING,HIVES Tobacco use date assessed: 09/27/25 Fall risk assessment: No Falls in past year Last assessed Fall Risk: 09/27/25 Dental Screening Dental Screen Date: 04/13/25 [facility] Medical History (Updated 09/27/25 @ 13:50 by Indra Heaton MD) Osteoarthritis Sleep apnea History of cardioversion Obesity Hypertension Cardiomyopathy Hyperlipidemia Hypothyroidism Atrial fibrillation Heart failure Surgical History History of cataract surgery Hx of hernia repair History of incisional hernia repair History of esophagogastroduodenoscopy (EGD) H/O colonoscopy (~06/02/24) Family History Family/Other Medical history unknown Social History Housing: House Alcohol intake: current Alcohol intake frequency: does not drink Patient Tobacco Use Status: Former Tobacco user Tobacco use type: Cigarette e-Cigarette/Vaping Use: Never Used Second Hand Smoke Exposure: Yes service: No Current occupational status: retired Cognitive needs: Yes (cane/ transport chair) Hearing needs: No Vision needs: Yes (reading glasses) Questionnaire Thrive Questionnaire Date Thrive assessed: 04/06/25 I am a: Patient What is your living situation today?: I have a steady place to live Within the past 12 months, did the food you bought not last and you didn't have the money to get more?: Never true Within the past 12 months, did you worry whether your food would run out before you got money to buy more?: Never true Do you have trouble paying for medicines?: No Do you have trouble getting transportation to medical appointments?: No Do you have trouble paying your heating and electricity bill?: No Do you have trouble taking care of your child, family member or friend?: No Do you have trouble with day-to-day activities such as bathing, preparing meals, shopping, managing finances, etc.?: No Are you currently unemployed and looking for a job?: No Are you interested in more education?: No Please select the resources that you would like help with: None Currently or been in a relationship where the following occur: No concerns reported THRIVE Score: 0 KRISTOFER-7 AMB Questionnaire KRISTOFER-7 Date KRISTOFER - 7 assessed: 04/13/25 Source: Developed by Drs. Harpreet Quiñonez, Rochelle Domingo, Valentino Santana and colleagues, with an educational andrea from [employer]. Physical exam (Primary Care) Vital Signs: Last Vital Signs Temp 96.9 F 09/27/25 13:22 Pulse 67 09/27/25 13:22 BP 130/70 09/27/25 13:22 Pulse Ox 98 09/27/25 13:22 Oxygen Delivery Method Room Air 09/27/25 13:22 BMI result Body Mass Index 28.2 Tobacco/Smoking Status: Tobacco use Status Tobacco use date assessed 09/27/25 09/27/25 13:25 Patient Tobacco Use Status Former Tobacco user 09/27/25 13:25 Tobacco use type Cigarette 09/27/25 13:25 e-Cigarette/Vaping Use Never Used 09/27/25 13:25 Thrive Assessment: Date of Thrive Assessment Date Thrive assessed 04/06/25 09/27/25 13:25 Currently or been in a relationship where the following occur: No concerns reported Coding Level of Care Code Est Pt Level 4 (83868) Complex EM visit Add On G2211 Diagnoses Osteoarthritis M19.90 Assessment & Plan Assessment & Plan (1) Osteoarthritis: Code(s): M19.90 - Unspecified osteoarthritis, unspecified site Category: Medical Plan: History of Present Illness - The patient is a 70-year-old female presenting for a follow-up on osteoarthritis management, which was previously presenting as ramirez splints. - She has been taking Tylenol 1000 mg at bedtime, which has resulted in some improvement in her pain, noting she no longer cries from pain in the morning. - The pain is ongoing but better, and she now notes the pain is more in her hip area. - The patient self-discontinued atorvastatin in mid-summer due to concerns about muscle weakness. - She feels that her muscle mass in her legs is returning since stopping the medication. - Her medication history includes Eliquis. - For preventative care, the patient reports she has received both her flu and COVID-19 vaccinations. Social History - Exercise: The patient was advised to start a daily routine of stretching and exercises. Review of Systems - Musculoskeletal: Reports improved but persistent pain, previously in the shins and now more in the hip area. - Reports past muscle weakness, which she feels is resolving with a return of muscle mass to her legs after stopping atorvastatin. Physical Exam General: Cooperative and healthy appearing Nutritional Appearance: Well nourished Orientation/consciousness: Patient oriented x3 Limitations: No limitations Head: Normal to inspection General: Appearance normal, both eyes and all related structures Neck: Normal visual inspection Chest: Normal palpation of entire chest wall Respiratory: Normal respiratory effort Neurology: Patient oriented x3 Results Plan - For osteoarthritis, the patient will continue taking Tylenol 1000 mg at night. - The patient is encouraged to perform daily stretching for 10-15 minutes and to use a heating pad. - Physical therapy was offered, but the patient deferred for now. - A fasting lipid panel will be ordered to check cholesterol levels before considering the resumption of atorvastatin. - The patient will follow up at her regularly scheduled appointment next month to review the blood work. - Advised to add Advil 200 mg on an as-needed basis for breakthrough pain. Discussion Notes I confirmed with the patient that her ramirez pain is due to osteoarthritis. We discussed that her current regimen of Tylenol has provided partial but not complete relief. I recommended she can add a small, [id number] dose of Advil 200 mg as needed, and we discussed that while this carries a small increased risk of bleeding with her Eliquis, the low dose is acceptable. I stressed that daily stretching and using a heating pad are as important as medication for her symptom management. Regarding her decision to stop atorvastatin due to perceived muscle weakness, I agreed to order a fasting lipid panel to reassess her cholesterol levels before deciding on restarting the statin. We agreed she will keep her appointment next month to review these lab results. Patient Instructions - Continue to take Tylenol 1000 mg every night before you go to bed. - If your pain is not well-controlled, you may add one Advil 200 mg tablet as needed, but do not take more than one per day. - It is very important to start a daily stretching routine for 10-15 minutes. You can also use a heating pad on the painful areas. - Please go to the lab for a fasting blood test to check your cholesterol levels. This means you should not eat or drink anything except water for 8-12 hours before the test. - Keep your regularly scheduled appointment for next month, where we will discuss your lab results.
[2025-09-27 13:22] VITALS: BP 130/70; PULSE 67; TEMP 36.1; O2SAT 98; BMI 28.2
--- OUTSIDE RECORDS SUMMARY | 2025-09-27 16:04 | XMS_ITS | Clinical Summary ---
Author Organization [facility] Facility Address [address] [address] Care Team Providers Care Arabic Linguist Name Role Phone Indra Heaton MD Primary [...] 9.6 8.7 - 10.7 mg/dL eGFR Non-Afr Malaysian 38 Hemoglobin A1C 5.8 4.0 - 6.0 05/20/2024 Historical Provider LAB BLOOD ORDERABLES Darya l Result from Last 3 Months or Most Recently Relevant to Health Maintenance Insurance [facility] Care Teams Arabic Linguist Relationship Specialty Start Date End Date Indra Heaton MD [address] [facility] [address] [place] [address] PCP - General Internal Medicine 03/05/23
--- OUTSIDE RECORDS SUMMARY | 2025-09-27 16:04 | XMS_ITS | Patient Health Record ---
Author Organization [facility] Address [address] [place] [address] Care Team Providers Care Photographer Helper Name Role Phone ARI RENO Primary Care Provider Emerson Nagy Jr Unavailable [phone] SHEEBA WIGGINS Unavailable Unavailable Reason For Referral No Information Medications Medication SIG (Take, Route, Frequency, Duration) Notes Start Date End Date Status Multivitamin Adults - as directed Orally Active Omeprazole 40 MG 1 capsule Orally Onc e a day; Duration: 30 day(s) Active LORazepam 0.5 MG 1 tablet as needed Orally Once at hs and 1/2 tab as needed Active Fenofibrate 160 MG 1 tablet with food Orally Once a day; Duration: 30 day(s) Active Iron 325 (65 Fe) MG 1 tablet Orally Once a day; Duration: 30 day(s) Active Eliquis 5 MG as directed Orally t wice a day Active Probiotic - as directed Orally Active Lipitor 40 MG 1 tablet Orally Once a day; Duration: 30 day(s) Active metFORMIN HCl 1000 MG 1 tablet with a me al Orally twice a day Active Metoprolol Succinate 25 MG 1 capsule Ora lly twice a day Active Lasix 20 MG 1 tablet Orally Once a day; Duration: 30 day(s) Active Levothyroxine Sodium 125 MCG 1 tablet on an empty stomach in the morning Orally Once a day; Duration: 30 day(s) Active Immunizations Vaccine Route Administration [...] Insured Coverage Start Date Coverage End Date [facility] HEALTH PLAN (REFERRA L NEEDED) [address] [place] [phone] [id number] JORGE GRIMALDO Self - patient is the insured Medical (General) History Medical History History ICD Code Afib diabetes mellitus hypertension depression anxiety arthritis knees hx of bleeding ulcer c-diff 01/2019 Surgical History Surgery Date(Month/Year) section x2 hernia laperscopy x2 then 3rd hernia rep air
== END 2025-09-27 13:48 | disposition home or self-care (01) ==
LOC: HO.HMCH 13:18
PROVIDERS: PCP Internal Medicine; Visit Provider Internal Medicine
DX: M19.90 Unspecified osteoarthritis, unspecified site (principal)

== ENCOUNTER → 2025-09-27 13:17 | Outpatient (BNVA) | payer OTHER, SELFPAY | PROVIDERS: PCP Internal Medicine; Visit Provider Internal Medicine | DX: M16.9 Osteoarthritis of hip, unspecified (principal); Z87.891 Personal history of nicotine dependence; Z79.01 Long term (current) use of anticoagulants | CPT/HCPCS: 99212 ==

== ENCOUNTER 2025-10-27 09:58 | Outpatient (REF) | payer OTHER, SELFPAY ==
[2025-10-27 14:24] LABS: Cholesterol 146 mg/dL (<200); HDL Cholesterol 51 mg/dL (>40); Triglycerides 113 mg/dL (<150)
== END 2025-10-27 09:59 | disposition home or self-care (01) ==
LOC: HO.HMGCLDS 09:58
PROVIDERS: PCP Internal Medicine; Visit Provider Internal Medicine
DX: I10 Essential (primary) hypertension (principal)
CPT/HCPCS: 36415; 80061

== ENCOUNTER 2025-11-02 09:54 | Outpatient (AMB) | payer OTHER, SELFPAY ==
--- NOTE | 2025-11-02 10:45 | A.OFFPC_ITS ---
Vital Signs 11/02/25 10:55 Height 5 ft 9 in Weight 188 lb 6 oz BMI 27.8 BP 136/76 Blood Pressure Location Lt brachial Position Sitting Respiration 14 Pulse 71 Temp 96.6 F L Temp Source Temporal Artery Scan Oxygen Delivery Method Room Air Intake Visit Reasons: 6mth f/u Intake Note: Patient is here to follow up on DM. Supervisor Files Required: No Automation Qa Lead: Present Accompanied by: Spouse Allergies onion (ONIONS) Allergy (Mild, Verified 11/02/25 11:13) ITCHING,HIVES Medication List - Last Reconciled 11/02/25 by Indra Heaton MD apixaban (Eliquis) 5 mg PO BID betamethasone valerate 0.1% appl topical 2 times a day; blood sugar diagnostic (FreeStyle Lite Strips) test twice per day blood sugar diagnostic (FreeStyle Test strips) To check blood sugars twice a day carvedilol 3.125 mg PO BID digoxin 125 mcg PO .3x a week fenofibrate 160 mg PO DAILY furosemide 20 mg PO DAILY PRN L.ac,bul,par,rha-B.ani,alejandrina-inu 10 billion cell -100 mg (Probitoic Digestive Support (6 strain)) caps PO lancets (FreeStyle Lancets) To check blood sugars twice a day levothyroxine 125 mcg PO QAM 90 days lorazepam 1 mg PO BEDTIME PRN metformin 1,000 mg PO BID multivitamin (Daily Multi-Vitamin tablet) 1 tab PO DAILY valsartan 40 mg PO QPM Tobacco use date assessed: 11/02/25 Fall risk assessment: No Falls in past year Last assessed Fall Risk: 11/02/25 Dental Screening Dental Screen Date: 04/13/25 HPI HPI Comments History of Present Illness Details History of Present Illness - The patient is a 70-year-old female pr esenting for a follow-up visit regarding her chronic conditions, including osteoarthritis and a history of ramirez splints, last seen on September 27. - She reports her osteoarthritis symptom s are about the same and takes Tylenol at bedtime, which provides some relief. - She experiences intermittent back pain , particularly in the morning, which improves with the use of heating pads. - The patient has discontinued her stati n medication. - A review of her current medications co nfirms she takes a blood thinner twice daily, carvedilol twice daily, digoxin three times a week, fenofibrate once daily, furosemide as needed, levothyroxine daily, lorazepam rarely, and metformin twice daily. - She notes that her pharmacy is having difficulty obtaining her brand-name levothyroxine. - The patient is due for a follow-up wit h a consulting property manager and was previously under the care of Dr. Guerra. - She requested a referral to an [facility] kidney specialist to consolidate her care. Social History - Exercise: The patient has a seated exe rcise machine that she intends to start using. Results - Labs: Recent blood work performed last week showed normal liver function tests and was otherwise unremarkable. [facility] Medical History (Updated 09/27/25 @ 13:50 by Indra Heaton MD) Osteoarthritis Sleep apnea History of cardioversion Obesity Hypertension Cardiomyopathy Hyperlipidemia Hypothyroidism Atrial fibrillation Heart failure Surgical History History of cataract surgery Hx of hernia repair History of incisional hernia repair History of esophagogastroduodenoscopy (EGD) H/O colonoscopy (~06/02/24) Family History Family/Other Medical history unknown Social History Housing: House Alcohol intake: current Alcohol intake frequency: does not drink Patient Tobacco Use Status: Former Tobacco user Tobacco use type: Cigarette e-Cigarette/Vaping Use: Never Used Second Hand Smoke Exposure: Yes service: No Current occupational status: retired Cognitive needs: Yes (cane/ transport chair) Hearing needs: No Vision needs: Yes (reading glasses) Questionnaire Thrive Questionnaire Date Thrive assessed: 04/06/25 I am a: Patient What is your living situation today?: I have a steady place to live Within the past 12 months, did the food you bought not last and you didn't have the money to get more?: Never true Within the past 12 months, did you worry whether your food would run out before you got money to buy more?: Never true Do you have trouble paying for medicines?: No Do you have trouble getting transportation to medical appointments?: No Do you have trouble paying your heating and electricity bill?: No Do you have trouble taking care of your child, family member or friend?: No Do you have trouble with day-to-day activities such as bathing, preparing meals, shopping, managing finances, etc.?: No Are you currently unemployed and looking for a job?: No Are you interested in more education?: No Please select the resources that you would like help with: None Currently or been in a relationship where the following occur: No concerns reported THRIVE Score: 0 KRISTOFER-7 AMB Questionnaire KRISTOFER-7 Date KRISTOFER - 7 assessed: 04/13/25 Source: Developed by Drs. Harpreet Quiñonez, Rochelle Domingo, Valentino Santana and colleagues, with an educational andrea from [employer]. Review of Systems Narrative Review of Systems - Constitutional: Reports feeling good overall but notes that some days are better than others. - Musculoskeletal: Reports ongoing pain from osteoarthritis, described as about the same. - Reports back pain in the morning that is alleviated with heating pads. Physical exam (Primary Care) Vital Signs: Last Vital Signs Temp 96.6 F L 11/02/25 10:55 Pulse 71 11/02/25 10:55 Resp 14 11/02/25 10:55 BP 136/76 11/02/25 10:55 Oxygen Delivery Method Room Air 11/02/25 10:55 BMI result Body Mass Index 27.8 Tobacco/Smoking Status: Tobacco use Status Tobacco use date assessed 11/02/25 11/02/25 11:03 Patient Tobacco Use Status Former Tobacco user 11/02/25 10:46 Tobacco use type Cigarette 11/02/25 10:46 e-Cigarette/Vaping Use Never Used 11/02/25 10:46 Thrive Assessment: Date of Thrive Assessment Date Thrive assessed 04/06/25 11/02/25 10:46 Currently or been in a relationship where the following occur: No concerns reported Narrative Physical Exam General: Cooperative and healthy appearing Nutritional Appearance: Well nourished Orientation/consciousness: Patient oriented x3 Limitations: No limitations Head: Normal to inspection General: Appearance normal, both eyes and all related structures Neck: Normal visual inspection Chest: Normal palpation of entire chest wall Respiratory: Normal respiratory effort Neurology: Patient oriented x3 Coding Level of Care Code Est Pt Level 4 (59187) Add On Problem Visit Only Diagnoses Chronic kidney disease N18.9 Assessment & Plan Assessment & Plan (1) Chronic kidney disease: Code(s): N18.9 - Chronic kidney disease, unspecified Plan: Referral for [facility]. Does not want to see Dr Guerra's group anymore. Plan Plan - Discontinue statin therapy. - Continue all other current medications as prescribed. - For osteoarthritis, continue Tylenol at bedtime and utilize non-pharmacologic interventions such as heating pads, stretching, and a seated exercise machine. - A referral will be placed to an in-house consulting property manager for ongoing kidney care; the office will contact the patient to schedule this appointment. - Repeat blood work at the next follow-up visit. Discussion Notes I reviewed the patient's current medications and a recent set of labs. I confirmed that her liver function tests were normal and advised her to continue the discontinuation of her statin, as it is no longer necessary. We discussed management strategies for her osteoarthritis, reinforcing the use of Tylenol, heating pads, and stretching. I supported her request to see one of our own nephrologists for continuity of care and will place the referral. I advised that we will recheck her blood work at her next visit. Patient Instructions - You may stop taking your statin medication for cholesterol. - Continue taking all of your other prescribed medications. - For your arthritis pain, you can keep taking Tylenol at bedtime. - Try using heating pads, doing stretching exercises, and using your seated exercise machine to help with pain. - We will put in a referral for you to see our kidney specialist. - Our office will call you to schedule this appointment. - Your recent blood work was normal; we will check it again at your next visit. Orders: Referrals Nephrology Referral N18.9 - Chronic kidney disease, unspecified Medications: Discontinued atorvastatin Discontinued Reason: Doctor's Order 40 mg PO DAILY 90 tabs 3RF
[2025-11-02 10:55] VITALS: BP 136/76; PULSE 71; RESP 14; TEMP 35.9; BMI 27.8
--- OUTSIDE RECORDS SUMMARY | 2025-11-02 12:09 | XMS_ITS | Clinical Summary ---
Author Organization [facility] Facility Address [address] [address] Care Team Providers Care Line Builder Name Role Phone Indra Heaton MD Primary [...] 9.6 8.7 - 10.7 mg/dL eGFR Non-Afr [place] 38 Hemoglobin A1C 5.8 4.0 - 6.0 05/20/2024 Historical Provider LAB BLOOD ORDERABLES Darya l Result from Last 3 Months or Most Recently Relevant to Health Maintenance [facility] Care Teams Line Builder Relationship Specialty Start Date End Date Indra Heaton MD [address] [facility] [address] [place] [address] PCP - General Internal Medicine 03/05/23
--- OUTSIDE RECORDS SUMMARY | 2025-11-02 12:09 | XMS_ITS | Patient Health Record ---
Author Organization [facility] Address [address] [place] [address] Care Team Providers Care Sales Market Leader Name Role Phone ARI RENO Primary Care Provider Emerson Nagy Jr Unavailable SHEEBA WIGGINS Unavailable Unavailable Reason For Referral No Information Medications Medication SIG (Take, Route, Frequency, Duration) Notes Start Date End Date Status Multivitamin Adults - Tablet as directed Orally Active Omeprazole 40 MG Capsule Delayed Release 1 capsule Orally Once a day; Duration: 30 day(s) Active LORazepam 0.5 MG Tablet 1 tablet as need ed Orally Once at hs and 1/2 tab as needed Active Fenofibrate 160 MG Tablet 1 tablet with food Orally Once a day; Duration: 30 day(s) Active Iron 325 (65 Fe) MG Tablet 1 tablet Oral ly Once a day; Duration: 30 day(s) Active Eliquis 5 MG Tablet as directed Orally t wice a day Active Probiotic - Tablet Delayed Release as directed Orally Active Lipitor 40 MG Tablet 1 tablet Orally Onc e a day; Duration: 30 day(s) Active metFORMIN HCl 1000 MG Tablet 1 tablet wi th a meal Orally twice a day Active Metoprolol Succinate 25 MG Capsule ER 24 Hour Sprinkle 1 capsule Orally twice a day Active Lasix 20 MG Tablet 1 tablet Orally Once a day; Duration: 30 day(s) Active Levothyroxine Sodium 125 MCG Tablet 1 tablet on an empty stomach in the morning Orally Once a day; Duration: 30 day(s) Active Immunizations Vaccine Route Administration Date Status Comme nts Influenza Unknown 07/17/2018 Administered Social History Tobacco Use: Social History Observation Description Date Details (start date - stop date) Former Smoker NA - NA Social History Drugs/Alcohol: Social Info Question Answer Notes Alcohol Screen Did you have a drink containing alcohol in the past year? Yes How often did you have a drink containing alcohol in the past year? Monthly or less (1 point) How many drinks did you have on a typical day when you were drinking in the past year? 1 or 2 drinks (0 point) How often did you have 6 or more drinks on one occasion in the past year? Never (0 point) Points 1 Interpretation Negative Tobacco Use: Social Info Question Answer Notes Tobacco Use/Smoking Patient is a former smoker When did you stop smoking? 25 plus years Additional Details Category Social Info Options Details Miscellaneous: Marital status: Occupation: retired Plan Of Treatment No Information Insurance Providers Payer Name Payer Address Payer Phone Subscriber Number Group Number Insured Name Patient Relationship to Insured Coverage Start Date Coverage End Date [facility] (REFERRA L NEEDED) [address] [place] [phone] [id number] JORGE GRIMALDO Self - patient is the insured Medical (General) History Medical History History ICD Code Afib diabetes mellitus hypertension depression anxiety arthritis knees hx of bleeding ulcer c-diff 01/2019 Surgical History Surgery Date(Month/Year) section x2 hernia laperscopy x2 then 3rd hernia rep air
== END 2025-11-02 11:24 | disposition home or self-care (01) ==
LOC: HO.HMCH 09:55
PROVIDERS: PCP Internal Medicine; Visit Provider Internal Medicine
DX: N18.9 Chronic kidney disease, unspecified (principal)

== ENCOUNTER → 2025-11-02 09:54 | Outpatient (BNVA) | payer OTHER, SELFPAY | PROVIDERS: PCP Internal Medicine; Visit Provider Internal Medicine | DX: I12.9 Hypertensive chronic kidney disease with stage 1 through stage 4 chronic kidney disease, or unspecified chronic kidney disease (principal); N18.9 Chronic kidney disease, unspecified; Z87.891 Personal history of nicotine dependence | CPT/HCPCS: 99212 ==